=== PATIENT | female | born 1945 | race Caucasian/White ===

== ENCOUNTER 2016-07-23 13:52 | Emergency (ER) | payer OTHER ==
[2016-07-23] MEDS ORDERED: ALBUTEROL SO4 2.5/IPRATROPIUM 0.5 INH SOL 3 ML VIAL.NEB. NEB ONE ×3 (14:03→15:32)
[2016-07-23] MEDS ORDERED: methylPREDNISolone NA SUCC 125 MG/2 ML VIAL ONE (14:03)
[2016-07-23 14:04] VITALS: BMI 27.4
[2016-07-23] MEDS ORDERED: KETOROLAC TROMETHAMINE 30 MG/1 ML VIAL IVPUSH ONE (14:25)
[2016-07-23] MEDS ORDERED: KETOROLAC TROMETHAMINE 15 MG/ML VIAL ONE (14:31)
--- NOTE | 2016-07-23 14:38 | PDOC ---
History of Present Illness - General Chief Complaint: Shortness of Breath Stated Complaint: ASTHMA ATTACK Time Seen by Provider: 07/23/16 14:00 History Source: Patient Exam Limitations: No Limitations - History of Present Illness Initial Comments: 07/23/16 14:46 71y F hx of asthma , hl, presents with cough and back pain. Pt states she has been coughing for a whiel (Since last year) nonprducitve without any fever/ chills, pt states after coughing 4 days ago, she developed back pain worse when she coughs and moves (specifically with twisthing motion). pt denies any chest pain, shortness of breath, abd pain, n/v, leg swelling, hemoptysis. per ems pt had wheezing diffusely was given nebs and solumedrol. Past History - Past Medical History Allergies/Adverse Reactions: Allergies Allergy/AdvReac Type Severity Reaction Status Date / Time No Known Allergies Allergy Verified 07/23/16 14:04 Home Medications: Ambulatory Orders Ibuprofen [Motrin -] 800 mg PO TID #30 tablet 01/14/15 Rosuvastatin Calcium [Crestor] 20 mg PO HS 01/14/15 Albuterol Sulfate Inhaler - [Ventolin HFA Inhaler -] 1 - 2 inh PO Q4H #1 inhaler 07/23/16 Albuterol Sulfate Inhaler - [Ventolin Hfa Inhaler -] 2 inh PO Q6H 07/23/16 Benzonatate [Tessalon Pearls -] 100 mg PO TID 07/23/16 Guaifenesin AC [Robitussin AC] 10 ml PO Q8H PRN #150 ml MDD 30 07/23/16 Mometasone/Formoterol [Dulera 200 Mcg/5 Mcg Inhaler] 2 inh IH BID 07/23/16 Nabumetone [Relafen -] 1,000 mg PO DAILY 07/23/16 Prednisone [Deltasone -] 40 mg PO DAILY #8 tablet 07/23/16 Promethazine HCl [Phenergan Liquid -] 5 ml PO TID PRN 07/23/16 Pseudoephedrine HCl [Sudafed 12 Hour] 120 mg PO BID 07/23/16 Asthma: Yes Hypercholesterolemia: Yes - Psycho/Social/Smoking Cessation Hx Anxiety: No Suicidal Ideation: No Smoking History: Never smoked Have you smoked in the past 12 months: No Hx Alcohol Use: No Drug/Substance Use Hx: No Substance Use Type: None Review of Systems - Review of Systems Able to Perform ROS?: Yes Comments:: 07/23/16 14:49 Constitutional - no reported Fever, Chills, weakness, HEENT: no reported vision changes, sore throat Respiratory: +cough, no reported sob, hemoptysis Cardiac: no reported chest pain, palpitations, light headedness, leg swelling Abd/GI: no reported abd pain, nausea, vomiting, blood per rectum, melena, diarrhea : no reported dysuria, frequency, discharge Musculskelatal - +back pain, no reported joint swelling skin - no reported bruising, erythema, rash neurological: no reported headache, numbness, focal weakness, tingling, ataxia, weakness hematologic: no reported anemia, easy bruising, easy bleeding *Physical Exam - Vital Signs Last Vital Signs Temp Pulse Resp BP Pulse Ox 98.7 F 97 H 18 153/85 95 07/23/16 14:01 07/23/16 14:01 07/23/16 14:01 07/23/16 14:01 07/23/16 14:01 - Physical Exam Comments: 07/23/16 14:49 GENERAL: The patient is awake, alert, and fully oriented, Nontoxic - in no acute distress. HEAD: Normocephalic, atraumatic. EYES: extraocular movements intact, sclera anicteric, conjunctiva clear. ENT: Normal voice, Moist mucous membranes, +nasal congestion NECK: Normal range of motion, supple LUNGS: scattered wheezing, no respiratory distress, no rales HEART: Regular rate and rhythm, normal S1 and S2 without murmur, rub or gallop. ABDOMEN: Soft, nontender, normoactive bowel sounds. No guarding, no rebound. No CVA tenderness BACK: no focal tenderness in cervical/thoracic/lumbar midline, +tenderness of the lower back/flank also reproducible when pt is turned to left EXTREMITIES: Normal range of motion, no edema. No clubbing or cyanosis. No cords, erythema, or tenderness. NEUROLOGICAL: No facial assymetry, Normal speech, PSYCH: Normal mood, normal affect. SKIN: Warm, Dry, normal turgor, Heart Score/ECG Review - ECG Impressions Comment:: 07/23/16 16:08 Twelve-lead EKG was performed and reviewed by me. There is normal sinus rhythm with a normal rate. rate of 94 The axis is normal. The intervals are normal. There is normal R wave progression There are no ST or T wave abnormalities. Impression: Normal twelve-lead EKG ED Treatment Course - LABORATORY CBC & Chemistry Diagram: 07/23/16 14:40 07/23/16 14:40 - RADIOLOGY Radiology Studies Ordered: Category Date Time Status CHEST X-RAY PORTABLE* [RAD] Stat Radiology 07/23/16 14:25 Ordered Medical Decision Making - Medical Decision Making 07/23/16 16:56 71y F presents with worsening coughing especially in evening as well as 4 days of L sided back pain after a coughing epsidoe. pts exam noted for mild wheezing, s/p solumedrol, nebs by EMS pts labs unremarakble cxr negative suspect asthma exacerbation will give rx for steroids, nebs will hve pt fu with pmd and pulmonary I discussed the physical exam findings, ancillary test results and final diagnoses with the patient. I answered all of the patient's questions. The patient was satisfied with the care received and felt comfortable with the discharge plan and treatment plan. The patient will call their primary care physician within 24 hours to arrange follow-up and will return to the Emergency Department with any new, persistent or worsening symptoms. case was discused with the pts PMD - agree with management and will hav pt fu with him next week. *DC/Admit/Observation/Transfer Diagnosis at time of Disposition: Asthma attack, Bronchospasm - Discharge Dispostion Disposition: HOME Condition at time of disposition: Improved Admit: No - Prescriptions Prescriptions: Prednisone [Deltasone -] 40 mg PO DAILY #8 tablet Guaifenesin AC [Robitussin AC] 10 ml PO Q8H PRN #150 ml MDD 30 PRN Reason: Cough Albuterol Sulfate Inhaler - [Ventolin HFA Inhaler -] 1 - 2 inh PO Q4H #1 inhaler - Referrals Referrals: Alex Proctor [Primary Care Provider] - - Patient Instructions Printed Discharge Instructions: DI for Asthma -- Adult Additional Instructions: Return to the emergency department immediately with ANY new, persistent or worsening symptoms. You MUST call and follow up with your doctor tomorrow for further evaluation of your symptoms. Results were discussed with you. Please make sure your doctor reviews the results of your emergency evaluation. If you had any xrays during your visit, it was read preliminarily by myself, a Radiologist will review it and if there are any additional findings we will call you. Print Language: BARBADIAN
[2016-07-23 14:45] LABS: VENOUS BLOOD GAS HCO3 25.5 meq/L (19-25); VENOUS PH 7.4 (7.32-7.42)
[2016-07-23 14:47] LABS: BASOPHIL 0.5 % (0-2.0); EOSINOPHIL 10.4 % (0-4.5); MCH 27.6 pg (25.7-33.7); MCHC 33.1 g/dl (32.0-36.0); MEAN CELL VOLUME 83.3 fl (80-96); MEAN PLT VOLUME 7.2 fl (7.5-11.1); NEUTROPHILS 72.9 % (42.8-82.8); PLATELET COUNT 265 K/MM3 (134-434); RDW 14.3 % (11.6-15.6); WHITE BLOOD COUNT 8.5 K/mm3 (4.0-10.0)
[2016-07-23 15:12] LABS: ALBUMIN 3.5 g/dl (3.4-5.0); ANION GAP 13 (8-16); BILIRUBIN,TOTAL 0.6 mg/dL (0.2-1.0); CALCIUM 8.8 mg/dL (8.5-10.1); CO2 26 mmol/L (21-32); CREATININE 0.7 mg/dL (0.55-1.02); GLUCOSE,RANDOM 101 mg/dL (74-106); SGOT/AST 14 U/L (15-37); SGPT/ALT 21 U/L (12-78); TOT PROT 7.9 g/dl (6.4-8.2)
[2016-07-23 15:14] LABS: ALK PHOS 118 U/L (45-117); TROPONIN I < 0.02 ng/ml (0.00-0.05)
[2016-07-23] MEDS ORDERED: POTASSIUM CHLORIDE TABS 20 MEQ TABLET.ER (FP) PO ONE ×2 (15:44→15:56)
[2016-07-23] MEDS ORDERED: guaiFENesin/CODEINE 10 ML UNIT-DOSE CUPS PO ONE (15:57)
[2016-07-23] MEDS ORDERED: guaiFENesin/CODEINE 5 ML UNIT-DOSE CUPS PO ONE (15:58)
[2016-07-23] MEDS ORDERED: OXYCODONE/APAP 5/325MG COMBO TABLET PO ONE (16:55)
[2016-07-23] MEDS ORDERED: OXYCODONE/APAP 5/325MG COMBO TABLET ONE (17:11)
[2016-07-23 17:17] VITALS: BP 147/82; PULSE 96; TEMP 97.9
--- NOTE | 2016-07-23 18:20 | EKG ---
Test Reason : Blood Pressure : / mmHG Vent. Rate : 094 BPM Atrial Rate : 094 BPM P-R Int : 208 ms QRS Dur : 102 ms QT Int : 376 ms P-R-T Axes : 072 041 046 degrees QTc Int : 470 ms NORMAL SINUS RHYTHM POSSIBLE LEFT ATRIAL ENLARGEMENT BORDERLINE ECG WHEN COMPARED WITH ECG OF 11-MAR-2016 10:25, VENT. RATE HAS INCREASED BY 38 BPM QT HAS LENGTHENED Confirmed by DANIEL BOYCE, TONG ([id number]) on 07/23/2016 6:20:05 PM Referred By: Confirmed By:TONG SANCHEZ MD
== END 2016-07-23 17:28 | disposition home or self-care (01) ==
LOC: JER 13:52
PROC: 3E0F7GC Introduction of Other Therapeutic Substance into Respiratory Tract, Via Natural or Artificial Opening (ICD-10-PCS; principal; 2016-07-23)
PROC: 3E0333Z Introduction of Anti-inflammatory into Peripheral Vein, Percutaneous Approach (ICD-10-PCS; 2016-07-23)
DX: J45.901 Unspecified asthma with (acute) exacerbation (principal); E78.00 Pure hypercholesterolemia, unspecified
CPT/HCPCS: 36415; 71010-TC; 80053; 82550; 82803; 84484; 85025; 93005; 93010; 99283-25

== ENCOUNTER 2016-09-09 15:04 | Emergency (ER) | payer OTHER ==
[2016-09-09 15:18] VITALS: BP 149/79; TEMP 98.8; BMI 26.9
[2016-09-09] MEDS ORDERED: ALBUTEROL SO4 0.083% IH SOL 2.5 MG/3 ML VIAL.NEB. NEB ONE ×2 (16:26→16:55)
--- NOTE | 2016-09-09 16:33 | PDOC ---
History of Present Illness - General History Source: Patient Exam Limitations: No Limitations <Boston Jones - Last Filed: 09/09/16 21:29> - History of Present Illness Initial Comments: 09/09/16 18:04 Patient is a 71 year old female with significant medical hx of asthma and HTD who is presenting to the ED with productive cough for the past year. The patient endorses some associated intermittent chills, nasal congestion, and chest congestion with cough. Patient has been followed by her PMD and ENT for her symptoms, and has received multiple cultures and testing with no conclusion. The patient states that shes been on multiple abx, steroids, and other treatments that have not relieved her symptoms. She is scheduled for a CT tomorrow that was ordered by specialist. Denies any fever, chest pain, shortness of breath, sore throat, headaches, lightheadedness, weakness, or dizziness. The patient was seen in the ED on 07/23/16 for the similar complaint. PMD: Alex Proctor MD <Nicol Cisneros - Last Filed: 09/09/16 21:54> - General Chief Complaint: Respiratory Stated Complaint: SOB, BACK PAIN, COUGH Time Seen by Provider: 09/09/16 16:17 Past History - Past Medical History Asthma: Yes Hypercholesterolemia: Yes - Psycho/Social/Smoking Cessation Hx Anxiety: No Suicidal Ideation: No Smoking History: Never smoked Have you smoked in the past 12 months: No Hx Alcohol Use: No Drug/Substance Use Hx: No Substance Use Type: None <Boston Jones - Last Filed: 09/09/16 21:29> <Nicol Cisneros - Last Filed: 09/09/16 21:54> - Past Medical History Allergies/Adverse Reactions: Allergies Allergy/AdvReac Type Severity Reaction Status Date / Time prednisone AdvReac Verified 09/09/16 15:12 Home Medications: Ambulatory Orders Ibuprofen [Motrin -] 800 mg PO TID #30 tablet 01/14/15 Rosuvastatin Calcium [Crestor] 20 mg PO HS 01/14/15 Albuterol Sulfate Inhaler - [Ventolin HFA Inhaler -] 1 - 2 inh PO Q4H #1 inhaler 07/23/16 Albuterol Sulfate Inhaler - [Ventolin Hfa Inhaler -] 2 inh PO Q6H 07/23/16 Benzonatate [Tessalon Pearls -] 100 mg PO TID 07/23/16 Guaifenesin AC [Robitussin AC] 10 ml PO Q8H PRN #150 ml MDD 30 07/23/16 Mometasone/Formoterol [Dulera 200 Mcg/5 Mcg Inhaler] 2 inh IH BID 07/23/16 Nabumetone [Relafen -] 1,000 mg PO DAILY 07/23/16 Prednisone [Deltasone -] 40 mg PO DAILY #8 tablet 07/23/16 Promethazine HCl [Phenergan Liquid -] 5 ml PO TID PRN 07/23/16 Pseudoephedrine HCl [Sudafed 12 Hour] 120 mg PO BID 07/23/16 Benzonatate [Tessalon Pearls -] 100 mg PO TID PRN #21 capsule 09/09/16 Review of Systems - Review of Systems Comments:: 09/09/16 18:06 GENERAL/CONSTITUTIONAL: Chills. No fever. No weakness. HEAD, EYES, EARS, NOSE AND THROAT: Nasal congestion. No change in vision. No ear pain or discharge. No sore throat. CARDIOVASCULAR: No chest pain or shortness of breath. RESPIRATORY: Productive cough, chest congestion. No wheezing, or hemoptysis. GASTROINTESTINAL: No nausea, vomiting, diarrhea or constipation. GENITOURINARY: No dysuria, frequency, or change in urination. MUSCULOSKELETAL: No joint or muscle swelling or pain. No neck or back pain. SKIN: No rash NEUROLOGIC: No headache, vertigo, loss of consciousness, or change in strength/ sensation. <Nicol Cisneros - Last Filed: 09/09/16 21:54> *Physical Exam - Vital Signs Last Vital Signs Temp Pulse Resp BP Pulse Ox 98.8 F 87 19 149/79 95 09/09/16 15:13 09/09/16 15:13 09/09/16 15:13 09/09/16 15:13 09/09/16 15:13 <Boston Jones - Last Filed: 09/09/16 21:29> - Vital Signs Last Vital Signs Temp Pulse Resp BP Pulse Ox 98.8 F 101 H 19 149/79 95 09/09/16 15:13 09/09/16 17:25 09/09/16 15:13 09/09/16 15:13 09/09/16 17:25 - Physical Exam Comments: 09/09/16 18:07 GENERAL: Awake, alert, and fully oriented, in no acute distress HEAD: No signs of trauma EYES: PERRLA, EOMI, sclera anicteric, conjunctiva clear ENT: Auricles normal inspection, hearing grossly normal, nares patent, oropharynx clear without exudates. Moist mucosa. Nasal congestion. NECK: Normal ROM, supple, no lymphadenopathy, JVD, or masses LUNGS: Coughing frequently during exam. Intermittent rhonchorous breath sounds bilaterally. No wheezes, and no crackles HEART: Regular rate and rhythm, normal S1 and S2, no murmurs, rubs or gallops ABDOMEN: Soft, nontender, normoactive bowel sounds. No guarding, no rebound. No masses EXTREMITIES: Normal range of motion, no edema. No clubbing or cyanosis. No cords, erythema, or tenderness NEUROLOGICAL: Cranial nerves II through XII grossly intact. Normal speech, normal gait SKIN: Warm, Dry, normal turgor, no rashes or lesions noted. ENDOCRINE: No increased thirst. No abnormal weight change. HEMATOLOGIC/LYMPHATIC: No anemia, easy bleeding, or history of blood clots. ALLERGIC/IMMUNOLOGIC: No hives or skin allergy. <Nicol Cisneros - Last Filed: 09/09/16 21:54> Heart Score/ECG Review #1 ECG reviewed & interpreted by me at: 17:35 09/09/16 17:48 NSR 93, no std/jarek, TWI III, TWI V3, QTC 455 msec <Boston Jones - Last Filed: 09/09/16 21:29> ED Treatment Course - LABORATORY CBC & Chemistry Diagram: 09/09/16 17:20 09/09/16 17:20 - RADIOLOGY Radiology Studies Ordered: Category Date Time Status CHEST PA & LAT [RAD] Stat Radiology 09/09/16 16:26 Ordered <Boston Jones - Last Filed: 09/09/16 21:29> - LABORATORY CBC & Chemistry Diagram: 09/09/16 17:20 09/09/16 17:20 - ADDITIONAL ORDERS Additional order review: Laboratory Results 09/09/16 09/09/16 17:20 17:20 Sodium 140 Potassium 3.2 L Chloride 101 Carbon Dioxide 29 Anion Gap 10 BUN 5 L D Creatinine 0.6 Creat Clearance w eGFR > 60 Random Glucose 86 Lactic Acid 1.099 Calcium 9.1 Total Bilirubin 0.5 AST 13 L ALT 14 D Alkaline Phosphatase 111 Creatine Kinase 69 Troponin I < 0.02 Total Protein 8.1 Albumin 3.2 L 09/09/16 17:20 Influenza Types A,B Antigen (ARIES) - Final Nasopharyngeal Swab - Final 09/09/16 17:20 RBC 4.27 MCV 82.3 MCHC 32.9 RDW 14.3 MPV 7.9 Neutrophils % Y Lymphocytes % Y - RADIOLOGY Radiograph Interpretation: 09/09/16 18:47 Chest X-Ray Impression: Right hilum for which further evaluation with contrast -enhanced CT scan of the chest is recommended. ADDENDUM: There is an error in the impression that should be read; Prominent right hilum for which further evaluation with contrast-enhanced CT scan of the chest recommended. Reported By: Lay Heck MD 09/09/16 21:[address] Impression: Large mediastinal and bilateral hilar lymph nodes, as described. Right infrahilar 2.3 cm mass suggestive of an infrahilar lymph node versus lung mass for which further evaluation is recommended. It is causing moderate narrowing of the adjacent right middle lobe bronchus. There is adjacent subsegmental atelectasis and scarring in the dependent portion of the right middle lobe, posteriorly. Reported By: Lay Heck md - Medications Given in the ED: ED Medications Discontinued Medications Generic Name Dose Route Start Last Admin Trade Name Freq PRN Reason Stop Dose Admin Albuterol Sulfate 1 amp 09/09/16 16:26 09/09/16 17:21 Ventolin 0.083% Nebulizer Soln - NEB 09/09/16 16:27 1 amp ONCE ONE Administration <Nicol Cisneros - Last Filed: 09/09/16 21:54> Medical Decision Making - Medical Decision Making 09/09/16 16:28 A portion of this note was written by my scribe, under my supervision. Vital Signs Temp Pulse Resp BP Pulse Ox 98.8 F 87 19 149/79 95 09/09/16 15:13 09/09/16 15:13 09/09/16 15:13 09/09/16 15:13 09/09/16 15:13 71 year old female c/ pmh of asthma, HLD p/w cough x 1 year. The patient reports coughing x 1 year with nasal congestion and chest congestion. No fevers. The patient has been under significant investigation with her PMD and ENT with multiple tests including cultures, nasal scoping, but with no avail. She has been on intermittent antibiotics, steroids, treatments with no help. Pt was referred to see another specialist and has a CT scan prepared for tomorrow. Pt continues to feel unwell with intermittent chills x 1 year. Came in for an evaluation. Adult sepsis protocol initiated. Unclear what the etiology is given persistence of symptoms. Will obtain labs, chest xray, cultures and reassess. Trial nebs. This is likely a chronic condition that will require further outpatient workup given the chronicity of complaints. 09/09/16 21:20 Chest x-ray demonstrates abnormal findings requesting CT chest with IV contrast. CT chest was pursued. Demonstrates large mediastinal and bilateral hilar lymph nodes. Right infrahilar 2.3 certainly or masses suggestive of an for hilar lymph node versus lung mass. It is causing moderate narrowing of the adjacent right middle lobe bronchus. There is adjacent subsegmental atelectasis and scarring in the dependent portion of the right middle lobe, posteriorly. CBC, BMP 09/09/16 17:20 09/09/16 17:20 CMP Sodium 140 mmol/L (136-145) 09/09/16 17:20 Potassium 3.2 mmol/L (3.5-5.1) L 09/09/16 17:20 Chloride 101 mmol/L (98-107) 09/09/16 17:20 Carbon Dioxide 29 mmol/L (21-32) 09/09/16 17:20 Anion Gap 10 (8-16) 09/09/16 17:20 BUN 5 mg/dL (7-18) L D 09/09/16 17:20 Creatinine 0.6 mg/dL (0.55-1.02) 09/09/16 17:20 Creat Clearance w eGFR > 60 (>60) 09/09/16 17:20 Random Glucose 86 mg/dL (74-106) 09/09/16 17:20 Lactic Acid 1.099 mmol/L (0.4-2.0) 09/09/16 17:20 Calcium 9.1 mg/dL (8.5-10.1) 09/09/16 17:20 Total Bilirubin 0.5 mg/dL (0.2-1.0) 09/09/16 17:20 AST 13 U/L (15-37) L 09/09/16 17:20 ALT 14 U/L (12-78) D 09/09/16 17:20 Alkaline Phosphatase 111 U/L (45-117) 09/09/16 17:20 Creatine Kinase 69 IU/L (26-192) 09/09/16 17:20 Troponin I < 0.02 ng/ml (0.00-0.05) 09/09/16 17:20 Total Protein 8.1 g/dl (6.4-8.2) 09/09/16 17:20 Albumin 3.2 g/dl (3.4-5.0) L 09/09/16 17:20 I explained to the patient that she had very abnormal CAT scan demonstrated multiple lymph nodes and lung mass. These findings are concerning for lymphoma versus lung cancer. I had explained to the patient that this is malignancy until proven otherwise. He should son is at the bedside and verbalized understanding as well as the patient. Given that this is a chronic issue for the one year, and that patient has follow-up with her doctors, and the patient is on respiratory distress, we'll have her follow-up as an outpatient. Patient verbalizes and agrees with the plan. We'll give referral to router operator and oncologist. Return precautions given including difficulty breathing. I discussed the physical exam findings, ancillary test results and final diagnoses with the patient. I answered all of the patient's questions. The patient was satisfied with the care received and felt comfortable with the discharge plan and treatment plan. The patient will call their primary care physician within 24 hours to arrange follow-up and will return to the Emergency Department with any new, persistant or worsening symptoms. <Boston Jones - Last Filed: 09/09/16 21:29> *DC/Admit/Observation/Transfer - Discharge Dispostion Admit: No <Boston Jones - Last Filed: 09/09/16 21:29> - Attestations Scribe Attestion: 09/09/16 18:08 Documentation prepared by Nicol Cisneros, acting as biomedical technician for Boston Jones MD. <Nicol Cisneros - Last Filed: 09/09/16 21:54> Diagnosis at time of Disposition: Lung mass - Discharge Dispostion Disposition: HOME Condition at time of disposition: Stable - Prescriptions Prescriptions: Benzonatate [Tessalon Pearls -] 100 mg PO TID PRN #21 capsule PRN Reason: Cough - Referrals Referrals: Alex Proctor [Primary Care Provider] - Cesar Roblero MD [Staff Physician] - Luis Hinkle MD [Staff Physician] - Laura Mustafa MD [Staff Physician] - - Patient Instructions Printed Discharge Instructions: DI for Cough -- Adult Additional Instructions: You have been given a copy of your CAT scan. Your CAT scan has multiple enlarged lymph nodes and lung mass. This needs to be investigated for potential cancer. It is very important that you schedule appointment with a router operator and oncologist. Here are the numbers for them. Call tomorrow to schedule appointment.
[2016-09-09 17:29] VITALS: PULSE 101
[2016-09-09 17:33] LABS: MCH 27.1 pg (25.7-33.7); MCHC 32.9 g/dl (32.0-36.0); MEAN CELL VOLUME 82.3 fl (80-96); MEAN PLT VOLUME 7.9 fl (7.5-11.1); PLATELET COUNT 275 K/MM3 (134-434); RDW 14.3 % (11.6-15.6); WHITE BLOOD COUNT 10.1 K/mm3 (4.0-10.0)
[2016-09-09 17:46] LABS: INR 1.23 (0.82-1.09); PROTHROMBIN TIME (PATIENT) 13.6 SEC (9.98-11.88)
[2016-09-09 17:49] LABS: ACTIVATED PTT 32.3 SECONDS (26.9-34.4)
[2016-09-09 17:57] LABS: ALBUMIN 3.2 g/dl (3.4-5.0); ANION GAP 10 (8-16); BILIRUBIN,TOTAL 0.5 mg/dL (0.2-1.0); CALCIUM 9.1 mg/dL (8.5-10.1); CO2 29 mmol/L (21-32); COCKROFT - GAULT 90.5165; CREATININE 0.6 mg/dL (0.55-1.02); GLUCOSE,RANDOM 86 mg/dL (74-106); SGOT/AST 13 U/L (15-37); SGPT/ALT 14 U/L (12-78); TOT PROT 8.1 g/dl (6.4-8.2)
[2016-09-09 18:00] LABS: ALK PHOS 111 U/L (45-117); TROPONIN I < 0.02 ng/ml (0.00-0.05)
[2016-09-09] MEDS ORDERED: POTASSIUM CHLORIDE TABS 20 MEQ TABLET.ER (FP) PO ONE ×2 (21:20→21:39)
[2016-09-09 22:18] LABS: ANISOCYTOSIS 1+; PLATELET COMMENT2 NO CLOTTING DETECTED; PLATELET ESTIMATE ADEQUATE (NORMAL)
--- NOTE | 2016-09-12 12:54 | EKG ---
Test Reason : Blood Pressure : / mmHG Vent. Rate : 093 BPM Atrial Rate : 093 BPM P-R Int : 166 ms QRS Dur : 102 ms QT Int : 366 ms P-R-T Axes : 034 004 016 degrees QTc Int : 455 ms NORMAL SINUS RHYTHM NORMAL ECG WHEN COMPARED WITH ECG OF 23-JUL-2016 14:28, T WAVE VARIATION Confirmed by PREET WEST MD ([id number]) on 09/12/2016 12:53:42 PM Referred By: Confirmed By:PREET WEST MD
== END 2016-09-09 22:03 | disposition home or self-care (01) ==
LOC: JER 15:04
PROC: 3E0F7GC Introduction of Other Therapeutic Substance into Respiratory Tract, Via Natural or Artificial Opening (ICD-10-PCS; principal; 2016-09-09)
DX: R91.8 Other nonspecific abnormal finding of lung field (principal); J45.909 Unspecified asthma, uncomplicated
CPT/HCPCS: 71020-TC; 71260-TC; 80053; 82550; 83605; 84484; 85025; 85610; 85730; 86850; 86900; 86901; 87040; 87804; 93005; 93010; 99282-25

== ENCOUNTER 2016-09-22 21:27 | Inpatient (IN) | payer OTHER ==
[2016-09-22] MEDS ORDERED: MAGNESIUM SULF 50% (8.12 MEQ/2 ML-1 GM VIAL) ONE ×2 (21:39→22:07)
[2016-09-22] MEDS ORDERED: ALBUTEROL SO4 2.5/IPRATROPIUM 0.5 INH SOL 3 ML VIAL.NEB. NEB ONE ×3 (21:40→22:08)
[2016-09-22 21:41] VITALS: BMI 26.2
--- NOTE | 2016-09-22 21:45 | PDOC ---
History of Present Illness <Nicol Csineros - Last Filed: 09/22/16 22:26> - General History Source: Patient Exam Limitations: No Limitations - History of Present Illness Initial Comments: 09/23/16 01:00 Patient was seen and evaluated by me immediately upon arrival. This H&P is being recorded post admission. Patient is 71-year-old female with history of asthma, brought in by EMS for shortness of breath that started several hours prior to arrival. Patient reports worsening dyspnea with minimal exertion for the past several days culminating with difficulty breathing on the day of presentation to the emergency room. Patient reports chronic productive cough with yellow sputum that has not changed significantly. Patient denies fever but complains of intermittent chills. Patient reports that her home albuterol nebulizer therapy did not help her symptoms. Patient has recently completed a prolonged course of prednisone. Patient denies chest pain/nausea/vomiting/ diarrhea/lower extremity swelling. Patient does report a severely pruritic erythematous rash to the lower extremities bilaterally, buttocks and trunk. Patient in the past and been treated with permethrine cream. REVIEW OF SYSTEMS CONSTITUTIONAL: No fever, no chills, no fatigue EYES: No visual changes ENT: No ear pain, no sore throat CARDIOVASCULAR: No chest pain, no palpitations RESPIRATORY: + cough, + SOB GI: No abdominal pain, no nausea, no vomiting, no constipation, no diarrhea GENITOURINARY: No dysuria, no frequency, no hematuria MUSKULOSKELETAL: No backpain, no joint pain, no myalgias SKIN: + Pruritic rash NEURO: No headache EXAMINATION CONSTITUTIONAL: On initial evaluation, patient was noted to be tachypneic and dyspneic, speaking in short phrases only, with paroxysms of cough, in moderate respiratory distress. HEAD: Normocephalic; atraumatic EYES: PERRL; EOM intact ENMT: External appears normal; normal oropharynx NECK: Supple; non-tender; no JVD CARD: Tachycardic; Normal S1, S2; no murmurs, rubs, or gallops RESP: On initial evaluation, patient noted to be tachypneic; with diffuse expiratory wheezing bilaterally significantly decreased air entry; respiratory rate on initial evaluation was noted to be 22; oxygen saturation room air was noted to be 88%, improving to 95% on 2 L via nasal cannula ABD: Soft, non-distended; non-tender; no palpable organomegaly, no palpable hernias EXT: Normal ROM in all four extremities; non-tender to palpation; distal pulses intact SKIN: Warm, dry, + maculopapular rash to the lower extremities, buttocks and trunk with extensive excoriations NEURO: No focal neurological deficiencies. <Hardik Iqbal - Last Filed: 09/23/16 01:42> - General Chief Complaint: Respiratory Stated Complaint: Respiratory Time Seen by Provider: 09/22/16 21:45 Past History <Nicol Cisneros - Last Filed: 09/22/16 22:26> - Past Medical History Asthma: Yes Hypercholesterolemia: Yes - Immunization History Immunization Up to Date: No - Psycho/Social/Smoking Cessation Hx Anxiety: No Suicidal Ideation: No Smoking History: Never smoked Have you smoked in the past 12 months: No Information on smoking cessation initiated: No Hx Alcohol Use: No Drug/Substance Use Hx: No Substance Use Type: None <Hardik Iqbal - Last Filed: 09/23/16 01:42> - Past Medical History Allergies/Adverse Reactions: Allergies Allergy/AdvReac Type Severity Reaction Status Date / Time prednisone AdvReac Verified 09/22/16 21:35 Home Medications: Ambulatory Orders Ibuprofen [Motrin -] 800 mg PO TID #30 tablet 01/14/15 Rosuvastatin Calcium [Crestor] 20 mg PO HS 01/14/15 Albuterol Sulfate Inhaler - [Ventolin HFA Inhaler -] 1 - 2 inh PO Q4H #1 inhaler 07/23/16 Albuterol Sulfate Inhaler - [Ventolin Hfa Inhaler -] 2 inh PO Q6H 07/23/16 Benzonatate [Tessalon Pearls -] 100 mg PO TID 07/23/16 Guaifenesin AC [Robitussin AC] 10 ml PO Q8H PRN #150 ml MDD 30 07/23/16 Mometasone/Formoterol [Dulera 200 Mcg/5 Mcg Inhaler] 2 inh IH BID 07/23/16 Nabumetone [Relafen -] 1,000 mg PO DAILY 07/23/16 Prednisone [Deltasone -] 40 mg PO DAILY #8 tablet 07/23/16 Promethazine HCl [Phenergan Liquid -] 5 ml PO TID PRN 07/23/16 Pseudoephedrine HCl [Sudafed 12 Hour] 120 mg PO BID 07/23/16 Benzonatate [Tessalon Pearls -] 100 mg PO TID PRN #21 capsule 09/09/16 *Physical Exam - Vital Signs Last Vital Signs Temp Pulse Resp BP Pulse Ox 99.0 F 108 H 28 H 140/98 96 09/22/16 21:35 09/22/16 21:35 09/22/16 21:35 09/22/16 21:35 09/22/16 21:35 <Nicol Cisneros - Last Filed: 09/22/16 22:26> - Vital Signs Last Vital Signs Temp Pulse Resp BP Pulse Ox 108 H 28 H 140/98 96 09/22/16 21:35 09/22/16 21:35 09/22/16 21:35 09/22/16 21:35 <Hardik Iqbal - Last Filed: 09/23/16 01:42> Heart Score/ECG Review - ECG Intrepretation Comment:: 09/23/16 01:38 111, sinus tachycardia, left atrial enlargement, normal axis, inverted T waves in 3 and aVF, negative voltage criteria for LVH, abnormal EKG. <Hardik Iqbal - Last Filed: 09/23/16 01:42> ED Treatment Course - RADIOLOGY Radiograph Interpretation: 09/22/16 22:09 Sinus tachycardia at 111 bpm Possible left atrial enlargement T wave abnormality, consider inferior ischemia Abnormal ECG 09/22/16 22:26 Chest X-Ray Impression: Moderate chronic interstitial lung disease with no evidence of acute pathology. Reported By: Eliezer Casanova MD <Nicol Cisneros - Last Filed: 09/22/16 22:26> - LABORATORY CBC & Chemistry Diagram: 09/22/16 23:10 09/22/16 23:10 <Hardik Iqbal - Last Filed: 09/23/16 01:42> Medical Decision Making - Medical Decision Making 09/23/16 01:39 Patient is 71-year-old female with history of asthma presents to the ER with signs and symptoms of acute asthma exacerbation and a pruritic rash. Patient received continuous nebulizer therapy with Combivent, Solu-Medrol and magnesium sulfate with clinical improvement, decreased expiratory wheezing and increased air entry bilaterally. Patient continues to have expiratory wheezing and intermittent rhonchi diffusely in all lung serna. I saturation on 2 L via nasal cannula is noted to be 94%. This time, patient is resting comfortably. CBC reveals no evidence of leukocytosis, predominance of isn't of pills is noted. CMP reveals moderate hypokalemia of 2.9. EKG reveals no evidence of prolonged QTc. Patient received Selene Dur-40 mEq by mouth and is currently receiving KCl IV. Chest x-ray reveals increased interstitial markings likely consistent with chronic interstitial lung disease. A CT performed at the one month prior at this institution revealed enlarged bilateral mediastinal lymphadenopathy and a questionable right infrahilar mass versus lymph node. Differential diagnoses include sarcoid. Patient is scheduled follow-up with pulmonary in September. At this time, patient will require admission for continuous nebulizer therapy, supplemental O2 support and continuous potassium replenishment. Given the patient's ration previous history of being treated with permethrine, patient will be placed and contact isolation. <Hardik Iqbal - Last Filed: 09/23/16 01:42> *DC/Admit/Observation/Transfer <Nicol Cisneros - Last Filed: 09/22/16 22:26> - Discharge Dispostion Admit: Yes <Hardik Iqbal - Last Filed: 09/23/16 01:42> Diagnosis at time of Disposition: Rash Asthma with acute exacerbation Qualifiers: Asthma severity: moderate persistent Qualified Code(s): J45.41 - Moderate persistent asthma with (acute) exacerbation - Discharge Dispostion Condition at time of disposition: Fair
[2016-09-22] MEDS ORDERED: MAGNESIUM SULF 50% (8.12 MEQ/2 ML-1 GM VIAL) IVPB ONE (22:00)
[2016-09-22] MEDS ORDERED: methylPREDNISolone NA SUCC 125 MG/2 ML VIAL IVPB ONE (22:00)
[2016-09-22] MEDS ORDERED: methylPREDNISolone NA SUCC 125 MG/2 ML VIAL ONE (22:08)
[2016-09-22] MEDS ORDERED: LEVOFLOXACIN 500 MG IVPB 100 ML IVPB ONE ×2 (22:52→23:15)
[2016-09-22 23:16] LABS: MCH 27.1 pg (25.7-33.7); MCHC 33.1 g/dl (32.0-36.0); MEAN CELL VOLUME 81.9 fl (80-96); MEAN PLT VOLUME 7.6 fl (7.5-11.1); PLATELET COUNT 255 K/MM3 (134-434); RDW 14.8 % (11.6-15.6); WHITE BLOOD COUNT 11.1 K/mm3 (4.0-10.0)
[2016-09-22 23:32] LABS: INR 1.19 (0.82-1.09); PROTHROMBIN TIME (PATIENT) 13.1 SEC (9.98-11.88)
[2016-09-22 23:42] LABS: ALBUMIN 2.8 g/dl (3.4-5.0); ANION GAP 13 (8-16); BILIRUBIN,TOTAL 0.4 mg/dL (0.2-1.0); CALCIUM 8.4 mg/dL (8.5-10.1); CO2 23 mmol/L (21-32); CREATININE 0.6 mg/dL (0.55-1.02); GLUCOSE,RANDOM 152 mg/dL (74-106); SGOT/AST 11 U/L (15-37); SGPT/ALT 16 U/L (12-78); TOT PROT 7.7 g/dl (6.4-8.2)
[2016-09-22 23:44] LABS: ALK PHOS 110 U/L (45-117); TROPONIN I < 0.02 ng/ml (0.00-0.05)
[2016-09-22 23:46] LABS: PLATELET ESTIMATE ADEQUATE (NORMAL)
[2016-09-22] MEDS ORDERED: POTASSIUM CHLORIDE TABS 20 MEQ TABLET.ER (FP) PO ONE ×2 (23:46→23:53)
[2016-09-22] MEDS ORDERED: KCL 10 MEQ IVPB 100 ML IVPB ONE (23:53)
[2016-09-23] MEDS ORDERED: KCL 10 MEQ IVPB 100 ML IVPB ONE ×2 (01:26→02:54)
[2016-09-23] MEDS: KCL 10 MEQ IVPB 100 ML IVPB SCH ×3 (01:27→02:52)
--- NOTE | 2016-09-23 02:08 | HP ---
CHIEF COMPLAINT: shortness of breath PCP: Dr Espino Pulmonology: Dr So García HISTORY OF PRESENT ILLNESS: 71 abad old male with pmh asthma, HPLD presented to ED brought by ambulance with complaint of shortness of breath. Yesterday, the patient started having severe shortness of breath with wheezing and her inhaler was of no help. Pt also complained of dyspnea on exertion, orthopnea, productive cough wiht yellow sputum. No fever or chills, no n/v, no chest pain or palpitation. The patient has been having shortness of breath and cough chronically for the past year and the symptoms has been worsening with increased frequency of ED visits. The patient has just finished a long steroid taper and was supposed to see a rules examiner Dr García on Tuesday September 27, 2016. Pt also said she was supposed to have sinus surgery for chronic sinusitis and deviated septum. Pt aslo complained of poor appetite and 10 lbs weight loss in past 2 weeks. 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 Family History: brother with multiple CA, first one at 49, father with asthma and CA Allergies prednisone Adverse Reaction (Verified 09/22/16 21:35) HOME MEDICATIONS: Home Medications Medication Instructions Recorded Ibuprofen [Motrin -] 800 mg PO TID #30 tablet 01/14/15 Rosuvastatin Calcium [Crestor] 20 mg PO HS 01/14/15 Albuterol Sulfate Inhaler - 1 - 2 inh PO Q4H #1 inhaler 07/23/16 [Ventolin HFA Inhaler -] Albuterol Sulfate Inhaler - 2 inh PO Q6H 07/23/16 [Ventolin Hfa Inhaler -] Benzonatate [Tessalon Pearls -] 100 mg PO TID 07/23/16 Guaifenesin AC [Robitussin AC] 10 ml PO Q8H PRN #150 ml MDD 30 07/23/16 Mometasone/Formoterol [Dulera 200 2 inh IH BID 07/23/16 Mcg/5 Mcg Inhaler] Nabumetone [Relafen -] 1,000 mg PO DAILY 07/23/16 Prednisone [Deltasone -] 40 mg PO DAILY #8 tablet 07/23/16 Promethazine HCl [Phenergan Liquid 5 ml PO TID PRN 07/23/16 -] Pseudoephedrine HCl [Sudafed 12 120 mg PO BID 07/23/16 Hour] Benzonatate [Tessalon Pearls -] 100 mg PO TID PRN #21 capsule 09/09/16 REVIEW OF SYSTEMS CONSTITUTIONAL: generalized weakness,loss of appetite, weight change Absent: fever, chills, diaphoresis, malaise, HEENT: rhinorrhea, nasal congestion Absent: throat pain, throat swelling, difficulty swallowing, mouth swelling, ear pain, eye pain, visual changes CARDIOVASCULAR: lightheadedness, Absent: chest pain, syncope, palpitations, irregular heart rate, peripheral edema RESPIRATORY: cough, shortness of breath, dyspnea with exertion, orthopnea, wheezing Absent: , stridor, hemoptysis GASTROINTESTINAL: Absent: abdominal pain, abdominal distension, nausea, vomiting, diarrhea, constipation, melena, hematochezia GENITOURINARY: Absent: dysuria, frequency, urgency, hesitancy, hematuria, flank pain, genital pain MUSCULOSKELETAL: Absent: myalgia, arthralgia, joint swelling, back pain, neck pain SKIN: itching, rash Absent: pallor HEMATOLOGIC/IMMUNOLOGIC: Absent: easy bleeding, easy bruising, lymphadenopathy, frequent infections ENDOCRINE: Absent: unexplained weight gain, unexplained weight loss, heat intolerance, cold intolerance NEUROLOGIC: Absent: headache, focal weakness or paresthesias, dizziness, unsteady gait, seizure, mental status changes, bladder or bowel incontinence PSYCHIATRIC: Absent: anxiety, depression, suicidal or homicidal ideation, hallucinations. PHYSICAL EXAMINATION Vital Signs - 24 hr 09/22/16 09/22/16 21:35 23:10 Temperature 99.0 F Pulse Rate 108 H Respiratory 28 H Rate Blood Pressure 140/98 O2 Sat by Pulse 96 93 L Oximetry (%) GENERAL: Awake, alert, and fully oriented, in no acute distress. HEAD: Normal with no signs of trauma. EYES: Pupils equal, round and reactive to light, extraocular movements intact, sclera anicteric, conjunctiva clear. No lid lag. EARS, NOSE, THROAT: Ears normal, nares patent, oropharynx clear without exudates. Moist mucous membranes. NECK: Normal range of motion, supple without lymphadenopathy, JVD, or masses. LUNGS: Breath sounds equal, clear to auscultation bilaterally. No wheezes, and no crackles. No accessory muscle use. HEART: Regular rate and rhythm, normal S1 and S2 without murmur, rub or gallop. ABDOMEN: Soft, nontender, not distended, normoactive bowel sounds, no guarding, no rebound, no masses. No hepatomegaly or splenomegaly. MUSCULOSKELETAL: Normal range of motion at all joints. No bony deformities or tenderness. No CVA tenderness. UPPER EXTREMITIES: 2+ pulses, warm, well-perfused. No cyanosis. No clubbing. No peripheral edema. LOWER EXTREMITIES: 2+ pulses, warm, well-perfused. No calf tenderness. No peripheral edema. NEUROLOGICAL: Cranial nerves II-XII intact. Normal speech. Normal gait. PSYCHIATRIC: Cooperative. Good eye contact. Appropriate mood and affect. SKIN: Warm, dry, normal turgor, no rashes or lesions noted, normal capillary refill. pruritic papular rash in back, b/l lower extremities and b/l arms with area of excoriation and abrasion from scratching Laboratory Results - last 24 hr 09/22/16 09/22/16 09/22/16 23:10 23:10 23:10 WBC 11.1 H RBC 4.21 Hgb 11.4 Hct 34.5 MCV 81.9 MCHC 33.1 RDW 14.8 Plt Count 255 MPV 7.6 Neutrophils % 55.0 Lymphocytes % 6.0 L D Monocytes % 9.0 Eosinophils % 27.0 H* Band Neutrophils 2.0 D Platelet Estimate Adequate Platelet Comment No clumping noted INR 1.19 H Sodium 138 Potassium 2.9 L* Chloride 102 Carbon Dioxide 23 D Anion Gap 13 BUN 8 D Creatinine 0.6 Creat Clearance w eGFR > 60 Random Glucose 152 H D Calcium 8.4 L Total Bilirubin 0.4 AST 11 L ALT 16 Alkaline Phosphatase 110 Creatine Kinase 38 Troponin I < 0.02 Total Protein 7.7 Albumin 2.8 L CBC, [facility] 09/22/16 23:10 09/22/16 23:10 CT chest with IV contrast : 09/09/2016: Large mediastinal and bilateral hilar lymph nodes, as described above. Right infrahilar 2.3 cm mass suggestive of an infrahilar lymph node versus lung mass for which further evaluation is recommended. It is causing moderate narrowing of the adjacent right middle lobe bronchus. There is adjacent subsegmental atelectasis and scarring in the dependent portion of the right middle lobe, posteriorly. ASSESSMENT/PLAN: Asthma exacerbation r/o Interstitial Lung disease (sarcoid), Lung Malignancy, Consider [place] Less likely interstitial pneumonia or COPD exacerbation Eosinophils 28% Pt has asthma per history consider differential for eosinophils such as neoplasm, asthma, aspergellosis, parasite infections, [place] Pt has asthma per history Due to the chronicity of symptoms and the finding of CXR and CT chest, have to consider Sarcoidosis with b/l hilar lymphadenopathy with interstitial lung finding Consider ROBLES level CBC with diff in am Duoneb Solumedrol IV q8h Levaquin 750mg IV daily PRN O2 nasal cannula Peak Flow Pulmonary consult Pt may need lymph nodes biopsy and PFTs more likely as outpatient Pruritic papular rash with excoriation and abrasion Pt was previously treated for scabies Distribution of the rash is not typical for scabies Calamine topical prn consider Permethrin topical with Ivermectin PO Consider Benadryl prn for pruritus Hypokalemia Received 60meq KCl in ED Repeat in am Hyperlipidemia Resume Rosuvastatin Calcium 20 mg PO HS FEN Fluid: none Electrolytes: chemistry in am Nutrition: cardiac diet DVT prophylaxis: Heparin SQ [facility] - Emergency Visit Emergency Visit: Yes ED Registration Date: 09/23/16 Care time: The patient presented to the Emergency Department on the above date and was hospitalized for further evaluation of their emergent condition. - New Patient This patient is new to me today: Yes Date on this admission: 09/23/16 - Critical Care Critical Care patient: No
--- NOTE | 2016-09-23 03:20 | PN ---
<Kita Gill - Last Filed: 09/23/16 03:20> Teaching Attending Note Name of Resident: Erasmo Martins ATTENDING PHYSICIAN STATEMENT I saw and evaluated the patient. I reviewed the resident's note and discussed the case with the resident. I agree with the resident's findings and plan as documented. SUBJECTIVE: OBJECTIVE: ASSESSMENT AND PLAN: <Stacey Franco - Last Filed: 09/23/16 04:59> Teaching Attending Note ATTENDING PHYSICIAN STATEMENT I saw and evaluated the patient. I reviewed the resident's note and discussed the case with the resident. I agree with the resident's findings and plan as documented. SUBJECTIVE: 71 yo F with PMhx of Asthma who presents with SOB and chills. The patient reports taking albuterol treatments at home with no relief. She states she recently completed a course of Prednisone however has been noticing worsening dyspnea on exertion over the past few days. The patient also notes a chronic productive cough (yellow sputum) however denies any chest pain, headache or dizziness. Patient also notes a erythematous rash to the lower extremities, buttocks, trunk and reports she has been taking permethrin cream. The patient denies any fevers, nausea, vomit, diarrhea or constipation. PMHx: HTN PSHx: None Social hx: None Allergies: Prednisone OBJECTIVE: Last Vital Signs Temp Pulse Resp BP Pulse Ox 99.0 F 108 H 28 H 140/98 93 L 09/22/16 21:35 09/22/16 21:35 09/22/16 21:35 09/22/16 21:35 09/22/16 23:10 GENERAL: Awake, alert, and fully oriented, in no acute distress. +priutric. + cooperative. HEENT: Atraumatic. PERRLA, EOMI. Moist mucosa. No JVD LUNGS: +Diminished breath sounds in perihilar area. No distress, speaks full sentences. HEART: Regular rate and rhythm, normal S1 and S2, no murmurs, rubs or gallops, peripheral pulses normal and equal bilaterally. ABDOMEN: Soft, nontender, normoactive bowel sounds. No guarding, no rebound. No masses EXTREMITIES: Normal inspection, Normal range of motion, no edema. No clubbing or cyanosis. NEUROLOGICAL: Cranial nerves II through XII grossly intact. Normal speech, normal gait, no focal sensorimotor deficits SKIN: + Erythematous, papular lesions with excoriations on extremities, back and abdomen. +Sparing palms and soles. Warm, Dry, normal turgor. CBCD WBC 11.1 K/mm3 (4.0-10.0) H 09/22/16 23:10 RBC 4.21 M/mm3 (3.60-5.2) 09/22/16 23:10 Hgb 11.4 GM/dL (10.7-15.3) 09/22/16 23:10 Hct 34.5 % (32.4-45.2) 09/22/16 23:10 MCV 81.9 fl (80-96) 09/22/16 23:10 MCHC 33.1 g/dl (32.0-36.0) 09/22/16 23:10 RDW 14.8 % (11.6-15.6) 09/22/16 23:10 Plt Count 255 K/MM3 (134-434) 09/22/16 23:10 MPV 7.6 fl (7.5-11.1) 09/22/16 23:10 CMP Sodium 138 mmol/L (136-145) 09/22/16 23:10 Potassium 2.9 mmol/L (3.5-5.1) L* 09/22/16 23:10 Chloride 102 mmol/L (98-107) 09/22/16 23:10 Carbon Dioxide 23 mmol/L (21-32) D 09/22/16 23:10 Anion Gap 13 (8-16) 09/22/16 23:10 BUN 8 mg/dL (7-18) D 09/22/16 23:10 Creatinine 0.6 mg/dL (0.55-1.02) 09/22/16 23:10 Creat Clearance w eGFR > 60 (>60) 09/22/16 23:10 Calcium 8.4 mg/dL (8.5-10.1) L 09/22/16 23:10 Total Bilirubin 0.4 mg/dL (0.2-1.0) 09/22/16 23:10 AST 11 U/L (15-37) L 09/22/16 23:10 ALT 16 U/L (12-78) 09/22/16 23:10 Alkaline Phosphatase 110 U/L (45-117) 09/22/16 23:10 Total Protein 7.7 g/dl (6.4-8.2) 09/22/16 23:10 Albumin 2.8 g/dl (3.4-5.0) L 09/22/16 23:10 Imaging: Chest X-Ray Impression: Moderate chronic interstitial lung disease with no evidence of acute pathology. Reported By: Eliezer Casanova MD Previous Chest CT on 09/09/2016 Impression: Large mediastinal and bilateral hilar lymph nodes, as described above. Right infrahilar 2.3 cm mass suggestive of an infrahilar lymph node versus lung mass for which further evaluation is recommended. It is causing moderate narrowing of the adjacent right middle lobe bronchus. There is adjacent subsegmental atelectasis and scarring in the dependent portion of the right middle lobe, posteriorly. Reported By: Lay Heck MD 09/09/16 4039 ASSESSMENT AND PLAN: 1. Differential diagnosis: acute respiratory distress secondary to asthma exacerbation vs interstitial lung disease vs sarcoidosis -Pulmonary consult -Refer for PFTs -Peak Flow 2. Rash -Calamine lotion -Dermatology consult Documentation prepared by Stacey Franco, acting as medical office clerk for Kita Gill MD.
[2016-09-23] MEDS ORDERED: IBUPROFEN 600 MG TABLET (FP) PO ONE ×2 (03:30→03:38)
[2016-09-23] MEDS ORDERED: ALBUTEROL SO4 0.083% IH SOL 2.5 MG/3 ML VIAL.NEB. NEB PRN (03:30)
[2016-09-23] MEDS ORDERED: methylPREDNISolone NA SUCC 40 MG/1 ML VIAL ONE (03:39)
[2016-09-23] MEDS: methylPREDNISolone NA SUCC 40 MG/1 ML VIAL IVPB SCH ×4 (03:43→20:49)
[2016-09-23] MEDS ORDERED: CALAMINE 8% TOPICAL LOTION 177 ML BOTTLE TP PRN (04:24)
[2016-09-23] MEDS ORDERED: diphenhydrAMINE HCL 25 MG CAPSULE (FP) PO PRN (07:31)
[2016-09-23 08:23] LABS: MCH 27.7 pg (25.7-33.7); MCHC 33.6 g/dl (32.0-36.0); MEAN CELL VOLUME 82.5 fl (80-96); MEAN PLT VOLUME 7.8 fl (7.5-11.1); PLATELET COUNT 243 K/MM3 (134-434); RDW 14.4 % (11.6-15.6); WHITE BLOOD COUNT 6.3 K/mm3 (4.0-10.0)
[2016-09-23 09:26] LABS: CALCIUM 8.7 mg/dL (8.5-10.1); COCKROFT - GAULT 88.4255; CREATININE 0.6 mg/dL (0.55-1.02); MAGNESIUM 2.4 mg/dL (1.8-2.4)
[2016-09-23] MEDS: HEPARIN NA (PORCINE) 5,000 UNITS/ML 1ML VIAL SQ SCH ×2 (09:32→21:05)
[2016-09-23] MEDS: RANITIDINE HCL 150 MG TABLET (FP) PO SCH (09:33)
[2016-09-23] MEDS: ALBUTEROL SO4 2.5/IPRATROPIUM 0.5 INH SOL 3 ML VIAL.NEB. NEB SCH ×3 (11:35→23:23)
[2016-09-23 11:48] LABS: BASOPHIL 0.7 % (0-2.0); EOSINOPHIL 1.5 % (0-4.5); MCH 27.8 pg (25.7-33.7); MCHC 33.3 g/dl (32.0-36.0); MEAN CELL VOLUME 83.4 fl (80-96); MEAN PLT VOLUME 8.1 fl (7.5-11.1); NEUTROPHILS 82.6 % (42.8-82.8); PLATELET COUNT 245 K/MM3 (134-434); RDW 14.8 % (11.6-15.6); WHITE BLOOD COUNT 6.4 K/mm3 (4.0-10.0)
[2016-09-23] MEDS: ALBUTEROL SO4 6.7 GM HFA INHALER IH PRN (12:33)
[2016-09-23] MEDS: IBUPROFEN 200 MG TABLET PO PRN ×2 (12:36→23:11)
--- NOTE | 2016-09-23 13:44 | CON.PULM ---
Consult Consult Specialty:: PULMONARY Referred by:: PMD - History of Present Illness Chief Complaint: SOB/COUGH/WHEEZE History of Present Illness: Patient is 71-year-old female with history of asthma, brought in by EMS for shortness of breath that started several hours prior to arrival. Patient has had 3=4 ER visits with same complaints in last 5 months. Patient reports worsening dyspnea with minimal exertion for the past several days culminating with difficulty breathing on the day of presentation to the emergency room. Patient reports chronic productive cough with yellow sputum that has not changed significantly. Patient denies fever but complains of intermittent chills. Patient reports that her home albuterol nebulizer therapy did not help her symptoms. Patient has recently completed a prolonged course of prednisone. Patient denies chest pain/nausea/vomiting/diarrhea/lower extremity swelling. Patient does report a severely pruritic erythematous rash to the lower extremities and upper extremities. Patient in the past and been treated with permethrine cream. 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 No: Cancer, O2 Dependent Gastrointestinal: No: Ascites Hepatobiliary: No: Cirrhosis Renal/: No: Renal Failure Reproductive: Yes: Postmenopausal ...: No Heme/Onc: Yes: Anemia Infectious Disease: No: AIDS Psych: No: Addictions Musculoskeletal: No: Bursitis ENT: Yes: Sinusitis Endocrine: No: [place]'s Disease, Diabetes Mellitus Dermatology: Yes: Other (RECENT ? SCABIES) - Alcohol/Substance Use Hx Alcohol Use: No - Smoking History Smoking history: Never smoked Have you smoked in the past 12 months: No - Social History ADL: Independent Home Medications - Allergies Allergies/Adverse Reactions: Allergies Allergy/AdvReac Type Severity Reaction Status Date / Time prednisone AdvReac Verified 09/22/16 21:35 - Home Medications Home Medications: Ambulatory Orders Albuterol Sulfate Inhaler - [Ventolin HFA Inhaler -] 1 puff IN Q6H PRN 09/23/16 Ibuprofen [Advil -] 200 mg PO TID PRN 09/23/16 Mometasone/Formoterol [Dulera 200 Mcg/5 Mcg Inhaler] 2 inh IH BID 09/23/16 Ranitidine [Zantac -] 150 mg PO DAILY 09/23/16 Family Disease History - Family Disease History Family History: Unremarkable Review of Systems Unable to obtain ROS, reason: POOR HISTORIAN - Review of Systems Cardiovascular: reports: Shortness of Breath Respiratory: reports: Cough, SOB on Exertion, Wheezing. denies: Hemoptysis Physical Exam Vital Sings: Vital Signs Temperature 98.1 F 09/23/16 08:52 Pulse Rate 86 09/23/16 08:52 Respiratory Rate 18 09/23/16 08:52 Blood Pressure 130/71 09/23/16 08:52 O2 Sat by Pulse Oximetry (%) 95 09/23/16 09:00 Constitutional: Yes: Anxious Eyes: Yes: EOM Intact HENT: Yes: Normocephalic Neck: Yes: Trachea Midline Cardiovascular: Yes: Regular Rate and Rhythm, S1, S2 Respiratory: Yes: Rales, Rhonchi Gastrointestinal: Yes: Soft Extremities: Yes: WNL Integumentary: Yes: Erythema, Rash Neurological: Yes: Alert Psychiatric: Yes: Alert Labs: CBC, BMP 09/23/16 08:00 09/23/16 07:35 ALL REVIEWED Imaging - Results Chest X-ray: Image Reviewed Cat Scan: Image Reviewed EKG: Report Reviewed Problem List - Problems (1) Acute asthma exacerbation Code(s): J45.901 - UNSPECIFIED ASTHMA WITH (ACUTE) EXACERBATION Qualifiers: Asthma severity: moderate persistent Qualified Code(s): J45.41 - Moderate persistent asthma with (acute) exacerbation (2) Rash Code(s): R21 - RASH AND OTHER NONSPECIFIC SKIN ERUPTION (3) Bronchospasm Code(s): J98.01 - ACUTE BRONCHOSPASM (4) Cough Code(s): R05 - COUGH (5) Lung mass Code(s): R91.8 - OTHER NONSPECIFIC ABNORMAL FINDING OF LUNG FIELD Assessment/Plan ACUTE A/E BRONCHOSPASTIC PROCESS((NEVER DXED WITH B.ASTHMA PER PATIENT) OF CONCERN ARE THE CT FINDINGS OF B/L CHRONIC APPEARING INTERSTITIAL CHANGES AND BILATERAL HILAR/MEDISTINAL ADENOPATHY WITH RIGHT HILAR ?MASS NO FORMAL DIAGNOSTIC PROCEDURE DONE THUS FAR TO DETERMINE ETIOLOGY DIFFERENTIAL DIAGNOSIS INCLUDES SARCOIDOSIS/NEOPLASM/LESS LIKELY LYMPHOMA WOULD TREAT WITH BRONCHODILATORS/STEROIDS/ANTIBIOTICS/O2 SUPPLEMENTATION UNTIL CLINICALLY STABLE BRONCHOSCOPY TO BE CONSIDERED ONCE STABLE WILL ASK T-SURG FOR AN OPINION Suki WICK MD
[2016-09-23] MEDS: CEFTRIAXONE 50 ML IVPB SCH (14:13)
--- NOTE | 2016-09-23 18:55 | PN ---
Teaching Attending Note Name of Resident: Martinez Hair ATTENDING PHYSICIAN STATEMENT I saw and evaluated the patient. I reviewed the resident's note and discussed the case with the resident. I agree with the resident's findings and plan as documented. SUBJECTIVE: Patient complains of cough. OBJECTIVE: Vital Signs Period Temp Pulse Resp BP Sys/Cedillo Pulse Ox Last 24 Hr 97.5 F-99.0 F 83-108 16-28 130-149/63-98 93-96 HEART: S1 S2, tachycardic LUNGS: Bilateral rhonchi ABDOMEN: Soft, non-tender, non-distended, normal BS EXTREMITIES: No edema ASSESSMENT AND PLAN: This is a 71-year-old woman with a history of hyperlipidemia, chronic sinusitis and possible asthma who presented to the ER with cough and shortness of breath. 1. Asthma exacerbation with rash, eosinophilia, mediastinal and bilateral hilar lymphadenopathy, possible right infrahilar mass - Pulmonary consult appreciated - SoluMedrol, Rocephin started - Continue Symbicort, DuoNeb, Albuterol as needed - CT surgery consult - ANCA, ESR, CRP, STEVIE, RF, hepatitis panel ordered 2. Hypokalemia - Improved 3. Hyperlipidemia
--- NOTE | 2016-09-23 19:34 | PN ---
Physical Exam: SUBJECTIVE: Patient stated she's still short of breath and coughing non-stop even thought she got breathing treatment 3 hours ago. Denies chest pain, fever, chills, urinary or bowel symptoms. OBJECTIVE: Vital Signs Period Temp Pulse Resp BP Sys/Cedillo Pulse Ox Last 24 Hr 97.5 F-98.6 F 83-99 16-18 130-149/63-84 94-95 GENERAL: AAO x3, in mild respiratory distress, able to speak in full sentences HEAD: Normal with no signs of trauma. EYES: PERRL, extraocular movements intact, sclera anicteric, conjunctiva clear is. ENT: nares slight swollen, oropharynx clear without exudates, moist mucous membranes. NECK: Trachea midline, full range of motion, supple, no lymphadenopathy LUNGS: CTAB HEART: RRR, S1, S2 without murmur, rub or gallop. ABDOMEN: Soft, nontender, nondistended, normoactive bowel sounds, no guarding, no rebound EXTREMITIES: no edema. SKIN: diffuse rash with healed scars, sparing face, anterior chest and abd, b/l bottom of feet and palms CBCD WBC 6.4 K/mm3 (4.0-10.0) 09/23/16 08:00 RBC 4.07 M/mm3 (3.60-5.2) 09/23/16 08:00 Hgb 11.3 GM/dL (10.7-15.3) 09/23/16 08:00 Hct 34.0 % (32.4-45.2) 09/23/16 08:00 MCV 83.4 fl (80-96) 09/23/16 08:00 MCHC 33.3 g/dl (32.0-36.0) 09/23/16 08:00 RDW 14.8 % (11.6-15.6) 09/23/16 08:00 Plt Count 245 K/MM3 (134-434) 09/23/16 08:00 MPV 8.1 fl (7.5-11.1) 09/23/16 08:00 CMP Sodium 138 mmol/L (136-145) 09/23/16 07:35 Potassium 4.1 mmol/L (3.5-5.1) D 09/23/16 07:35 Chloride 104 mmol/L (98-107) 09/23/16 07:35 Carbon Dioxide 23 mmol/L (21-32) 09/23/16 07:35 Anion Gap 11 (8-16) 09/23/16 07:35 BUN 9 mg/dL (7-18) 09/23/16 07:35 Creatinine 0.6 mg/dL (0.55-1.02) 09/23/16 07:35 Creat Clearance w eGFR > 60 (>60) 09/22/16 23:10 Calcium 8.7 mg/dL (8.5-10.1) 09/23/16 07:35 Total Bilirubin 0.4 mg/dL (0.2-1.0) 09/22/16 23:10 AST 11 U/L (15-37) L 09/22/16 23:10 ALT 16 U/L (12-78) 09/22/16 23:10 Alkaline Phosphatase 110 U/L (45-117) 09/22/16 23:10 Total Protein 7.7 g/dl (6.4-8.2) 09/22/16 23:10 Albumin 2.8 g/dl (3.4-5.0) L 09/22/16 23:10 Active Medications Generic Name Dose Route Start Last Admin Trade Name Freq PRN Reason Stop Dose Admin Albuterol Sulfate 1 amp 09/23/16 03:30 Ventolin 0.083% Nebulizer Soln - NEB Q4H PRN SHORT OF BREATH/WHEEZING Albuterol Sulfate 1 puff 09/23/16 11:25 09/23/16 12:33 Ventolin Hfa Inhaler - IH 1 puff Q6H PRN Administration SHORT OF BREATH/WHEEZING Albuterol/Ipratropium 1 amp 09/23/16 06:00 09/23/16 17:49 Duoneb - NEB 1 amp QIDR JESSICA Administration Budesonide/Formoterol Fumarate 1 puff 09/23/16 10:00 Symbicort 160/4.5mcg - IH BID JESSICA Calamine 1 applic 09/23/16 04:24 09/23/16 14:20 Calamine 8% Topical Lotion - TP 1 applic QID PRN Administration FOR ITCHING Diphenhydramine HCl 25 mg 09/23/16 07:31 Benadryl - PO Q6H PRN FOR ITCHING Heparin Sodium (Porcine) 5,000 unit 09/23/16 10:00 09/23/16 09:32 Heparin - SQ 5,000 unit BID JESSICA Administration Ceftriaxone Sodium 50 mls @ 100 mls/hr 09/23/16 14:30 09/23/16 14:13 Rocephin 1gm Ivpb (Pre-Docked) IVPB 100 mls/hr DAILY JESSICA Administration Ibuprofen 200 mg 09/23/16 11:25 09/23/16 12:36 Advil - PO 200 mg TID PRN Administration PAIN Methylprednisolone Sodium Succinate 40 mg 09/23/16 03:45 09/23/16 14:13 Solu-Medrol - IVPB 40 mg Q6H-IV JESSICA Administration Non-Formulary Medication 2 inh 09/23/16 22:00 Mometasone/Formoterol [Dulera 200 Mcg/5 Mcg Inhaler] IH BID JESSICA Ranitidine HCl 150 mg 09/23/16 10:00 09/23/16 09:33 Zantac - PO 150 mg DAILY JESSICA Administration IMAGING CXR on 09/23: Chronic interstitial lung disease without acute pathology CT chest with IV contrast on 09/09/2016: Large mediastinal and bilateral hilar lymph nodes, as described above. Right infrahilar 2.3 cm mass suggestive of an infrahilar lymph node versus lung mass for which further evaluation is recommended. It is causing moderate narrowing of the adjacent right middle lobe bronchus. There is adjacent subsegmental atelectasis and scarring in the dependent portion of the right middle lobe, posteriorly. ASSESSMENT/PLAN: 71 yo F with h/o upper extremity neuropathy, rheumatoid arthritis, chronic sinusitis, chronic bronchitis, deviated nasal septum, and unconfirmed diagnosis of asthma admitted to med-surg for acute on chronic dyspnea. Most likely 2/2 a combination of above stated chronic upper respiratory condition, but cannot r/o sarcoidosis because of CT finding of bilateral hilar lymph nodes; cannot r/o churg michoacano because of lab finding of eosinophila and diffuse rashes. Dyspnea, exertion and non-exertion - Likely 2/2 Interstitial lung disease + deviated septum + chronic sinusitis * consistent with finding on CXR and history+physical * cont. solu-medrol 40mg IVPB Q6H - Less likely 2/2 asthma exacerbation * no official dx in the past * somewhat refractory to duoneb * cont. cont. solu-medrol * supplemental O2 * cont. symbicort and ventolin * duoneb PRN * start rocephin 1g IVPB daily (day 1) * PFT as outpatient - Cannot r/o pulmonary sarcoidosis * consistent with finding of b/l hilar lymph nodes and diffuse rash * ROBLES level as outpatient * bronchoscopy once stable - Cannot r/o Eosinophilic granulomatosis with polyangiitis aka Churg [place] * consistent with finding of weight loss, neuropathy, chronic sinusitis, esosinophilia and diffuse rash * f/u P-ANCA, CRP, ESR, CBC, rheumatoid factor, STEVIE, hepatitis panel * rheumatology consult FEN - IVF not indicated - Hypokalemia resolved, Cont. to monitor - Regular diet Prophylaxis - DVT: Heparin SQ - GI: on zantac Disposition - Cont. to monitor on med-surg Code status - Full code Visit type - Emergency Visit Emergency Visit: Yes ED Registration Date: 09/23/16 Care time: The patient presented to the Emergency Department on the above date and was hospitalized for further evaluation of their emergent condition. - New Patient This patient is new to me today: Yes Date on this admission: 09/23/16 - Critical Care Critical Care patient: No
[2016-09-23] MEDS ORDERED: PT OWN MED DRAWER 7, Y5N ONE (20:50)
[2016-09-23] MEDS: PATIENT'S OWN MEDICATION (NON-FORMULARY) (Mometasone/Formoterol [Dulera 200 Mcg/5 Mcg Inha IH SCH (21:02)
[2016-09-23] MEDS: guaiFENesin 200 MG/10 ML 10 ML UNIT-DOSE CUPS PO PRN (21:05)
[2016-09-24] MEDS: guaiFENesin 200 MG/10 ML 10 ML UNIT-DOSE CUPS PO PRN ×4 (02:03→21:50)
[2016-09-24] MEDS: methylPREDNISolone NA SUCC 40 MG/1 ML VIAL IVPB SCH ×4 (02:03→21:51)
[2016-09-24] MEDS ORDERED: PT OWN MED DRAWER 7, Y5N ONE ×2 (02:58→14:51)
[2016-09-24] MEDS: ALBUTEROL SO4 2.5/IPRATROPIUM 0.5 INH SOL 3 ML VIAL.NEB. NEB SCH ×3 (06:11→18:06)
--- NOTE | 2016-09-24 06:38 | CONSULT ---
Consult - text type - Consultation Consultation Note: Thoracic Surgery Consulation: Consulted by Dr. Florence re: hilar adenopathy/ILD for possible biopsy. Pt seen/examined. Briefly 71F with cough and 10lb weight loss over 2 weeks. Imaging shows bilateral hilar adenopathy and mediastinal thicking. Diff dx includes malignancy, infectious, and inflammatory including fibrosing mediastinitis. She has an appt with a corporate ethics officer on Monday. She would benefit from a PET scan to target areas for biopsy. Likely would make diagnosis with EBUS. Would like to follow as outpatient and organize this. I have given her my office information with phone number [phone]. I have spent 40 minutes with greater than 50% involved in counseling of the patient and coordination of care with Dr. Roblero, including obtaining a history, physical, and reviewing images.
[2016-09-24 07:58] LABS: BASOPHIL 0.5 % (0-2.0); EOSINOPHIL 0.2 % (0-4.5); MCH 27.5 pg (25.7-33.7); MCHC 32.9 g/dl (32.0-36.0); MEAN CELL VOLUME 83.5 fl (80-96); MEAN PLT VOLUME 7.8 fl (7.5-11.1); PLATELET COUNT 282 K/MM3 (134-434); RDW 14.8 % (11.6-15.6); WHITE BLOOD COUNT 11.4 K/mm3 (4.0-10.0)
[2016-09-24 08:18] LABS: ANION GAP 13 (8-16); CALCIUM 9.1 mg/dL (8.5-10.1); CO2 25 mmol/L (21-32); GLUCOSE,RANDOM 160 mg/dL (74-106)
[2016-09-24 08:23] LABS: C-REACTIVE PROTEIN 1.9 MG/DL (0.00-0.3); CREATININE 0.8 mg/dL (0.55-1.02)
[2016-09-24] MEDS: RANITIDINE HCL 150 MG TABLET (FP) PO SCH (10:07)
[2016-09-24] MEDS: CEFTRIAXONE 50 ML IVPB SCH (10:08)
[2016-09-24] MEDS: HEPARIN NA (PORCINE) 5,000 UNITS/ML 1ML VIAL SQ SCH ×2 (10:08→21:50)
--- NOTE | 2016-09-24 11:51 | PN ---
Physical Exam: SUBJECTIVE: Patient seen and examined. She complains of persistent cough. She also reports having diarrhea. OBJECTIVE: Vital Signs Period Temp Pulse Resp BP Sys/Cedillo Pulse Ox Last 24 Hr 97.6 F-98.3 F 74-99 18-18 128-149/8-83 95 GENERAL: The patient is awake, alert, and fully oriented, in no acute distress. LUNGS: Few rhonchi. HEART: Regular rate and rhythm, S1, S2 without murmur, rub or gallop. ABDOMEN: Soft, nontender, nondistended, normoactive bowel sounds, no guarding, no rebound, no hepatosplenomegaly, no masses. EXTREMITIES: 2+ pulses, warm, well-perfused, no edema. Laboratory Results - last 24 hr 09/23/16 09/24/16 09/24/16 08:00 06:30 06:30 WBC 6.4 RBC 4.07 Hgb 11.3 Hct 34.0 MCV 83.4 MCHC 33.3 RDW 14.8 Plt Count 245 MPV 8.1 Neutrophils % 82.6 D Lymphocytes % 12.5 D Monocytes % 2.7 L Eosinophils % 1.5 D Basophils % 0.7 ESR 120 H Sodium 144 Potassium 4.4 Chloride 106 Carbon Dioxide 25 Anion Gap 13 BUN 21 H D Creatinine 0.8 D Random Glucose 160 H Calcium 9.1 C-Reactive Protein 1.9 H Rheumatoid Factor < 10.0 09/24/16 06:30 WBC 11.4 H D RBC 4.01 Hgb 11.0 Hct 33.5 MCV 83.5 MCHC 32.9 RDW 14.8 Plt Count 282 MPV 7.8 Neutrophils % 75.0 Lymphocytes % 17.2 D Monocytes % 7.1 D Eosinophils % 0.2 D Basophils % 0.5 ESR Sodium Potassium Chloride Carbon Dioxide Anion Gap BUN Creatinine Random Glucose Calcium C-Reactive Protein Rheumatoid Factor Active Medications Generic Name Dose Route Start Last Admin Trade Name Freq PRN Reason Stop Dose Admin Albuterol Sulfate 1 amp 09/23/16 03:30 Ventolin 0.083% Nebulizer Soln - NEB Q4H PRN SHORT OF BREATH/WHEEZING Albuterol Sulfate 1 puff 09/23/16 11:25 09/23/16 12:33 Ventolin Hfa Inhaler - IH 1 puff Q6H PRN Administration SHORT OF BREATH/WHEEZING Albuterol/Ipratropium 1 amp 09/23/16 06:00 09/24/16 06:11 Duoneb - NEB 1 amp QIDR JESSICA Administration Budesonide/Formoterol Fumarate 1 puff 09/23/16 10:00 Symbicort 160/4.5mcg - IH BID JESSICA Calamine 1 applic 09/23/16 04:24 09/23/16 14:20 Calamine 8% Topical Lotion - TP 1 applic QID PRN Administration FOR ITCHING Diphenhydramine HCl 25 mg 09/23/16 07:31 Benadryl - PO Q6H PRN FOR ITCHING Guaifenesin 10 ml 09/23/16 20:48 09/24/16 06:55 Robitussin - PO 10 ml Q4H PRN Administration COUGH Heparin Sodium (Porcine) 5,000 unit 09/23/16 10:00 09/24/16 10:08 Heparin - SQ 5,000 unit BID JESSICA Administration Ceftriaxone Sodium 50 mls @ 100 mls/hr 09/23/16 14:30 09/24/16 10:08 Rocephin 1gm Ivpb (Pre-Docked) IVPB 100 mls/hr DAILY JESSICA Administration Ibuprofen 200 mg 09/23/16 11:25 09/23/16 23:11 Advil - PO 200 mg TID PRN Administration PAIN Methylprednisolone Sodium Succinate 40 mg 09/23/16 03:45 09/24/16 09:49 Solu-Medrol - IVPB 40 mg Q6H-IV JESSICA Administration Non-Formulary Medication 2 inh 09/23/16 22:00 09/23/16 21:02 Mometasone/Formoterol [Dulera 200 Mcg/5 Mcg Inhaler] IH Not Given BID JESSICA Ranitidine HCl 150 mg 09/23/16 10:00 09/24/16 10:07 Zantac - PO 150 mg DAILY JESSICA Administration ASSESSMENT/PLAN: This is a 71-year-old woman with a history of hyperlipidemia, chronic sinusitis and possible asthma who presented to the ER with cough and shortness of breath. 1. Asthma exacerbation with rash, eosinophilia, mediastinal and bilateral hilar lymphadenopathy, possible right infrahilar mass - Continue SoluMedrol, Rocephin, Symbicort, DuoNeb, Albuterol as needed - CT surgery consult appreciated - plan for outpatient PET and EBUS - RF negative - ANCA, STEVIE pending - ESR 120, CRP 1.9 2. Leukocytosis - Steroid-induced 3. Hypokalemia - Improved 4. Hyperlipidemia Visit type - Emergency Visit Emergency Visit: Yes ED Registration Date: 09/23/16 Care time: The patient presented to the Emergency Department on the above date and was hospitalized for further evaluation of their emergent condition. - New Patient This patient is new to me today: No - Critical Care Critical Care patient: No - Discharge Referral Referred to [facility] No
--- NOTE | 2016-09-24 13:31 | PN ---
Progress Note (short form) - Note Progress Note: Feels a little better than yesterday. Films reviewed with CTS yesterday : most appropriate procedure -> EBUS. Intake & Output 09/21/16 09/22/16 09/23/16 09/24/16 23:59 23:59 23:59 23:59 Intake Total 490 550 Balance 490 550 Weight 143 lb 143 lb 9.6 oz Last Vital Signs Temp Pulse Resp BP Pulse Ox 98.1 F 78 20 132/69 95 09/24/16 10:00 09/24/16 10:00 09/24/16 10:00 09/24/16 10:00 09/23/16 21:00 Active Medications Albuterol Sulfate (Ventolin 0.083% Nebulizer Soln -) 1 amp NEB Q4H PRN PRN Reason: SHORT OF BREATH/WHEEZING Albuterol Sulfate (Ventolin Hfa Inhaler -) 1 puff IH Q6H PRN PRN Reason: SHORT OF BREATH/WHEEZING Last Admin: 09/23/16 12:33 Dose: 1 puff Albuterol/Ipratropium (Duoneb -) 1 amp NEB QIDR JESSICA Last Admin: 09/24/16 12:45 Dose: 1 amp Budesonide/Formoterol Fumarate (Symbicort 160/4.5mcg -) 1 puff IH BID JESSICA Calamine (Calamine 8% Topical Lotion -) 1 applic TP QID PRN PRN Reason: FOR ITCHING Last Admin: 09/23/16 14:20 Dose: 1 applic Diphenhydramine HCl (Benadryl -) 25 mg PO Q6H PRN PRN Reason: FOR ITCHING Guaifenesin (Robitussin -) 10 ml PO Q4H PRN PRN Reason: COUGH Last Admin: 09/24/16 06:55 Dose: 10 ml Heparin Sodium (Porcine) (Heparin -) 5,000 unit SQ BID JESSICA Last Admin: 09/24/16 10:08 Dose: 5,000 unit Ceftriaxone Sodium (Rocephin 1gm Ivpb (Pre-Docked)) 50 mls @ 100 mls/hr IVPB DAILY [facility] Last Admin: 09/24/16 10:08 Dose: 100 mls/hr Ibuprofen (Advil -) 200 mg PO TID PRN PRN Reason: PAIN Last Admin: 09/23/16 23:11 Dose: 200 mg Methylprednisolone Sodium Succinate (Solu-Medrol -) 40 mg IVPB Q6H-IV [facility] Last Admin: 09/24/16 09:49 Dose: 40 mg Non-Formulary Medication (Mometasone/Formoterol [Dulera 200 Mcg/5 Mcg Inhaler]) 2 inh IH BID [facility] Last Admin: 09/23/16 21:02 Dose: Not Given Ranitidine HCl (Zantac -) 150 mg PO DAILY [facility] Last Admin: 09/24/16 10:07 Dose: 150 mg Constitutional: Yes: NAD Eyes: Yes: EOM Intact HENT: Yes: Normocephalic Neck: Yes: Trachea Midline Cardiovascular: Yes: Regular Rate and Rhythm, S1, S2 Respiratory: Yes: Scattered Rhonchi Gastrointestinal: Yes: Soft Extremities: Yes: WNL Integumentary: Yes: Erythema, Rash Neurological: Yes: Alert Psychiatric: Yes: Alert Labs: Laboratory Results - last 24 hr 09/24/16 09/24/16 09/24/16 06:30 06:30 06:30 WBC 11.4 H D RBC 4.01 Hgb 11.0 Hct 33.5 MCV 83.5 MCHC 32.9 RDW 14.8 Plt Count 282 MPV 7.8 Neutrophils % 75.0 Lymphocytes % 17.2 D Monocytes % 7.1 D Eosinophils % 0.2 D Basophils % 0.5 ESR 120 H Sodium 144 Potassium 4.4 Chloride 106 Carbon Dioxide 25 Anion Gap 13 BUN 21 H D Creatinine 0.8 D Random Glucose 160 H Calcium 9.1 C-Reactive Protein 1.9 H Rheumatoid Factor < 10.0 Problem List - Problems (1) Acute asthma exacerbation Code(s): J45.901 - UNSPECIFIED ASTHMA WITH (ACUTE) EXACERBATION Qualifiers: Asthma severity: moderate persistent Qualified Code(s): J45.41 - Moderate persistent asthma with (acute) exacerbation (2) Rash Code(s): R21 - RASH AND OTHER NONSPECIFIC SKIN ERUPTION (3) Bronchospasm Code(s): J98.01 - ACUTE BRONCHOSPASM (4) Cough Code(s): R05 - COUGH (5) Lung mass Code(s): R91.8 - OTHER NONSPECIFIC ABNORMAL FINDING OF LUNG FIELD Assessment/Plan Steroids BD TX Patient should use either Dulera or Symbicort not both O2 as needed Reviewed images with CTS -> Feel that EBUS most appropriate to establish a tissue diagnosis. Dr Roblero
[2016-09-24] MEDS: IBUPROFEN 200 MG TABLET PO PRN ×2 (14:52→22:02)
--- NOTE | 2016-09-24 22:57 | CONSULT ---
Consult Consult Specialty:: Rheumatology - History of Present Illness History of Present Illness: 71-year-old female admitted with shortness of breath and cough. HPI. Until one year ago the patient was asymptomatic On July 2015 she developed cough, chest tightness and mild wheezing. The symptoms improved only partially with medications and sine May of this year she has had multiple flare-ups of shortness of breath and cough resulting in frequent visits to the ER. She also developed nasal congestion and pressure in face and 3 days befor admission she developed pruritic skin rash characterized by papules mainly in extremities. The patient has multiple courses of antibiotics and Prednisone resulting in transient improvement. The patient denies joint pain, abdominal pain or fever. On admission she was found to have eosinophilia (CBC: WBC 11.1, Hgb 11.4, HCT 34.5 and platelets 255. Eosinophils 27%), ESR 120. Creatinine was 0.6 and liver function tests were normal. (On previous CBC on 09/09/16 and 07/23/16 she also had eosinophilia). A CT of the chest (09/09/16) was reported with large mediastinal mass and bilateral hilar lymph nodes,. Right intrahilar 2.3 cm mass suggestive of lymphadenopathy vs. lung mass, causin moderate narrowing of adjacent right middle lobe bronchus. - History Source History Provided By: Patient, Medical Record Limitations to Obtaining History: No Limitations - Past Medical History [employer]: No: Alzheimer's Cardio/Vascular: Yes: Hyperlipdemia. No: AFIB Pulmonary: Yes: Asthma, Pneumonia. No: Cancer, O2 Dependent Gastrointestinal: No: Ascites Hepatobiliary: No: Cirrhosis Renal/: No: Renal Failure ...: No Infectious Disease: No: AIDS Psych: No: Addictions Musculoskeletal: No: Bursitis ENT: Yes: Sinusitis Endocrine: No: Bossier's Disease, Diabetes Mellitus Dermatology: Yes: Other (RECENT ? SCABIES) - Alcohol/Substance Use Hx Alcohol Use: No - Smoking History Smoking history: Never smoked Have you smoked in the past 12 months: No - Social History ADL: Independent Home Medications - Allergies Allergies/Adverse Reactions: Allergies Allergy/AdvReac Type Severity Reaction Status Date / Time prednisone AdvReac Verified 09/22/16 21:35 - Home Medications Home Medications: Ambulatory Orders Albuterol Sulfate Inhaler - [Ventolin HFA Inhaler -] 1 puff IN Q6H PRN 09/23/16 Ibuprofen [Advil -] 200 mg PO TID PRN 09/23/16 Mometasone/Formoterol [Dulera 200 Mcg/5 Mcg Inhaler] 2 inh IH BID 09/23/16 Ranitidine [Zantac -] 150 mg PO DAILY 09/23/16 Review of Systems - Review of Systems Constitutional: reports: Malaise Eyes: reports: No Symptoms HENT: reports: Nasal Congestion Neck: reports: No Symptoms Cardiovascular: reports: No Symptoms Respiratory: reports: SOB Gastrointestinal: reports: No Symptoms Integumentary: reports: Rash Physical Exam Vital Signs: Vital Signs Temperature 98.8 F 09/24/16 14:07 Pulse Rate 87 09/24/16 14:07 Respiratory Rate 20 09/24/16 10:00 Blood Pressure 147/69 09/24/16 14:07 O2 Sat by Pulse Oximetry (%) 96 09/24/16 09:00 Constitutional: Yes: Moderate Distress Eyes: Yes: WNL HENT: Yes: WNL Neck: Yes: WNL Cardiovascular: Yes: WNL Respiratory: Yes: WNL Gastrointestinal: Yes: WNL Musculoskeletal: Yes: Other (No active joints) Integumentary: Yes: Other (papules in extremities.) Labs: CBC, BMP 09/24/16 06:30 09/24/16 06:30 Laboratory Tests 09/22/16 09/22/16 09/23/16 23:10 23:10 08:00 Eosinophils % 27.0 H* 1.5 D ESR Total Bilirubin 0.4 AST 11 L ALT 16 Alkaline Phosphatase 110 Creatine Kinase 38 Troponin I < 0.02 Total Protein 7.7 Albumin 2.8 L 09/24/16 09/24/16 06:30 06:30 Eosinophils % 0.2 D ESR 120 H Total Bilirubin AST ALT Alkaline Phosphatase Creatine Kinase Troponin I Total Protein Albumin Problem List - Problems (1) Churg-Michoacano syndrome Assessment/Plan: Rule out eosinophilic granulomatosis and angiitis (Chruig Michoacano). The patient has a 1 year history of progressive chronic cough, shortness of breath, nasal congestion and recently skin rash associated with eosinophilia and lung nodule vs mass. Rule out sarcoidosis, lymphoma or other vasculitis. The patient is scheduled for transbronchial biopsy and ANCA with myeloperoxidase and proteinase -3 pending. Plan: I requested urinalysis, complement. I suggest: Dermatology consult- to consider biopsy. The patient is reluctant to take Prednisone as she had recurrence of the disease when it was discontinued in the past, apparently she did not have other adverse reaction and she agrees to take the medication if necessary. Consider starting Prednisone 60 mg /d.
[2016-09-25 02:08] LABS: URINE APPEARANCE CLEAR; URINE BILIRUBIN NEGATIVE (NEGATIVE); URINE COLOR LTYELLOW; URINE GLUCOSE (UA) NEGATIVE (NEGATIVE); URINE KETONE NEGATIVE (NEGATIVE); URINE NITRITE NEGATIVE (NEGATIVE); URINE PROTEIN NEGATIVE (NEGATIVE); URINE UROBILINOGEN NEGATIVE E.U./dl (0.2-1.0)
[2016-09-25 02:13] LABS: URINE BLOOD 2+ (NEGATIVE); URINE LEUK ESTERASE 2+ (NEGATIVE)
[2016-09-25] MEDS: methylPREDNISolone NA SUCC 40 MG/1 ML VIAL IVPB SCH ×3 (02:13→21:49)
[2016-09-25 02:16] LABS: URINE BACTERIA RARE /hpf (NONE SEEN); URINE MUCUS RARE; URINE RBC 22 /hpf (0-3); URINE WBC 7 /hpf (3-5)
[2016-09-25] MEDS: guaiFENesin 200 MG/10 ML 10 ML UNIT-DOSE CUPS PO PRN ×3 (04:51→21:49)
[2016-09-25] MEDS: ALBUTEROL SO4 2.5/IPRATROPIUM 0.5 INH SOL 3 ML VIAL.NEB. NEB SCH ×5 (06:45→23:39)
[2016-09-25 07:17] LABS: BASOPHIL 0.4 % (0-2.0); MCH 27.4 pg (25.7-33.7); MCHC 33.3 g/dl (32.0-36.0); MEAN CELL VOLUME 82.4 fl (80-96); MEAN PLT VOLUME 7.8 fl (7.5-11.1); NEUTROPHILS 79.3 % (42.8-82.8); PLATELET COUNT 289 K/MM3 (134-434); RDW 15.1 % (11.6-15.6); WHITE BLOOD COUNT 14.8 K/mm3 (4.0-10.0)
[2016-09-25 07:46] LABS: CALCIUM 8.6 mg/dL (8.5-10.1); COCKROFT - GAULT 75.7945; CREATININE 0.7 mg/dL (0.55-1.02)
[2016-09-25] MEDS: HEPARIN NA (PORCINE) 5,000 UNITS/ML 1ML VIAL SQ SCH ×2 (09:07→21:50)
[2016-09-25] MEDS: CEFTRIAXONE 50 ML IVPB SCH (09:07)
[2016-09-25] MEDS: RANITIDINE HCL 150 MG TABLET (FP) PO SCH (09:07)
[2016-09-25] MEDS ORDERED: PT OWN MED DRAWER 7, Y5N ONE ×2 (09:15→17:27)
[2016-09-25] MEDS: IBUPROFEN 200 MG TABLET PO PRN ×2 (09:16→17:28)
[2016-09-25] MEDS ORDERED: LOPERAMIDE HCL 2 MG CAPSULE PO PRN (10:36)
[2016-09-25] MEDS ORDERED: PHENYLEPHRINE 0.25%/STARCH 1 EACH SUPP.RECT RC ONE (11:45)
--- NOTE | 2016-09-25 13:25 | PN ---
Progress Note (short form) - Note Progress Note: Feels a little better than yesterday except for 10 episodes of soft/loose stools. Still with intermittent "coughing fits" Intake & Output 09/22/16 09/23/16 09/24/16 09/25/16 23:59 23:59 23:59 23:59 Intake Total 490 1600 600 Output Total 400 Balance 490 1600 200 Weight 143 lb 143 lb 9.6 oz Last Vital Signs Temp Pulse Resp BP Pulse Ox 98.7 F 86 20 148/66 97 09/25/16 10:00 09/25/16 10:00 09/25/16 10:00 09/25/16 10:00 09/24/16 21:00 Active Medications Albuterol Sulfate (Ventolin 0.083% Nebulizer Soln -) 1 amp NEB Q4H PRN PRN Reason: SHORT OF BREATH/WHEEZING Albuterol Sulfate (Ventolin Hfa Inhaler -) 1 puff IH Q6H PRN PRN Reason: SHORT OF BREATH/WHEEZING Last Admin: 09/23/16 12:33 Dose: 1 puff Albuterol/Ipratropium (Duoneb -) 1 amp NEB QIDR JESSICA Last Admin: 09/25/16 06:45 Dose: 1 amp Budesonide/Formoterol Fumarate (Symbicort 160/4.5mcg -) 1 puff IH BID JESSICA Calamine (Calamine 8% Topical Lotion -) 1 applic TP QID PRN PRN Reason: FOR ITCHING Last Admin: 09/23/16 14:20 Dose: 1 applic Diphenhydramine HCl (Benadryl -) 25 mg PO Q6H PRN PRN Reason: FOR ITCHING Last Admin: 09/24/16 21:50 Dose: 25 mg Guaifenesin (Robitussin -) 10 ml PO Q4H PRN PRN Reason: COUGH Last Admin: 09/25/16 09:07 Dose: 10 ml Heparin Sodium (Porcine) (Heparin -) 5,000 unit SQ BID [facility] Last Admin: 09/25/16 09:07 Dose: Not Given Ceftriaxone Sodium (Rocephin 1gm Ivpb (Pre-Docked)) 50 mls @ 100 mls/hr IVPB DAILY [facility] Last Admin: 09/25/16 09:07 Dose: 100 mls/hr Ibuprofen (Advil -) 200 mg PO TID PRN PRN Reason: PAIN Last Admin: 09/25/16 09:16 Dose: 200 mg Loperamide HCl (Imodium -) 2 mg PO Q8H PRN PRN Reason: DIARRHEA Last Admin: 09/25/16 11:41 Dose: 2 mg Methylprednisolone Sodium Succinate (Solu-Medrol -) 40 mg IVPB Q6H-IV JESSICA Last Admin: 09/25/16 09:07 Dose: 40 mg Non-Formulary Medication (Mometasone/Formoterol [Dulera 200 Mcg/5 Mcg Inhaler]) 2 inh IH BID [facility] Last Admin: 09/23/16 21:02 Dose: Not Given Ranitidine HCl (Zantac -) 150 mg PO DAILY [facility] Last Admin: 09/25/16 09:07 Dose: 150 mg Constitutional: Yes: NAD Eyes: Yes: EOM Intact HENT: Yes: Normocephalic Neck: Yes: Trachea Midline Cardiovascular: Yes: Regular Rate and Rhythm, S1, S2 Respiratory: Yes: Scattered Rhonchi Gastrointestinal: Yes: Soft Extremities: Yes: WNL Integumentary: Yes: Erythema, Rash Neurological: Yes: Alert Psychiatric: Yes: Alert Labs: Laboratory Results - last 24 hr 09/25/16 09/25/16 09/25/16 01:00 06:15 06:15 WBC 14.8 H RBC 3.80 Hgb 10.4 L Hct 31.3 L MCV 82.4 MCHC 33.3 RDW 15.1 Plt Count 289 MPV 7.8 Neutrophils % 79.3 Lymphocytes % 14.6 Monocytes % 5.7 Eosinophils % 0.0 D Basophils % 0.4 Sodium 142 Potassium 4.0 Chloride 106 Carbon Dioxide 24 Anion Gap 12 BUN 25 H Creatinine 0.7 Random Glucose 133 H Calcium 8.6 Urine Color Ltyellow Urine Appearance Clear Urine pH 5.0 Urine Protein Negative Urine Glucose (UA) Negative Urine Ketones Negative Urine Blood 2+ H Urine Nitrite Negative Urine Bilirubin Negative Urine Urobilinogen Negative Ur Leukocyte Esterase 2+ H Urine RBC 22 Urine WBC 7 Ur Epithelial Cells Rare Urine Bacteria Rare Urine Mucus Rare Problem List - Problems (1) Acute asthma exacerbation Code(s): J45.901 - UNSPECIFIED ASTHMA WITH (ACUTE) EXACERBATION Qualifiers: Asthma severity: moderate persistent Qualified Code(s): J45.41 - Moderate persistent asthma with (acute) exacerbation (2) Rash Code(s): R21 - RASH AND OTHER NONSPECIFIC SKIN ERUPTION (3) Bronchospasm Code(s): J98.01 - ACUTE BRONCHOSPASM (4) Cough Code(s): R05 - COUGH (5) Lung mass Code(s): R91.8 - OTHER NONSPECIFIC ABNORMAL FINDING OF LUNG FIELD Assessment/Plan Agree with Prednisone 60 OD, but now that she has GI symptoms will adjust to IV Medrol BD TX Dulera or Symbicort not both O2 as needed Reviewed images with CTS -> Feel that EBUS most appropriate to establish a tissue diagnosis. Dr Roblero
--- NOTE | 2016-09-25 15:31 | PN ---
Physical Exam: SUBJECTIVE: Patient seen and examined. She complains of persistent cough, diarrhea and hemorrhoidal pain. OBJECTIVE: Vital Signs Period Temp Pulse Resp BP Sys/Cedillo Pulse Ox Last 24 Hr 97.5 F-98.7 F 76-88 20-20 140-149/66-95 96-97 GENERAL: The patient is awake, alert, and fully oriented, in no acute distress. LUNGS: Few rhonchi. HEART: Regular rate and rhythm, S1, S2 without murmur, rub or gallop. ABDOMEN: Soft, nontender, nondistended, normoactive bowel sounds, no guarding, no rebound, no hepatosplenomegaly, no masses. EXTREMITIES: 2+ pulses, warm, well-perfused, no edema. Laboratory Results - last 24 hr 09/25/16 09/25/16 09/25/16 01:00 06:15 06:15 WBC 14.8 H RBC 3.80 Hgb 10.4 L Hct 31.3 L MCV 82.4 MCHC 33.3 RDW 15.1 Plt Count 289 MPV 7.8 Neutrophils % 79.3 Lymphocytes % 14.6 Monocytes % 5.7 Eosinophils % 0.0 D Basophils % 0.4 Sodium 142 Potassium 4.0 Chloride 106 Carbon Dioxide 24 Anion Gap 12 BUN 25 H Creatinine 0.7 Random Glucose 133 H Calcium 8.6 Urine Color Ltyellow Urine Appearance Clear Urine pH 5.0 Ur Specific [place] 1.020 Urine Protein Negative Urine Glucose (UA) Negative Urine Ketones Negative Urine Blood 2+ H Urine Nitrite Negative Urine Bilirubin Negative Urine Urobilinogen Negative Ur Leukocyte Esterase 2+ H Urine RBC 22 Urine WBC 7 Ur Epithelial Cells Rare Urine Bacteria Rare Urine Mucus Rare Active Medications Generic Name Dose Route Start Last Admin Trade Name Freq PRN Reason Stop Dose Admin Albuterol Sulfate 1 amp 09/23/16 03:30 Ventolin 0.083% Nebulizer Soln - NEB Q4H PRN SHORT OF BREATH/WHEEZING Albuterol Sulfate 1 puff 09/23/16 11:25 09/23/16 12:33 Ventolin Hfa Inhaler - IH 1 puff Q6H PRN Administration SHORT OF BREATH/WHEEZING Albuterol/Ipratropium 1 amp 09/23/16 06:00 09/25/16 06:45 Duoneb - NEB 1 amp QIDR JESSICA Administration Budesonide/Formoterol Fumarate 1 puff 09/23/16 10:00 Symbicort 160/4.5mcg - IH BID JESSICA Calamine 1 applic 09/23/16 04:24 09/23/16 14:20 Calamine 8% Topical Lotion - TP 1 applic QID PRN Administration FOR ITCHING Diphenhydramine HCl 25 mg 09/23/16 07:31 09/24/16 21:50 Benadryl - PO 25 mg Q6H PRN Administration FOR ITCHING Guaifenesin 10 ml 09/23/16 20:48 09/25/16 09:07 Robitussin - PO 10 ml Q4H PRN Administration COUGH Heparin Sodium (Porcine) 5,000 unit 09/23/16 10:00 09/25/16 09:07 Heparin - SQ Not Given BID JESSICA Ceftriaxone Sodium 50 mls @ 100 mls/hr 09/23/16 14:30 09/25/16 09:07 Rocephin 1gm Ivpb (Pre-Docked) IVPB 100 mls/hr DAILY JESSICA Administration Ibuprofen 200 mg 09/23/16 11:25 09/25/16 09:16 Advil - PO 200 mg TID PRN Administration PAIN Loperamide HCl 2 mg 09/25/16 10:36 09/25/16 11:41 Imodium - PO 2 mg Q8H PRN Administration DIARRHEA Methylprednisolone Sodium Succinate 30 mg 09/25/16 22:00 Solu-Medrol - IVPB BID JESSICA Ranitidine HCl 150 mg 09/23/16 10:00 09/25/16 09:07 Zantac - PO 150 mg DAILY JESSICA Administration Starch 1 each 09/25/16 22:00 Anusol Suppository - MT BID [facility] ASSESSMENT/PLAN: This is a 71-year-old woman with a history of hyperlipidemia, chronic sinusitis and possible asthma who presented to the ER with cough and shortness of breath. 1. 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 Leukocytosis - Steroid-induced 3. Hypokalemia - Improved 4. Hyperlipidemia Visit type - Emergency Visit Emergency Visit: Yes ED Registration Date: 09/23/16 Care time: The patient presented to the Emergency Department on the above date and was hospitalized for further evaluation of their emergent condition. - New Patient This patient is new to me today: No - Critical Care Critical Care patient: No - Discharge Referral Referred to [facility] Med P.C.: No
[2016-09-25] MEDS: PATIENT'S OWN MEDICATION (NON-FORMULARY) (Mometasone/Formoterol [Dulera 200 Mcg/5 Mcg Inha IH SCH (16:26)
[2016-09-25] MEDS: PHENYLEPHRINE 0.25%/STARCH 1 EACH SUPP.RECT PR SCH (21:50)
[2016-09-26] MEDS: guaiFENesin 200 MG/10 ML 10 ML UNIT-DOSE CUPS PO PRN ×2 (04:56→23:32)
[2016-09-26] MEDS: IBUPROFEN 200 MG TABLET PO PRN ×3 (04:56→21:44)
[2016-09-26] MEDS: ALBUTEROL SO4 2.5/IPRATROPIUM 0.5 INH SOL 3 ML VIAL.NEB. NEB SCH ×3 (06:32→18:10)
[2016-09-26 08:26] LABS: MCH 27.7 pg (25.7-33.7); MCHC 33.4 g/dl (32.0-36.0); MEAN CELL VOLUME 82.8 fl (80-96); MEAN PLT VOLUME 7.8 fl (7.5-11.1); PLATELET COUNT 315 K/MM3 (134-434); WHITE BLOOD COUNT 11.2 K/mm3 (4.0-10.0)
[2016-09-26 08:38] LABS: CALCIUM 9.2 mg/dL (8.5-10.1)
[2016-09-26 08:42] LABS: COCKROFT - GAULT 88.4255; CREATININE 0.6 mg/dL (0.55-1.02)
[2016-09-26] MEDS ORDERED: LOPERAMIDE HCL 2 MG CAPSULE PO ONE (09:41)
[2016-09-26] MEDS ORDERED: PT OWN MED DRAWER 7, Y5N ONE ×3 (09:42→21:44)
--- NOTE | 2016-09-26 09:47 | PN ---
Physical Exam: SUBJECTIVE: Patient seen and examined. She continues to have diarrhea. Cough is improving. OBJECTIVE: Vital Signs Period Temp Pulse Resp BP Sys/Cedillo Pulse Ox Last 24 Hr 98.0 F-98.7 F 74-86 20-20 130-148/66-86 98 GENERAL: The patient is awake, alert, and fully oriented, in no acute distress. LUNGS: Few rhonchi. HEART: Regular rate and rhythm, S1, S2 without murmur, rub or gallop. ABDOMEN: Soft, nontender, nondistended, normoactive bowel sounds, no guarding, no rebound, no hepatosplenomegaly, no masses. EXTREMITIES: 2+ pulses, warm, well-perfused, no edema. Laboratory Results - last 24 hr 09/25/16 09/26/16 09/26/16 01:00 06:30 06:30 WBC 11.2 H RBC 3.91 Hgb 10.8 Hct 32.4 MCV 82.8 MCHC 33.4 RDW 15.0 Plt Count 315 MPV 7.8 Neutrophils % Y Lymphocytes % Y Sodium 141 Potassium 4.1 Chloride 107 Carbon Dioxide 25 Anion Gap 9 BUN 28 H Creatinine 0.6 Random Glucose 108 H Calcium 9.2 Ur Specific [place] 1.020 Active Medications Generic Name Dose Route Start Last Admin Trade Name Freq PRN Reason Stop Dose Admin Albuterol Sulfate 1 amp 09/23/16 03:30 Ventolin 0.083% Nebulizer Soln - NEB Q4H PRN SHORT OF BREATH/WHEEZING Albuterol Sulfate 1 puff 09/23/16 11:25 09/23/16 12:33 Ventolin Hfa Inhaler - IH 1 puff Q6H PRN Administration SHORT OF BREATH/WHEEZING Albuterol/Ipratropium 1 amp 09/23/16 06:00 09/26/16 06:32 Duoneb - NEB 1 amp QIDR JESSICA Administration Budesonide/Formoterol Fumarate 1 puff 09/23/16 10:00 Symbicort 160/4.5mcg - IH BID JESSICA Calamine 1 applic 09/23/16 04:24 09/23/16 14:20 Calamine 8% Topical Lotion - TP 1 applic QID PRN Administration FOR ITCHING Diphenhydramine HCl 25 mg 09/23/16 07:31 09/24/16 21:50 Benadryl - PO 25 mg Q6H PRN Administration FOR ITCHING Guaifenesin 10 ml 09/23/16 20:48 09/26/16 04:56 Robitussin - PO 10 ml Q4H PRN Administration COUGH Heparin Sodium (Porcine) 5,000 unit 09/23/16 10:00 09/25/16 21:50 Heparin - SQ Not Given BID JESSICA Ceftriaxone Sodium 50 mls @ 100 mls/hr 09/23/16 14:30 09/25/16 09:07 Rocephin 1gm Ivpb (Pre-Docked) IVPB 100 mls/hr DAILY JESSICA Administration Ibuprofen 200 mg 09/23/16 11:25 09/26/16 04:56 Advil - PO 200 mg TID PRN Administration PAIN Loperamide HCl 2 mg 09/25/16 10:36 09/25/16 11:41 Imodium - PO 2 mg Q8H PRN Administration DIARRHEA Loperamide HCl 4 mg 09/26/16 09:41 Imodium - PO 09/26/16 09:42 ONCE ONE Methylprednisolone Sodium Succinate 30 mg 09/25/16 22:00 09/25/16 21:49 Solu-Medrol - IVPB 30 mg BID JESSICA Administration Ranitidine HCl 150 mg 09/23/16 10:00 09/25/16 09:07 Zantac - PO 150 mg DAILY JESSICA Administration Starch 1 each 09/25/16 22:00 09/25/16 21:50 Anusol Suppository - IA 1 each BID JESSICA Administration Zinc Oxide/Panthenol/Vitamin E 1 applic 09/26/16 14:00 Balmex Cream - TP TID [facility] ASSESSMENT/PLAN: This is a 71-year-old woman with a history of hyperlipidemia, chronic sinusitis and possible asthma who presented to the ER with cough and shortness of breath. 1. 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 Leukocytosis, steroid-induced - Improving 3. Hypokalemia - Improved 4. Hyperlipidemia 5. Diarrhea - Continue Imodium 6. Hemorrhoids - Anusol suppositories Visit type - Emergency Visit Emergency Visit: Yes ED Registration Date: 09/23/16 Care time: The patient presented to the Emergency Department on the above date and was hospitalized for further evaluation of their emergent condition. - New Patient This patient is new to me today: No - Critical Care Critical Care patient: No - Discharge Referral Referred to [facility] Med P.C.: No
[2016-09-26] MEDS: methylPREDNISolone NA SUCC 40 MG/1 ML VIAL IVPB SCH ×2 (09:48→21:36)
[2016-09-26] MEDS: RANITIDINE HCL 150 MG TABLET (FP) PO SCH (09:48)
[2016-09-26] MEDS: CEFTRIAXONE 50 ML IVPB SCH (09:48)
[2016-09-26] MEDS: HEPARIN NA (PORCINE) 5,000 UNITS/ML 1ML VIAL SQ SCH ×2 (09:48→21:39)
--- NOTE | 2016-09-26 10:54 | PN ---
Progress Note (short form) - Note Progress Note: PULMONARY VSS/AFEBRILE MILD SUBJECTIVE IMPROVEMENT ANICTERIC B/L RHONCHI S1S2 BS+ NO EDEMA/PAPULES LOWER/UPPER EXT LABS/MEDS/CONSULTS/NOTES/IMAGING/MICRO REVIEWED (1) Acute asthma exacerbation Code(s): J45.901 - UNSPECIFIED ASTHMA WITH (ACUTE) EXACERBATION Qualifiers: Asthma severity: moderate persistent Qualified Code(s): J45.41 - Moderate persistent asthma with (acute) exacerbation (2) Rash Code(s): R21 - RASH AND OTHER NONSPECIFIC SKIN ERUPTION (3) Bronchospasm Code(s): J98.01 - ACUTE BRONCHOSPASM (4) Cough Code(s): R05 - COUGH (5) Lung mass Code(s): R91.8 - OTHER NONSPECIFIC ABNORMAL FINDING OF LUNG FIELD IV Medrol BD TX Symbicort O2 as needed Reviewed images with CTS -> Feel that EBUS most appropriate to establish a tissue diagnosis. Agree with skin bx of lesions/granulomas would be c/w luisito WICK MD Problem List - Problems (1) Acute asthma exacerbation Code(s): J45.901 - UNSPECIFIED ASTHMA WITH (ACUTE) EXACERBATION Qualifiers: Asthma severity: moderate persistent Qualified Code(s): J45.41 - Moderate persistent asthma with (acute) exacerbation (2) Rash Code(s): R21 - RASH AND OTHER NONSPECIFIC SKIN ERUPTION (3) Bronchospasm Code(s): J98.01 - ACUTE BRONCHOSPASM (4) Cough Code(s): R05 - COUGH (5) Lung mass Code(s): R91.8 - OTHER NONSPECIFIC ABNORMAL FINDING OF LUNG FIELD
[2016-09-26 12:27] LABS: PLATELET ESTIMATE ADEQUATE (NORMAL)
[2016-09-26] MEDS: PHENYLEPHRINE 0.25%/STARCH 1 EACH SUPP.RECT PR SCH ×2 (12:31→21:36)
[2016-09-26] MEDS: ZINC OXIDE/PANTHENOL/VITAMIN E 56 GM TUBE TP SCH ×3 (12:32→21:37)
[2016-09-27] MEDS: ZINC OXIDE/PANTHENOL/VITAMIN E 56 GM TUBE TP SCH ×3 (06:04→22:57)
[2016-09-27] MEDS: ALBUTEROL SO4 2.5/IPRATROPIUM 0.5 INH SOL 3 ML VIAL.NEB. NEB SCH ×3 (06:43→11:09)
[2016-09-27 07:32] LABS: MCH 27.9 pg (25.7-33.7); MCHC 33.7 g/dl (32.0-36.0); MEAN CELL VOLUME 82.6 fl (80-96); MEAN PLT VOLUME 7.5 fl (7.5-11.1); PLATELET COUNT 305 K/MM3 (134-434); WHITE BLOOD COUNT 10.1 K/mm3 (4.0-10.0)
[2016-09-27 08:00] LABS: CALCIUM 8.6 mg/dL (8.5-10.1)
[2016-09-27 08:01] LABS: COCKROFT - GAULT 88.4255; CREATININE 0.6 mg/dL (0.55-1.02)
[2016-09-27] MEDS: PATIENT'S OWN MEDICATION (NON-FORMULARY) (Mometasone/Formoterol [Dulera 200 Mcg/5 Mcg Inha IH SCH (08:07)
[2016-09-27] MEDS ORDERED: PT OWN MED DRAWER 7, Y5N ONE ×2 (09:54→22:49)
[2016-09-27] MEDS: methylPREDNISolone NA SUCC 40 MG/1 ML VIAL IVPB SCH ×2 (10:05→22:52)
[2016-09-27] MEDS: HEPARIN NA (PORCINE) 5,000 UNITS/ML 1ML VIAL SQ SCH ×3 (10:07→22:51)
[2016-09-27] MEDS: CEFTRIAXONE 50 ML IVPB SCH (10:08)
[2016-09-27 10:50] LABS: METAMYELOCYTE 1 % (0-2); PLATELET ESTIMATE ADEQUATE (NORMAL)
[2016-09-27] MEDS: guaiFENesin 200 MG/10 ML 10 ML UNIT-DOSE CUPS PO PRN ×2 (11:44→20:04)
[2016-09-27] MEDS: RANITIDINE HCL 150 MG TABLET (FP) PO SCH (11:44)
[2016-09-27] MEDS: BUDESONIDE/FORMETEROL FUMARATE 160/4.5 mcg INHALER IH SCH ×2 (11:45→22:57)
--- NOTE | 2016-09-27 13:09 | PN ---
Physical Exam: SUBJECTIVE: Patient stated she's feeling better with duoneb treatment but still having productive cough with green sputum. Denies chest pain, fever, chills, urinary or bowel symptoms. OBJECTIVE: Vital Signs Period Temp Pulse Resp BP Sys/Cedillo Pulse Ox Last 24 Hr 97.9 F-98.3 F 68-83 18-20 140-151/66-72 98-98 GENERAL: AAO x3, in mild respiratory distress, able to speak in full sentences HEAD: Normal with no signs of trauma. EYES: PERRL, extraocular movements intact, sclera anicteric, conjunctiva clear is. ENT: oropharynx clear without exudates, moist mucous membranes. NECK: Trachea midline, full range of motion, supple, no lymphadenopathy LUNGS: CTAB (after duoneb) HEART: RRR, S1, S2 without murmur, rub or gallop. ABDOMEN: Soft, nontender, nondistended, normoactive bowel sounds, no guarding, no rebound EXTREMITIES: no edema. SKIN: resolved rash with healed scars, sparing face, anterior chest and abd, b/ l bottom of feet and palms CBCD WBC 10.1 K/mm3 (4.0-10.0) H 09/27/16 05:35 RBC 3.90 M/mm3 (3.60-5.2) 09/27/16 05:35 Hgb 10.9 GM/dL (10.7-15.3) 09/27/16 05:35 Hct 32.2 % (32.4-45.2) L 09/27/16 05:35 MCV 82.6 fl (80-96) 09/27/16 05:35 MCHC 33.7 g/dl (32.0-36.0) 09/27/16 05:35 RDW 15.0 % (11.6-15.6) 09/27/16 05:35 Plt Count 305 K/MM3 (134-434) 09/27/16 05:35 MPV 7.5 fl (7.5-11.1) 09/27/16 05:35 CMP Sodium 141 mmol/L (136-145) 09/27/16 05:35 Potassium 4.0 mmol/L (3.5-5.1) 09/27/16 05:35 Chloride 104 mmol/L (98-107) 09/27/16 05:35 Carbon Dioxide 26 mmol/L (21-32) 09/27/16 05:35 Anion Gap 11 (8-16) 09/27/16 05:35 BUN 22 mg/dL (7-18) H D 09/27/16 05:35 Creatinine 0.6 mg/dL (0.55-1.02) 09/27/16 05:35 Creat Clearance w eGFR > 60 (>60) 09/22/16 23:10 Calcium 8.6 mg/dL (8.5-10.1) 09/27/16 05:35 Total Bilirubin 0.4 mg/dL (0.2-1.0) 09/22/16 23:10 AST 11 U/L (15-37) L 09/22/16 23:10 ALT 16 U/L (12-78) 09/22/16 23:10 Alkaline Phosphatase 110 U/L (45-117) 09/22/16 23:10 Total Protein 7.7 g/dl (6.4-8.2) 09/22/16 23:10 Albumin 2.8 g/dl (3.4-5.0) L 09/22/16 23:10 Active Medications Generic Name Dose Route Start Last Admin Trade Name Freq PRN Reason Stop Dose Admin Albuterol Sulfate 1 amp 09/23/16 03:30 Ventolin 0.083% Nebulizer Soln - NEB Q4H PRN SHORT OF BREATH/WHEEZING Albuterol Sulfate 1 puff 09/23/16 11:25 09/23/16 12:33 Ventolin Hfa Inhaler - IH 1 puff Q6H PRN Administration SHORT OF BREATH/WHEEZING Budesonide/Formoterol Fumarate 2 puff 09/27/16 10:00 09/27/16 11:45 Symbicort 160/4.5mcg - IH 2 puff BID JESSICA Administration Calamine 1 applic 09/23/16 04:24 09/23/16 14:20 Calamine 8% Topical Lotion - TP 1 applic QID PRN Administration FOR ITCHING Diphenhydramine HCl 25 mg 09/23/16 07:31 09/24/16 21:50 Benadryl - PO 25 mg Q6H PRN Administration FOR ITCHING Guaifenesin 10 ml 09/23/16 20:48 09/27/16 11:44 Robitussin - PO 10 ml Q4H PRN Administration COUGH Heparin Sodium (Porcine) 5,000 unit 09/23/16 10:00 09/27/16 10:15 Heparin - SQ Not Given BID JESSICA Ceftriaxone Sodium 50 mls @ 100 mls/hr 09/23/16 14:30 09/27/16 10:08 Rocephin 1gm Ivpb (Pre-Docked) IVPB 100 mls/hr DAILY JESSICA Administration Ibuprofen 200 mg 09/23/16 11:25 09/26/16 21:44 Advil - PO 200 mg TID PRN Administration PAIN Loperamide HCl 2 mg 09/25/16 10:36 09/25/16 11:41 Imodium - PO 2 mg Q8H PRN Administration DIARRHEA Methylprednisolone Sodium Succinate 30 mg 09/25/16 22:00 09/27/16 10:05 Solu-Medrol - IVPB 30 mg BID JESSICA Administration Ranitidine HCl 150 mg 09/23/16 10:00 09/27/16 11:44 Zantac - PO 150 mg DAILY JESSICA Administration Starch 1 each 09/25/16 22:00 09/26/16 21:36 Anusol Suppository - [place] 1 each BID JESSICA Administration Zinc Oxide/Panthenol/Vitamin E 1 applic 09/26/16 14:00 09/27/16 06:04 Balmex Cream - TP 1 applic TID JESSICA Administration Microbiology 09/22/16 23:10 Blood Culture - Preliminary Blood - Peripheral Venous NO GROWTH OBTAINED AFTER 96 HOURS, INCUBATION TO CONTINUE FOR 1 DAYS. 09/22/16 23:10 Blood Culture - Preliminary Blood - Peripheral Venous NO GROWTH OBTAINED AFTER 96 HOURS, INCUBATION TO CONTINUE FOR 1 DAYS. IMAGING CXR on 09/23: Chronic interstitial lung disease without acute pathology CT chest with IV contrast on 09/09/2016: Large mediastinal and bilateral hilar lymph nodes, as described above. Right infrahilar 2.3 cm mass suggestive of an infrahilar lymph node versus lung mass for which further evaluation is recommended. It is causing moderate narrowing of the adjacent right middle lobe bronchus. There is adjacent subsegmental atelectasis and scarring in the dependent portion of the right middle lobe, posteriorly. ASSESSMENT/PLAN: 71 yo F with h/o upper extremity neuropathy, rheumatoid arthritis, chronic sinusitis, chronic bronchitis, deviated nasal septum, and unconfirmed diagnosis of asthma admitted to med-surg for acute on chronic dyspnea. Most likely 2/2 a combination of above stated chronic upper respiratory condition, but cannot r/o sarcoidosis because of CT finding of bilateral hilar lymph nodes; cannot r/o churg michoacano because of lab finding of eosinophila and diffuse rashes. Dyspnea, exertion and non-exertion - Likely 2/2 Interstitial lung disease + deviated septum + chronic sinusitis * consistent with finding on CXR and history+physical * Transition solu-medrol 30mg BID to predisone 60mg PO daily - Less likely 2/2 asthma exacerbation * no official dx in the past * somewhat refractory to duoneb * cont. solu-medrol * supplemental O2 * cont. symbicort * duoneb PRN only * Cont. rocephin 1g IVPB daily (day 5) * PFT as outpatient - Cannot r/o pulmonary sarcoidosis * consistent with finding of b/l hilar lymph nodes and diffuse rash ( resolved, ?erythema nodosum) * EBUS and PET as outpatient - Cannot r/o Eosinophilic granulomatosis with polyangiitis aka Churg [place] * consistent with finding of weight loss, neuropathy, chronic sinusitis, esosinophilia (resolved) and diffuse rash (resolved) * f/u P-ANCA, CRP, ESR, CBC, rheumatoid factor, STEVIE, hepatitis panel FEN - IVF not indicated - Normal lytes, Cont. to monitor - Regular diet Prophylaxis - DVT: Heparin SQ - GI: on zantac Disposition - Discharge tomorrow Code status - Full code Visit type - Emergency Visit Emergency Visit: No - New Patient This patient is new to me today: No - Critical Care Critical Care patient: No
[2016-09-27] MEDS: IBUPROFEN 200 MG TABLET PO PRN ×2 (13:11→22:52)
[2016-09-27] MEDS: PHENYLEPHRINE 0.25%/STARCH 1 EACH SUPP.RECT PR SCH ×2 (13:59→22:53)
--- NOTE | 2016-09-27 14:40 | PN ---
Progress Note (short form) - Note Progress Note: PULMONARY Breathing continues to improve. Still with cough and wheezing but less. No fevers or chills. Last Vital Signs Temp Pulse Resp BP Pulse Ox 97.8 F 76 20 147/72 98 09/27/16 13:44 09/27/16 13:44 09/27/16 13:44 09/27/16 09:00 09/26/16 21:00 Intake & Output 09/24/16 09/25/16 09/26/16 09/27/16 23:59 23:59 23:59 23:59 Intake Total 1600 1550 700 400 Output Total 400 Balance 1600 1150 700 400 Gen: NAD at rest Heart: RRR Lung: scattered rhonchi, wheezes Abd: soft, nontender Ext: no edema CBC, BMP 09/27/16 05:35 09/27/16 05:35 Active Medications Albuterol Sulfate (Ventolin 0.083% Nebulizer Soln -) 1 amp NEB Q4H PRN PRN Reason: SHORT OF BREATH/WHEEZING Albuterol Sulfate (Ventolin Hfa Inhaler -) 1 puff IH Q6H PRN PRN Reason: SHORT OF BREATH/WHEEZING Last Admin: 09/23/16 12:33 Dose: 1 puff Budesonide/Formoterol Fumarate (Symbicort 160/4.5mcg -) 2 puff IH BID [facility] Last Admin: 09/27/16 11:45 Dose: 2 puff Calamine (Calamine 8% Topical Lotion -) 1 applic TP QID PRN PRN Reason: FOR ITCHING Last Admin: 09/23/16 14:20 Dose: 1 applic Diphenhydramine HCl (Benadryl -) 25 mg PO Q6H PRN PRN Reason: FOR ITCHING Last Admin: 09/24/16 21:50 Dose: 25 mg Guaifenesin (Robitussin -) 10 ml PO Q4H PRN PRN Reason: COUGH Last Admin: 09/27/16 11:44 Dose: 10 ml Heparin Sodium (Porcine) (Heparin -) 5,000 unit SQ BID [facility] Last Admin: 09/27/16 10:15 Dose: Not Given Ceftriaxone Sodium (Rocephin 1gm Ivpb (Pre-Docked)) 50 mls @ 100 mls/hr IVPB DAILY [facility] Last Admin: 09/27/16 10:08 Dose: 100 mls/hr Ibuprofen (Advil -) 200 mg PO TID PRN PRN Reason: PAIN Last Admin: 09/27/16 13:11 Dose: 200 mg Loperamide HCl (Imodium -) 2 mg PO Q8H PRN PRN Reason: DIARRHEA Last Admin: 09/25/16 11:41 Dose: 2 mg Methylprednisolone Sodium Succinate (Solu-Medrol -) 30 mg IVPB BID [facility] Last Admin: 09/27/16 10:05 Dose: 30 mg Ranitidine HCl (Zantac -) 150 mg PO DAILY [facility] Last Admin: 09/27/16 11:44 Dose: 150 mg Starch (Anusol Suppository -) 1 each RI BID [facility] Last Admin: 09/27/16 13:59 Dose: 1 each Zinc Oxide/Panthenol/Vitamin E (Balmex Cream -) 1 applic TP TID [facility] Last Admin: 09/27/16 13:59 Dose: 1 applic A/P Acute Asthma Exacerbation r/o Churg [place] Syndrome Lymphadenopathy - can change steroids to PO prednisone 40mg daily in AM - inhaled bronchodilators - O2 as needed - antihistamines - taper steroids as outpt - can be discharged from pulmonary standpoint in AM if continues to improve with outpt f/u
--- NOTE | 2016-09-27 14:53 | PN ---
Teaching Attending Note Name of Resident: Martinez Hair ATTENDING PHYSICIAN STATEMENT I saw and evaluated the patient. I reviewed the resident's note and discussed the case with the resident. I agree with the resident's findings and plan as documented. SUBJECTIVE:states cough has improved. no longer productive. continues to have dyspnea on exertion. rash has improved and no longer pruritic. denies Cp, SOB, fever, chills, N/V/C/D OBJECTIVE: Last Vital Signs Temp Pulse Resp BP Pulse Ox 97.8 F 76 20 147/72 98 09/27/16 13:44 09/27/16 13:44 09/27/16 13:44 09/27/16 09:00 09/26/16 21:00 General NAD CV S1 S2 RRR no murmur/rub/gallop Lungs CTA B/L no wheezing/rales/rhonchi Skin flat macules sporadically on all extremities nothing appreciated on back or abdomen, some mild excoriations around lesions ASSESSMENT AND PLAN: 71yo F with PMH hyperlipidemia, chronic sinusitis and possible asthma who presented to the ER with cough and shortness of breath. 1. Acute Asthma exacerbation- with eosinophila and rash. possible churg refugio vs sarcoidosis. clinically improved. eosinophilia resolved. Ceftriaxone day5. on solu-medrol taper. autoimmune workup pending. evaluated by rheum and pulm. pre and post O2. switch nebs to prn and monitor improvement. will not consult dermatology at this time for skin bx as rash practically healed and has been on steroids. cont calamine lotion prn. will need outpatient EBUS and PET scan. cont inhalers. pt does not have scabies(no tracking in finger webbing). will d/ c contact precautions 2. Leukocytosis-, steroid-induced. afebrile 3. Hypokalemia-resoled 4. Hyperlipidemia 5. Diarrhea-resolved 6. d/c planning in AM
[2016-09-28] MEDS: guaiFENesin 200 MG/10 ML 10 ML UNIT-DOSE CUPS PO PRN (04:53)
[2016-09-28] MEDS ORDERED: PT OWN MED DRAWER 7, Y5N ONE ×2 (05:41→11:09)
[2016-09-28] MEDS: ALBUTEROL SO4 6.7 GM HFA INHALER IH PRN (05:45)
[2016-09-28] MEDS: ZINC OXIDE/PANTHENOL/VITAMIN E 56 GM TUBE TP SCH (05:46)
[2016-09-28] MEDS: CEFTRIAXONE 50 ML IVPB SCH (09:24)
[2016-09-28] MEDS: methylPREDNISolone NA SUCC 40 MG/1 ML VIAL IVPB SCH (09:24)
[2016-09-28] MEDS: RANITIDINE HCL 150 MG TABLET (FP) PO SCH (09:24)
[2016-09-28] MEDS: HEPARIN NA (PORCINE) 5,000 UNITS/ML 1ML VIAL SQ SCH (09:32)
[2016-09-28 10:24] VITALS: BP 149/82; PULSE 72; TEMP 98.2
[2016-09-28] MEDS: PHENYLEPHRINE 0.25%/STARCH 1 EACH SUPP.RECT PR SCH (11:13)
[2016-09-28] MEDS: BUDESONIDE/FORMETEROL FUMARATE 160/4.5 mcg INHALER IH SCH (11:13)
--- NOTE | 2016-09-28 11:16 | PN ---
Teaching Attending Note Name of Resident: Martinez Hair ATTENDING PHYSICIAN STATEMENT I saw and evaluated the patient. I reviewed the resident's note and discussed the case with the resident. I agree with the resident's findings and plan as documented. SUBJECTIVE:currently asymptomatic. rash has mostly disappeared. denies Cp, SOB, fever, chills, N/V/C/D OBJECTIVE: Last Vital Signs Temp Pulse Resp BP Pulse Ox 98.2 F 72 18 149/82 95 09/28/16 09:00 09/28/16 09:00 09/28/16 09:00 09/28/16 09:00 09/28/16 09:00 General NAD Lungs CTA B/L no wheezing/rales/rhonchi Skin flat macules sporadically on all extremities nothing appreciated on back or abdomen, some mild excoriations around lesions ASSESSMENT AND PLAN: 71yo F with PMH hyperlipidemia, chronic sinusitis and possible asthma who presented to the ER with cough and shortness of breath. 1. Acute Asthma exacerbation- with eosinophila and rash. possible churg refugio vs sarcoidosis. clinically improved. eosinophilia resolved. completed 5 days of Ceftriaxone. will d/c on prednisone 60mg. does not qualify for home O2. expressed importance of following up with Pulmonary and CT surgery for EBUS and PET scan. cont inhalers. rash mostly cleared if does not resolve can consider dermatology eval for skin bx. cont inhalers. pulmonary/CT surgery/Rheum follow up 2. Leukocytosis-, steroid-induced. afebrile 3. Hypokalemia-resoled 4. Hyperlipidemia 5. Diarrhea-resolved 6. d/c home
--- NOTE | 2016-09-28 15:38 | DS ---
Physical Exam: SUBJECTIVE: Patient seen and examined at bedside. She was still short of breath and coughing but much less frequent and able to pull through the night without breathing treatment. Denies fever, chills, chest pain, n/v, headache and dizziness. OBJECTIVE: Vital Signs Period Temp Pulse Resp BP Sys/Cedillo Pulse Ox Last 24 Hr 98 F-98.5 F 59-72 18-20 136-149/70-82 95-95 PHYSICAL EXAM GENERAL: AAO x3, in no respiratory distress, able to speak in full sentences HEAD: Normal with no signs of trauma. EYES: PERRL, extraocular movements intact, sclera anicteric, conjunctiva clear is. ENT: oropharynx clear without exudates, moist mucous membranes. NECK: Trachea midline, full range of motion, supple, no lymphadenopathy LUNGS: CTAB HEART: RRR, S1, S2 without murmur, rub or gallop. ABDOMEN: Soft, nontender, nondistended, normoactive bowel sounds, no guarding, no rebound EXTREMITIES: no edema. SKIN: healed rash with healed scars, sparing face, anterior chest and abd, b/l bottom of feet and palms LABS Laboratory Results - last 24 hr 09/25/16 06:15 Tot Complement (CH50) 33 L HOSPITAL COURSE: Date of Admission:09/23/16 71 yo F with h/o upper extremity neuropathy, rheumatoid arthritis, chronic sinusitis, chronic bronchitis, deviated nasal septum, and unconfirmed diagnosis of asthma admitted to med-surg for acute on chronic dyspnea. Most likely 2/2 a combination of above stated chronic upper respiratory condition, but cannot r/o sarcoidosis because of CT finding of bilateral hilar lymph nodes; cannot r/o churg mich[place]acano because of lab finding of eosinophila and diffuse rashes. CT chest with IV contrast on 09/09/2016 showed large mediastinal and bilateral hilar lymph nodes, right infrahilar 2.3 cm mass suggestive of an infrahilar lymph node versus lung mass. It is causing moderate narrowing of the adjacent right middle lobe bronchus. There is adjacent subsegmental atelectasis and scarring in the dependent portion of the right middle lobe, posteriorly. CXR on 09/23 showed Chronic interstitial lung disease without acute pathology. The etiology for her chronic conditions remain unclear and warrant further workups as outpatient. It's likely due to interstitial lung disease with deviated septum plus chronic sinusitis which is consistent with finding on CXR and history+physical, for which she's treated with solu-medrol 40mg IVPB Q6H. Asthma exacerbation could be a possibility, but less likely because there's no official dx in the past and she's somewhat refractory to duoneb. She can do a PFT as outpatient. Pulmonary sarcoidosis cannot be ruled out because it's onsistent with finding of b/l hilar lymph nodes and diffuse rash (resolved, ? erythema nodosum). She will need EBUS and PET as outpatient. Lastly, eosinophilic granulomatosis with polyangiitis aka Churg [place] cannot be ruled out either. It's consistent with finding of weight loss, neuropathy, chronic sinusitis, esosinophilia (resolved) and diffuse rash (resolved). P-ANCA, CRP, ESR, CBC, rheumatoid factor, STEVIE, hepatitis panel were sent but still pending. She's now in stable condition to be discharged home and continue outpatient workup. Detailed instruction is given to her for follow up with the thoracic surgeon, exchange engineer, printed circuit board layout designer, and PMD. She will also need to take predisone 60mg every day. Date of Discharge: 09/28/16 Minutes to complete discharge: 35 Discharge Summary Reason For Visit: ACUTE ASTHMA EXACERBATION RASH Condition: Stable - Instructions Diet, Activity, Other Instructions: Instruction of continuing care: You were admitted to the hospital due to acute on chronic shortness of breath. Upon extensive workup, it's unclear what is causing your chronic shortness of breath and cough. There are many possibilities that need to be ruled out one by one. It's important that you follow up with Dr. Hoffman (Thoracic surgeon) and Dr. Florence (Fitness Trainer) to continue outpatient workups to find out the root cause. They will send you to do some outpatient imaging tests and lab works which will help pinpoint it. Continue calamine lotion as needed for your skin rash, If it does not improve consider following up with a extermination inspector for skin biopsy Here is the list of things you need to do upon discharge: 1. Continue to take predisone 60mg once daily 2. See Dr. Hoffman within a week for outpatient imaging tests (PET and EBUS) 3. See Dr. Florence within a week for pulmonary function test 4. See Dr. Ames as soon as possible to rule out any autoimmune component of your condition 5. See your primary doctor as soon as possible Resume all the rest of your home medications and usual activities. Do not take motrin while on steroids as this will increase your risk for stomach ulcers. take tylenol as needed. Referrals: Brendan Florence MD [Staff Physician] - (pulmonary) Ronald Ames MD [Staff Physician] - (Rheumatology) Jareth Espino [Non Staff, Medical] - Salvador Hoffman MD [Staff Physician] - (cardiothoracic surgeon) Disposition: HOME - Home Medications Comprehensive Discharge Medication List: Ambulatory Orders Albuterol Sulfate Inhaler - [Ventolin HFA Inhaler -] 1 puff IN Q6H PRN 09/23/16 Mometasone/Formoterol [Dulera 200 Mcg/5 Mcg Inhaler] 2 inh IH BID 09/23/16 Ranitidine [Zantac -] 150 mg PO DAILY 09/23/16 Prednisone [Deltasone -] 60 mg PO DAILY #90 tablet 09/28/16 This patient is new to me today: No Emergency Visit: No Critical Care patient: No - Discharge Referral Referred to [facility] No
[2016-09-30 00:07] LABS: C-ANCA <1:20 titer (Neg:<1:20); MYELOPEROXIDASE ANTIBODY <9.0 U/mL (0.0-9.0); P-ANCA <1:20 titer (Neg:<1:20); PROTEINASE-3 ANTIBODY <3.5 U/mL (0.0-3.5)
--- NOTE | 2016-10-01 19:22 | EKG ---
Test Reason : Blood Pressure : / mmHG Vent. Rate : 111 BPM Atrial Rate : 111 BPM P-R Int : 182 ms QRS Dur : 106 ms QT Int : 340 ms P-R-T Axes : 055 048 009 degrees QTc Int : 462 ms SINUS TACHYCARDIA POSSIBLE LEFT ATRIAL ENLARGEMENT T WAVE ABNORMALITY, CONSIDER INFERIOR ISCHEMIA ABNORMAL ECG WHEN COMPARED WITH ECG OF 09-SEP-2016 17:34, NO SIGNIFICANT CHANGE WAS FOUND Confirmed by TONG SANCHEZ MD ([id number]) on 10/01/2016 7:22:07 PM Referred By: Confirmed By:TONG SANCHEZ MD
== END 2016-09-28 13:11 | disposition home or self-care (01) | DRG 141 ==
LOC: JER 21:27 → JERBED 09-23 01:42 → UNDOADMIN 09-23 02:16 → J6S 09-23 04:48
PROVIDERS: ADMIT Internal Medicine; ATTEND Internal Medicine
DX: J45.901 Unspecified asthma with (acute) exacerbation (principal); E78.5 Hyperlipidemia, unspecified; E87.6 Hypokalemia; D72.829 Elevated white blood cell count, unspecified; R19.7 Diarrhea, unspecified; R59.1 Generalized enlarged lymph nodes; R21 Rash and other nonspecific skin eruption; K64.9 Unspecified hemorrhoids; J32.9 Chronic sinusitis, unspecified
CPT/HCPCS: 36415; 71010-TC; 80048; 80053; 81003; 81015; 82550; 83520; 83735; 84484; 85025; 85027; 85610; 85651; 86038; 86140; 86162; 86256; 86431; 87040; 93005; 93010; 93306-TC; 94640; 94761; 97116-GP; 97161; 99283-25; J1644

== ENCOUNTER 2017-01-16 11:00 | Observation (INO) | payer OTHER ==
--- NOTE | 2017-01-16 11:17 | PDOC ---
History of Present Illness - General Chief Complaint: Respiratory Stated Complaint: WEAKNESS (RAPID RESPONSE) Time Seen by Provider: 01/16/17 11:17 - History of Present Illness Initial Comments: 71 year old female with pmh asthma and HLD presenting from intake after a rapid response was called because she seemed slightly steady on her feet so the rapid was called. The patient was mentating well and not acutely ill on appearance with good vital signs once we responded to the rapid. She was SATing well on RA and VSS. She just admitted to this chronic inability to ambulate properly with weakness. that has acutely worsened. The majority of her symptoms revolve aroudn her subjective SOB. 01/16/17 12:26 01/16/17 20:04 Past History - Past Medical History Allergies/Adverse Reactions: Allergies Allergy/AdvReac Type Severity Reaction Status Date / Time No Known Allergies Allergy Verified 01/16/17 12:17 Home Medications: Ambulatory Orders Oxymetazoline HCl [Nasal [place]] 30 ml NS HS 01/16/17 Rosuvastatin Calcium [Crestor] 20 mg PO HS 01/16/17 Asthma: Yes GI Disorders: Yes (gerd) Hypercholesterolemia: Yes - Immunization History Immunization Up to Date: No - Suicide/Smoking/Psychosocial Hx Smoking History: Never smoked Have you smoked in the past 12 months: No Information on smoking cessation initiated: No Hx Alcohol Use: No Drug/Substance Use Hx: No Substance Use Type: None Review of Systems - Review of Systems Constitutional: Yes: Loss of Appetite. No: Chills, Diaphoresis, Fever Respiratory: Yes: Cough, Shortness of Breath, SOB with Exertion Cardiac (ROS): Yes: Lightheadedness. No: Chest Pain, Syncope, Chest Tightness ABD/GI: No: Diarrhea, Nausea, Vomiting *Physical Exam - Vital Signs Last Vital Signs Temp Pulse Resp BP Pulse Ox 98 F 85 20 132/82 97 01/16/17 11:07 01/16/17 11:07 01/16/17 11:07 01/16/17 11:07 01/16/17 11:07 - Physical Exam General Appearance: Yes: Appropriately Dressed, Apparent Distress, Mild Distress HEENT: positive: EOMI, MISTI. negative: Normal ENT Inspection, Normal Voice Neck: positive: Trachea midline, Normal Thyroid, Supple. negative: Tender, Rigid Respiratory/Chest: negative: Chest Tender, Lungs Clear, Normal Breath Sounds ( Slightly SOB and lung soudns positive for bilateral rhonchi and rales.), Respiratory Distress, Accessory Muscle Use Cardiovascular: positive: Regular Rhythm, Regular Rate. negative: Murmur, Bradycardia, Tachycardia Gastrointestinal/Abdominal: positive: Normal Bowel Sounds, Flat, Soft. negative : Tender Musculoskeletal: positive: Normal Inspection Extremity: positive: Normal Inspection, Normal Range of Motion Integumentary: positive: Normal Color, Dry, Warm Neurologic: positive: Fully Oriented, Alert, Normal Mood/Affect, Motor Strength 09/02 ED Treatment Course - LABORATORY CBC & Chemistry Diagram: 01/16/17 11:46 01/16/17 11:46 Medical Decision Making - Medical Decision Making 71 year old female rapid response patient who was complaining of generalized weakness and subjective SOB. There are no vital sign abnormalities and she has no lab abnormalities that point to infection or other electrolyte cause for weakness. Her lungs do sound poor and are concernign for pneumonia although CXR is unchanged from previous. Will admit under Dr. Husain for obs tele and give 40 meq K and levaquin IV. 01/16/17 15:20 01/16/17 15:27 01/16/17 20:05 *DC/Admit/Observation/Transfer Diagnosis at time of Disposition: PNA (pneumonia), Weakness - Discharge Dispostion Admit: Yes
[2017-01-16 11:24] VITALS: BMI 26.2
[2017-01-16 12:00] LABS: BASOPHIL 1.2 % (0-2.0); EOSINOPHIL 10.5 % (0-4.5); MCH 28.4 pg (25.7-33.7); MEAN CELL VOLUME 83.6 fl (80-96); MEAN PLT VOLUME 6.7 fl (7.5-11.1); NEUTROPHILS 52.7 % (42.8-82.8); PLATELET COUNT 269 K/MM3 (134-434); RDW 14.4 % (11.6-15.6); WHITE BLOOD COUNT 5.3 K/mm3 (4.0-10.0)
[2017-01-16] MEDS ORDERED: SODIUM CHLORIDE 500 ML IV STA (12:23)
[2017-01-16] MEDS ORDERED: ALBUTEROL SO4 2.5/IPRATROPIUM 0.5 INH SOL 3 ML VIAL.NEB. NEB ONE ×2 (12:23→12:26)
[2017-01-16 12:34] LABS: ALBUMIN 3.4 g/dl (3.4-5.0); ANION GAP 11 (8-16); BILIRUBIN,TOTAL 0.7 mg/dL (0.2-1.0); CALCIUM 8.7 mg/dL (8.5-10.1); CO2 24 mmol/L (21-32); CREATININE 0.6 mg/dL (0.55-1.02); GLUCOSE,RANDOM 85 mg/dL (74-106); MAGNESIUM 2.2 mg/dL (1.8-2.4); PHOSPHOROUS 2.6 mg/dL (2.5-4.9); SGOT/AST 13 U/L (15-37); SGPT/ALT 19 U/L (12-78); TOT PROT 6.9 g/dl (6.4-8.2)
[2017-01-16 12:36] LABS: ALK PHOS 81 U/L (45-117); CPK 80 IU/L (26-192); TROPONIN I < 0.02 ng/ml (0.00-0.05)
--- NOTE | 2017-01-16 13:50 | EKG ---
Test Reason : Blood Pressure : / mmHG Vent. Rate : 070 BPM Atrial Rate : 070 BPM P-R Int : 192 ms QRS Dur : 094 ms QT Int : 402 ms P-R-T Axes : 052 013 036 degrees QTc Int : 434 ms NORMAL SINUS RHYTHM NORMAL ECG WHEN COMPARED WITH ECG OF 22-SEP-2016 21:40, VENT. RATE HAS DECREASED BY 41 BPM T WAVE VARIATION Confirmed by PREET WEST MD ([id number]) on 01/16/2017 1:50:20 PM Referred By: Confirmed By:PREET WEST MD
[2017-01-16] MEDS ORDERED: POTASSIUM CHLORIDE TABS 20 MEQ TABLET.ER (FP) PO ONE ×2 (15:16→15:33)
[2017-01-16] MEDS ORDERED: LEVOFLOXACIN 500 MG IVPB 100 ML IVPB ONE (15:48)
--- NOTE | 2017-01-16 17:49 | HP ---
Admitting History and Physical - Primary Care Physician PCP: Jose De Jesus Husain - Admission History of Present Illness: - 71 year old female with pmh asthma and HLD presenting from intake after a rapid response was called because she seemed slightly steady on her feet so the rapid was called. sent to er by for cough and upper resp symptoms - Past Medical History Cardiovascular: Yes: Hyperlipdemia. No: AFIB Pulmonary: Yes: Asthma, Pneumonia. No: Cancer, O2 Dependent Heme/Onc: Yes: Anemia ENT: Yes: Sinusitis Dermatology: Yes: Other (RECENT ? SCABIES) - Smoking History Smoking history: Never smoked Have you smoked in the past 12 months: No - Alcohol/Substance Use Hx Alcohol Use: No - Social History ADL: Independent Home Medications - Allergies Allergies/Adverse Reactions: Allergies Allergy/AdvReac Type Severity Reaction Status Date / Time No Known Allergies Allergy Verified 01/16/17 12:17 - Home Medications Home Medications: Ambulatory Orders Oxymetazoline HCl [Nasal [place]] 30 ml NS HS 01/16/17 Rosuvastatin Calcium [Crestor] 20 mg PO HS 01/16/17 Prednisone 10 mg PO ASDIR #30 tablet 01/18/17 Physical Examination Vital Signs: Vital Signs Temperature 98.1 F 01/16/17 16:33 Pulse Rate 74 01/16/17 16:33 Respiratory Rate 18 01/16/17 16:33 Blood Pressure 131/74 01/16/17 16:33 O2 Sat by Pulse Oximetry (%) 99 01/16/17 16:33 Constitutional: Yes: No Distress HENT: Yes: Atraumatic Neck: Yes: Supple Cardiovascular: Yes: Regular Rate and Rhythm Respiratory: Yes: Rhonchi Gastrointestinal: Yes: Normal Bowel Sounds Extremities: Yes: WNL Edema: No Peripheral Pulses WNL: Yes Neurological: Yes: Alert, Oriented Problem List - Problems (1) Weakness Assessment/Plan: doing well Code(s): R53.1 - WEAKNESS (2) PNA (pneumonia) Assessment/Plan: start abx id consult stable Code(s): J18.9 - PNEUMONIA, UNSPECIFIED ORGANISM (3) Asthma attack Assessment/Plan: iv steroids duo nebs prn oxygen Code(s): J45.901 - UNSPECIFIED ASTHMA WITH (ACUTE) EXACERBATION (4) Bronchospasm Assessment/Plan: duo nebs prn Code(s): J98.01 - ACUTE BRONCHOSPASM Assessment/Plan Laboratory Tests 01/16/17 01/16/17 01/16/17 11:45 11:46 11:46 WBC 5.3 D RBC 4.00 Hgb 11.4 Hct 33.5 MCV 83.6 MCH 28.4 MCHC 34.0 RDW 14.4 Plt Count 269 MPV 6.7 L D Neutrophils % 52.7 D Lymphocytes % 26.1 D Monocytes % 9.5 D Eosinophils % 10.5 H D Basophils % 1.2 Sodium 142 Potassium 3.4 L Chloride 107 Carbon Dioxide 24 Anion Gap 11 BUN 12 D Creatinine 0.6 Creat Clearance w eGFR > 60 POC Glucometer [phone] Random Glucose 85 D Calcium 8.7 Phosphorus 2.6 Magnesium 2.2 Total Bilirubin 0.7 D AST 13 L ALT 19 Alkaline Phosphatase 81 D Creatine Kinase 80 Troponin I < 0.02 Total Protein 6.9 Albumin 3.4 D 01/16/17 11:46 WBC RBC Hgb Hct MCV MCH MCHC RDW Plt Count MPV Neutrophils % Lymphocytes % Monocytes % Eosinophils % Basophils % Sodium Potassium Chloride Carbon Dioxide Anion Gap BUN Creatinine Creat Clearance w eGFR POC Glucometer Random Glucose Calcium Phosphorus Magnesium Total Bilirubin AST ALT Alkaline Phosphatase Creatine Kinase Cancelled Troponin I Cancelled Total Protein Albumin
[2017-01-16 19:28] LABS: CPK 72 IU/L (26-192); TROPONIN I < 0.02 ng/ml (0.00-0.05)
[2017-01-16] MEDS ORDERED: CEFTRIAXONE 1 GM in DEXTROSE 5%-WATER - 50 ML IVPB SCH (20:15)
[2017-01-16] MEDS ORDERED: cefTRIAXone SODIUM 1 GM VIAL ONE (20:19)
[2017-01-16] MEDS ORDERED: DEXTROSE 5%-WATER - 50 ML IVPB ONE (20:19)
[2017-01-16] MEDS: methylPREDNISolone NA SUCC 125 MG/2 ML VIAL IVPB SCH (20:33)
[2017-01-16] MEDS: guaiFENesin/CODEINE 10 ML UNIT-DOSE CUPS PO PRN (20:49)
[2017-01-16] MEDS: CEFTRIAXONE 1 GM in DEXTROSE 5%-WATER - 50 ML IVPB SCH (20:49)
[2017-01-16] MEDS ORDERED: PNEUMOC 13-VAL CONJ-DIP CRM/PF 0.5 ML DISP.SYRIN IM ONE (21:00)
[2017-01-16] MEDS: ROSUVASTATIN CA 20 MG TABLET (FP) PO SCH (21:01)
[2017-01-16 23:12] LABS: URINE APPEARANCE CLEAR; URINE BILIRUBIN NEGATIVE (NEGATIVE); URINE BLOOD NEGATIVE (NEGATIVE); URINE COLOR STRAW; URINE GLUCOSE (UA) NEGATIVE (NEGATIVE); URINE KETONE NEGATIVE (NEGATIVE); URINE NITRITE NEGATIVE (NEGATIVE); URINE PROTEIN NEGATIVE (NEGATIVE); URINE UROBILINOGEN NEGATIVE mg/dL (0.2-1.0)
[2017-01-16 23:14] LABS: URINE LEUK ESTERASE 3+ (NEGATIVE)
[2017-01-16 23:15] LABS: URINE MUCUS RARE; URINE RBC <1 /hpf (0-3); URINE WBC 7 /hpf (3-5)
[2017-01-17] MEDS: methylPREDNISolone NA SUCC 125 MG/2 ML VIAL IVPB SCH ×3 (02:30→18:08)
[2017-01-17 07:59] LABS: BASOPHIL 0.4 % (0-2.0); EOSINOPHIL 0.2 % (0-4.5); MCH 28.6 pg (25.7-33.7); MCHC 33.8 g/dl (32.0-36.0); MEAN CELL VOLUME 84.6 fl (80-96); MEAN PLT VOLUME 7.3 fl (7.5-11.1); PLATELET COUNT 248 K/MM3 (134-434); RDW 14.2 % (11.6-15.6); WHITE BLOOD COUNT 3.4 K/mm3 (4.0-10.0)
[2017-01-17 08:10] LABS: ALBUMIN 3.2 g/dl (3.4-5.0); ANION GAP 8 (8-16); CALCIUM 9.2 mg/dL (8.5-10.1); CO2 25 mmol/L (21-32); GLUCOSE,RANDOM 163 mg/dL (74-106)
[2017-01-17 08:14] LABS: ALK PHOS 78 U/L (45-117); BILIRUBIN,TOTAL 0.5 mg/dL (0.2-1.0); CREATININE 0.6 mg/dL (0.55-1.02); SGOT/AST 15 U/L (15-37); SGPT/ALT 19 U/L (12-78)
[2017-01-17] MEDS ORDERED: cefTRIAXone SODIUM 1 GM VIAL ONE (09:58)
[2017-01-17] MEDS ORDERED: DEXTROSE 5%-WATER - 50 ML IVPB ONE (09:58)
[2017-01-17] MEDS: ACETAMINOPHEN 325 MG TABLET (FP) PO PRN ×2 (10:42→21:20)
[2017-01-17] MEDS: guaiFENesin/CODEINE 10 ML UNIT-DOSE CUPS PO PRN ×2 (10:42→21:20)
[2017-01-17] MEDS: ALBUTEROL SO4 0.083% IH SOL 2.5 MG/3 ML VIAL.NEB. NEB PRN (10:57)
[2017-01-17] MEDS: CEFTRIAXONE 1 GM in DEXTROSE 5%-WATER - 50 ML IVPB SCH (10:58)
--- NOTE | 2017-01-17 11:26 | CON.CARD ---
Consult Consult Specialty:: Cardiology Referred by:: Dr. Husain Reason for Consultation:: Cardiac evaluation - History of Present Illness Chief Complaint: Reproducible chest pain History of Present Illness: Patient is a 71 year old female of descent with underlying history of hypercholesterolemia who came for CXR, was in registration when rapid response was called because she seemed unsteady on her feet. She complains of rib pain with cough - nonproductive. She denies shortness of breath or palpitations. She denies paroxysmal nocturnal dyspnea or orhtopnea. She denies fever or chills. She denies headache or lightheadedness. She complains of generalized weakness. Cardiology consultation was called for further input. Patient was recently evaluated by Pulmonary service with possible interstitial lung and hilar adenopathy. - History Source History Provided By: Patient, Medical Record Limitations to Obtaining History: No Limitations - Past Medical History Cardio/Vascular: Yes: Hyperlipdemia. No: AFIB Pulmonary: Yes: Asthma (Medical record states this, but patient denies), Pneumonia ENT: Yes: Sinusitis - Past Surgical History Additional Surgical History: Toe surgery - Alcohol/Substance Use Hx Alcohol Use: No History of Substance Use: reports: None - Smoking History Smoking history: Never smoked Have you smoked in the past 12 months: No - Social History ADL: Independent Home Medications - Allergies Allergies/Adverse Reactions: Allergies Allergy/AdvReac Type Severity Reaction Status Date / Time No Known Allergies Allergy Verified 01/16/17 12:17 - Home Medications Home Medications: Ambulatory Orders Oxymetazoline HCl [Nasal [place]] 30 ml NS HS 01/16/17 Rosuvastatin Calcium [Crestor] 20 mg PO HS 01/16/17 Family Disease History - Family Disease History Family Disease History: Heart Disease: Brother (Heart transplant, ) Review of Systems - Review of Systems Constitutional: denies: Chills, Fever Cardiovascular: denies: Chest Pain, Palpitations, Shortness of Breath Respiratory: reports: Cough. denies: Hemoptysis, Orthopnea, PND, SOB, SOB on Exertion Gastrointestinal: denies: Abdominal Pain, Constipation, Diarrhea, Melena, Nausea , Rectal Bleeding, Vomiting Musculoskeletal: denies: Back Pain, Joint Pain Neurological: reports: Weakness. denies: Dizziness, Headache, Seizure, Syncope Vital Signs: Vital Signs Temperature 98.9 F 01/17/17 09:43 Pulse Rate 85 01/17/17 09:43 Respiratory Rate 20 01/17/17 09:43 Blood Pressure 131/73 01/17/17 09:43 O2 Sat by Pulse Oximetry (%) 98 01/16/17 22:00 Neck: Yes: Supple Respiratory: Yes: CTA Bilaterally Gastrointestinal: Yes: Normal Bowel Sounds, Soft. No: Tenderness Cardiovascular: Yes: Regular Rate and Rhythm. No: Gallop JVD: No Carotid Bruit: No PMI: Non-Displaced Heart Sounds: Yes: S1, S2 Murmur: No: Systolic Murmur, Diastolic Murmur Edema: No - Other Data Labs, Other Data: CBC, BMP 01/17/17 05:35 01/17/17 05:35 Imaging - Results Chest X-ray: Report Reviewed (Unremarkable) EKG: Report Reviewed Problem List - Problems (1) Weakness Code(s): R53.1 - WEAKNESS (2) Cough Code(s): R05 - COUGH (3) Bronchospasm Code(s): J98.01 - ACUTE BRONCHOSPASM (4) Interstitial lung disease Code(s): J84.9 - INTERSTITIAL PULMONARY DISEASE, UNSPECIFIED Assessment/Plan 1. Chest pain syndrome appears musculoskeletal 2. Cough nonproductive 3. Hypercholesterolemia 4. Bronchial asthma vs. bronchospastic pulmonary process and history of hilar adenopathy PLAN: 1. Cardiac enzymes negative 2. Continue Rosuvastatin 3. Transthoracic echocardiography was done recently - normal LV systolic function, mild MR and TR 4. Analgesics as needed 5. Consider pulmonary follow up and further work up of etiology Further plans are to follow Asaf Stoddard MD
--- NOTE | 2017-01-17 15:11 | CON.ID ---
Consult Consult Specialty:: infectious diseases Reason for Consultation:: pna - History of Present Illness Chief Complaint: cough and passing out History of Present Illness: 71 year old female of descent with underlying history of hypercholesterolemia who came for CXR, was in registration when rapid response was called because she seemed unsteady on her feet. She complains of rib pain with cough - nonproductive. She denies shortness of breath or palpitations. according to the patient she has been having cough for 16 months patient has been having this issue for quite some time patient has been teated earlier and patient has had a ct scan done last month patient had a xray done yesterday which is essentially normal patient currently stable cough still present - History Source History Provided By: Patient Limitations to Obtaining History: No Limitations - Past Medical History Cardio/Vascular: Yes: Hyperlipdemia. No: AFIB Pulmonary: Yes: Asthma (Medical record states this, but patient denies), Pneumonia ENT: Yes: Sinusitis Dermatology: Yes: Other (RECENT ? SCABIES) - Past Surgical History Additional Surgical History: Toe surgery - Alcohol/Substance Use Hx Alcohol Use: No History of Substance Use: reports: None - Smoking History Smoking history: Never smoked Have you smoked in the past 12 months: No - Social History ADL: Independent Home Medications - Allergies Allergies/Adverse Reactions: Allergies Allergy/AdvReac Type Severity Reaction Status Date / Time No Known Allergies Allergy Verified 01/16/17 12:17 - Home Medications Home Medications: Ambulatory Orders Oxymetazoline HCl [Nasal [place]] 30 ml NS HS 01/16/17 Rosuvastatin Calcium [Crestor] 20 mg PO HS 01/16/17 Family Disease History - Family Disease History Family Disease History: Heart Disease: Brother (Heart transplant, ) Review of Systems - Review of Systems Constitutional: reports: Weakness Eyes: reports: No Symptoms HENT: reports: No Symptoms Neck: reports: No Symptoms Cardiovascular: reports: No Symptoms Respiratory: reports: Cough Gastrointestinal: reports: No Symptoms Genitourinary: reports: No Symptoms Integumentary: reports: No Symptoms Neurological: reports: No Symptoms Endocrine: reports: No Symptoms Hematology/Lymphatic: reports: No Symptoms Psychiatric: reports: No Symptoms Physical Exam Vital Signs: Vital Signs Temperature 98.7 F 01/17/17 14:00 Pulse Rate 83 01/17/17 14:00 Respiratory Rate 18 01/17/17 14:00 Blood Pressure 128/61 09/19/17 14:00 O2 Sat by Pulse Oximetry (%) 96 01/17/17 08:00 Constitutional: Yes: Well Nourished, No Distress, Calm Eyes: Yes: Conjunctiva Clear Neck: Yes: Supple, Trachea Midline Cardiovascular: Yes: Regular Rate and Rhythm Respiratory: Yes: Regular, CTA Bilaterally Gastrointestinal: Yes: Normal Bowel Sounds, Soft Musculoskeletal: Yes: WNL Extremities: Yes: WNL Neurological: Yes: Alert, Oriented Psychiatric: Yes: Alert, Oriented Imaging - Results Chest X-ray: Report Reviewed, Image Reviewed Cat Scan: Report Reviewed, Image Reviewed Assessment/Plan Problem List - Problems (1) Weakness Code(s): R53.1 - WEAKNESS (2) Cough Code(s): R05 - COUGH (3) Bronchospasm Code(s): J98.01 - ACUTE BRONCHOSPASM (4) Interstitial lung disease Code(s): J84.9 - INTERSTITIAL PULMONARY DISEASE, UNSPECIFIED after ooking at the previous ct scan,there has been significant decrease in lymph node sizes in the lung still continues to have dry cough one interesting thing is that the patient has been having eosinophilia and also patient has 2 cats at home and i dont know if patient has been having allergic reaction to the cats looking at the labs and ct scan patient has probably some type of alergic reaction plan continue ceftriaxone for now stop if the urine cx is negative incentive eladia rest as per primary
--- NOTE | 2017-01-17 17:57 | PN ---
Progress Note, Physician - Current Medication List Current Medications: Active Medications Acetaminophen (Tylenol -) 650 mg PO Q6H PRN PRN Reason: FEVER OR PAIN Last Admin: 01/17/17 10:42 Dose: 650 mg Albuterol Sulfate (Ventolin 0.083% Nebulizer Soln -) 1 amp NEB Q4H PRN PRN Reason: SHORT OF BREATH/WHEEZING Last Admin: 01/17/17 10:57 Dose: 1 amp Guaifenesin/Codeine Phosphate (Robitussin Ac -) 10 ml PO Q8H PRN PRN Reason: COUGH Last Admin: 01/17/17 10:42 Dose: 10 ml Methylprednisolone Sodium Succinate (Solu-Medrol -) 60 mg IVPB Q8H-IV JESSICA Last Admin: 01/17/17 10:35 Dose: 60 mg Rosuvastatin Calcium (Crestor -) 20 mg PO HS JESSICA Last Admin: 01/16/17 21:01 Dose: 20 mg - Objective Vital Signs: Vital Signs Temperature 98.7 F 01/17/17 14:00 Pulse Rate 83 01/17/17 14:00 Respiratory Rate 18 01/17/17 14:00 Blood Pressure 128/61 01/17/17 14:00 O2 Sat by Pulse Oximetry (%) 96 01/17/17 08:00 Constitutional: Yes: Calm HENT: Yes: Atraumatic Neck: Yes: Supple Cardiovascular: Yes: Regular Rate and Rhythm Respiratory: Yes: Rhonchi, Wheezes Gastrointestinal: Yes: Normal Bowel Sounds Extremities: Yes: WNL Neurological: Yes: Alert, Oriented Problem List - Problems (1) Weakness Assessment/Plan: doing well Code(s): R53.1 - WEAKNESS (2) PNA (pneumonia) Assessment/Plan: on abx Code(s): J18.9 - PNEUMONIA, UNSPECIFIED ORGANISM (3) Asthma attack Assessment/Plan: iv steroids Code(s): J45.901 - UNSPECIFIED ASTHMA WITH (ACUTE) EXACERBATION (4) Bronchospasm Code(s): J98.01 - ACUTE BRONCHOSPASM
[2017-01-17 19:47] LABS: CPK 60 IU/L (26-192); TROPONIN I < 0.02 ng/ml (0.00-0.05)
[2017-01-17] MEDS: ROSUVASTATIN CA 20 MG TABLET (FP) PO SCH (21:20)
[2017-01-18] MEDS: methylPREDNISolone NA SUCC 125 MG/2 ML VIAL IVPB SCH ×3 (01:14→17:35)
[2017-01-18] MEDS: ALBUTEROL SO4 0.083% IH SOL 2.5 MG/3 ML VIAL.NEB. NEB PRN (03:30)
[2017-01-18] MEDS: guaiFENesin/CODEINE 10 ML UNIT-DOSE CUPS PO PRN ×2 (09:20→14:59)
--- NOTE | 2017-01-18 09:34 | PN ---
Progress Note, Physician History of Present Illness: Continued dry cough with post-tussive chest discomfort, denies dyspnea. - Current Medication List Current Medications: Active Medications Acetaminophen (Tylenol -) 650 mg PO Q6H PRN PRN Reason: FEVER OR PAIN Last Admin: 01/17/17 21:20 Dose: 650 mg Albuterol Sulfate (Ventolin 0.083% Nebulizer Soln -) 1 amp NEB Q4H PRN PRN Reason: SHORT OF BREATH/WHEEZING Last Admin: 01/18/17 03:30 Dose: 1 amp Guaifenesin/Codeine Phosphate (Robitussin Ac -) 10 ml PO Q8H PRN PRN Reason: COUGH Last Admin: 01/18/17 09:20 Dose: 10 ml Methylprednisolone Sodium Succinate (Solu-Medrol -) 60 mg IVPB Q8H-IV JESSICA Last Admin: 01/18/17 09:09 Dose: 60 mg Rosuvastatin Calcium (Crestor -) 20 mg PO HS JESSICA Last Admin: 01/17/17 21:20 Dose: 20 mg - Objective Vital Signs: Vital Signs Temperature 97.9 F 01/18/17 08:04 Pulse Rate 84 01/18/17 08:04 Respiratory Rate 20 01/18/17 08:04 Blood Pressure 160/93 01/18/17 08:04 O2 Sat by Pulse Oximetry (%) 96 01/17/17 21:00 Constitutional: Yes: No Distress, Calm Neck: Yes: Supple Cardiovascular: Yes: Regular Rate and Rhythm Respiratory: Yes: Regular, Cough, Diminished Gastrointestinal: Yes: Normal Bowel Sounds, Soft Edema: No - ....Imaging EKG: Report Reviewed (NSR, no arrhythmias) Problem List - Problems (1) Bronchospasm Code(s): J98.01 - ACUTE BRONCHOSPASM (2) Cough Code(s): R05 - COUGH (3) Atypical chest pain Code(s): R07.89 - OTHER CHEST PAIN (4) Hyperlipidemia Code(s): E78.5 - HYPERLIPIDEMIA, UNSPECIFIED Qualifiers: Hyperlipidemia type: pure hypercholesterolemia Qualified Code(s): E78.00 - Pure hypercholesterolemia, unspecified; E78.0 - Pure hypercholesterolemia (5) Acute asthma exacerbation Code(s): J45.901 - UNSPECIFIED ASTHMA WITH (ACUTE) EXACERBATION Qualifiers: Asthma severity: moderate persistent Qualified Code(s): J45.41 - Moderate persistent asthma with (acute) exacerbation Assessment/Plan 1. 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 Hypercholesterolemia 3. Bronchial asthma with h/o flares and history of hilar adenopathy PLAN: 1. Ruled out for DC 2. Continue Rosuvastatin 20 qd 3. Transthoracic echocardiography was performed 01/17/2017 - normal LV and RV systolic function, mild MR and TR 4. Analgesics as needed 5. D/c telemetry, steroids taper, BD, O2 as needed
--- NOTE | 2017-01-18 15:59 | PN ---
Progress Note, Physician History of Present Illness: patient still with that dry cough stable otherwise - Current Medication List Current Medications: Active Medications Acetaminophen (Tylenol -) 650 mg PO Q6H PRN PRN Reason: FEVER OR PAIN Last Admin: 01/17/17 21:20 Dose: 650 mg Albuterol Sulfate (Ventolin 0.083% Nebulizer Soln -) 1 amp NEB Q4H PRN PRN Reason: SHORT OF BREATH/WHEEZING Last Admin: 01/18/17 03:30 Dose: 1 amp Guaifenesin/Codeine Phosphate (Robitussin Ac -) 10 ml PO Q8H PRN PRN Reason: COUGH Last Admin: 01/18/17 14:59 Dose: 10 ml Methylprednisolone Sodium Succinate (Solu-Medrol -) 60 mg IVPB Q8H-IV JESSICA Last Admin: 01/18/17 09:09 Dose: 60 mg Rosuvastatin Calcium (Crestor -) 20 mg PO HS JESSICA Last Admin: 01/17/17 21:20 Dose: 20 mg - Objective Vital Signs: Vital Signs Temperature 97.9 F 01/18/17 08:04 Pulse Rate 84 01/18/17 08:04 Respiratory Rate 20 01/18/17 08:04 Blood Pressure 160/93 01/18/17 08:04 O2 Sat by Pulse Oximetry (%) 98 01/18/17 08:00 Constitutional: Yes: No Distress, Calm Cardiovascular: Yes: S1, S2 Respiratory: Yes: Regular, Rhonchi Gastrointestinal: Yes: Normal Bowel Sounds, Soft Musculoskeletal: Yes: WNL Extremities: Yes: WNL Neurological: Yes: Alert, Oriented Psychiatric: Yes: Alert, Oriented Assessment/Plan Problem List - Problems (1) Weakness Code(s): R53.1 - WEAKNESS (2) Cough Code(s): R05 - COUGH (3) Bronchospasm Code(s): J98.01 - ACUTE BRONCHOSPASM (4) Interstitial lung disease Code(s): J84.9 - INTERSTITIAL PULMONARY DISEASE, UNSPECIFIED plan off of abx continue to monitor rest as per primary urine cx negative
--- NOTE | 2017-01-18 19:08 | PN ---
Progress Note, Physician History of Present Illness: still has cough - Current Medication List Current Medications: Active Medications Acetaminophen (Tylenol -) 650 mg PO Q6H PRN PRN Reason: FEVER OR PAIN Last Admin: 01/17/17 21:20 Dose: 650 mg Albuterol Sulfate (Ventolin 0.083% Nebulizer Soln -) 1 amp NEB Q4H PRN PRN Reason: SHORT OF BREATH/WHEEZING Last Admin: 01/18/17 03:30 Dose: 1 amp Guaifenesin/Codeine Phosphate (Robitussin Ac -) 10 ml PO Q8H PRN PRN Reason: COUGH Last Admin: 01/18/17 14:59 Dose: 10 ml Methylprednisolone Sodium Succinate (Solu-Medrol -) 60 mg IVPB Q8H-IV JESSICA Last Admin: 01/18/17 17:35 Dose: 60 mg Rosuvastatin Calcium (Crestor -) 20 mg PO HS JESSICA Last Admin: 01/17/17 21:20 Dose: 20 mg - Objective Vital Signs: Vital Signs Temperature 98.3 F 01/18/17 17:28 Pulse Rate 20 L 01/18/17 17:28 Respiratory Rate 69 H 01/18/17 17:28 Blood Pressure 134/73 01/18/17 17:28 O2 Sat by Pulse Oximetry (%) 98 01/18/17 16:33 Constitutional: Yes: No Distress HENT: Yes: Atraumatic Neck: Yes: Supple Cardiovascular: Yes: Regular Rate and Rhythm Respiratory: Yes: CTA Bilaterally Gastrointestinal: Yes: Normal Bowel Sounds Extremities: Yes: WNL Problem List - Problems (1) Weakness Assessment/Plan: doing well Code(s): R53.1 - WEAKNESS (2) PNA (pneumonia) Assessment/Plan: off of abx stable Code(s): J18.9 - PNEUMONIA, UNSPECIFIED ORGANISM (3) Asthma attack Assessment/Plan: iv steroids...will switch to po Code(s): J45.901 - UNSPECIFIED ASTHMA WITH (ACUTE) EXACERBATION (4) Bronchospasm Code(s): J98.01 - ACUTE BRONCHOSPASM Assessment/Plan pt see dr bella , she wants to see him as out pt, i have told her that i can call him here she refused
[2017-01-18] MEDS: ROSUVASTATIN CA 20 MG TABLET (FP) PO SCH (21:36)
[2017-01-19] MEDS: guaiFENesin/CODEINE 10 ML UNIT-DOSE CUPS PO PRN (00:38)
--- NOTE | 2017-01-19 10:53 | PN ---
Progress Note, Physician History of Present Illness: Non-productive cough with post-tussive chest discomfort improving, denies dyspnea. Reports perimeal irritation post BM. - Current Medication List Current Medications: Active Medications Acetaminophen (Tylenol -) 650 mg PO Q6H PRN PRN Reason: FEVER OR PAIN Last Admin: 01/17/17 21:20 Dose: 650 mg Albuterol Sulfate (Ventolin 0.083% Nebulizer Soln -) 1 amp NEB Q4H PRN PRN Reason: SHORT OF BREATH/WHEEZING Last Admin: 01/18/17 03:30 Dose: 1 amp Guaifenesin/Codeine Phosphate (Robitussin Ac -) 10 ml PO Q8H PRN PRN Reason: COUGH Last Admin: 01/19/17 00:38 Dose: 10 ml Rosuvastatin Calcium (Crestor -) 20 mg PO HS JESSICA Last Admin: 01/18/17 21:36 Dose: 20 mg - Objective Vital Signs: Vital Signs Temperature 97.6 F 01/19/17 06:00 Pulse Rate 62 01/19/17 06:00 Respiratory Rate 18 01/19/17 06:00 Blood Pressure 136/69 01/19/17 06:00 O2 Sat by Pulse Oximetry (%) 97 01/18/17 21:00 Constitutional: Yes: No Distress, Calm Neck: Yes: Supple Cardiovascular: Yes: Regular Rate and Rhythm Respiratory: Yes: Regular, Diminished Gastrointestinal: Yes: Normal Bowel Sounds, Soft, Abdomen, Obese Edema: No Problem List - Problems (1) Bronchospasm Code(s): J98.01 - ACUTE BRONCHOSPASM (2) Cough Code(s): R05 - COUGH (3) Atypical chest pain Code(s): R07.89 - OTHER CHEST PAIN (4) Hyperlipidemia Code(s): E78.5 - HYPERLIPIDEMIA, UNSPECIFIED Qualifiers: Hyperlipidemia type: pure hypercholesterolemia Qualified Code(s): E78.00 - Pure hypercholesterolemia, unspecified; E78.0 - Pure hypercholesterolemia (5) Acute asthma exacerbation Code(s): J45.901 - UNSPECIFIED ASTHMA WITH (ACUTE) EXACERBATION Qualifiers: Asthma severity: moderate persistent Qualified Code(s): J45.41 - Moderate persistent asthma with (acute) exacerbation Assessment/Plan 1. 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 Hypercholesterolemia 3. Bronchial asthma with h/o flares and history of hilar adenopathy PLAN: 1. Ruled out for GA 2. Continue Rosuvastatin 20 qd 3. Transthoracic echocardiography was performed 01/17/2017 - normal LV and RV systolic function, mild MR and TR 4. Analgesics as needed 5. D/c telemetry, steroids taper, BD, O2 as needed
[2017-01-19 11:17] VITALS: BP 126/66; PULSE 67; TEMP 97.3
[2017-01-19] MEDS ORDERED: predniSONE 20 MG TABLET (UD) PO ONE (11:30)
--- NOTE | 2017-01-19 17:58 | DS ---
Physical Examination Vital Signs: Vital Signs Temperature 97.3 F L 01/19/17 09:50 Pulse Rate 67 01/19/17 09:50 Respiratory Rate 18 01/19/17 09:50 Blood Pressure 126/66 01/19/17 09:50 O2 Sat by Pulse Oximetry (%) 97 01/19/17 09:00 Discharge Summary Reason For Visit: WEAKNESS - Instructions Referrals: Brendan Florence MD [Staff Physician] - Jareth Espino [Primary Care Provider] - Disposition: HOME - Home Medications Comprehensive Discharge Medication List: Ambulatory Orders Oxymetazoline HCl [Nasal [place]] 30 ml NS HS 01/16/17 Rosuvastatin Calcium [Crestor] 20 mg PO HS 01/16/17 Prednisone 10 mg PO ASDIR #30 tablet 01/18/17 ct home
== END 2017-01-19 13:03 | disposition home or self-care (01) ==
LOC: JER 11:00 → UNDOADMOB 15:34 → JERBED 15:34 → J4W 16:50 → OBSVTOIN 20:10 → INTOOBSV 20:10 → JERBED 01-17 11:20 → J4W 01-17 11:20 → J5S 01-18 12:38
PROVIDERS: ADMIT Internal Medicine; ATTEND Internal Medicine
CPT/HCPCS: 36415; 71020-TC; 80053; 81003; 81015; 83735; 84100; 84484; 85025; 87086; 90670; 93005; 93010; 93306-TC; 94640; 97116-GP; 97162-GP; 99285-25; G0378

== ENCOUNTER 2017-07-03 17:05 | Emergency (ER) | payer OTHER ==
[2017-07-03 17:15] VITALS: TEMP 98.6; BMI 25.7
[2017-07-03] MEDS ORDERED: ACETAMINOPHEN WITH CODEINE 300MG/30MG TABLET PO ONE (19:48)
[2017-07-03] MEDS ORDERED: ACETAMINOPHEN WITH CODEINE 300MG/30MG TABLET ONE (20:29)
--- NOTE | 2017-07-03 20:37 | PDOC ---
History of Present Illness - General History Source: Patient Exam Limitations: No Limitations - History of Present Illness Initial Comments: 07/03/17 20:45 The patient is a 72 year old female with a significant PMH hypertension and 3yrs of chronic daily cough who presents to the emergency department with worsening of chronic cough since May. The patient states the cough begins at approximately 1PM everyday and lasts about 8 hours. The patient endorses associated sweats, body aches, shortness of breath and chest congestion. The patient reports difficulty sleeping at night secondary to this cough. The patient states she has been followed by her PMD and ENT for her symptoms but they have been unable to find the cause for her cough. The patient states her cough has been persistent for the past three years with mild alleviation after a surgery for her nasal cavities in March but noticed the cough returned in May. The patient reports alleviation of her symptoms with prednisone in the past but is declining steroids at this time. The patient has a scheduled appointment with ENT tomorrow and with the funeral service practitioner/embalmer on 07/11/17. Th The patient takes mucinex in the morning and at night and takes meds for her sinuses. The patient denies chest pain, headache and dizziness. Denies fever, chills, nausea, vomit, diarrhea and constipation. Denies dysuria, frequency, urgency and hematuria. Allergies: NKA Social history: No reported alcohol, drug, or cigarette use. <Josie Sanders - Last Filed: 07/03/17 20:45> <Opal Bell - Last Filed: 07/03/17 21:08> - General Chief Complaint: Respiratory Stated Complaint: Shortness of Breath Time Seen by Provider: 07/03/17 19:29 Past History <Josie Sanders - Last Filed: 07/03/17 20:45> - Past Medical History Asthma: Yes (PATIENT DENIES HAVING ASTHMA) COPD: No GI Disorders: Yes (gerd) Hypercholesterolemia: Yes - Immunization History Immunization Up to Date: No - Suicide/Smoking/Psychosocial Hx Smoking History: Never smoked Have you smoked in the past 12 months: No Information on smoking cessation initiated: No Hx Alcohol Use: No Drug/Substance Use Hx: No Substance Use Type: None <Opal Bell - Last Filed: 07/03/17 21:08> - Past Medical History Allergies/Adverse Reactions: Allergies Allergy/AdvReac Type Severity Reaction Status Date / Time No Known Allergies Allergy Verified 07/03/17 17:12 Home Medications: Ambulatory Orders Rosuvastatin Calcium [Crestor] 20 mg PO HS 01/16/17 Acetaminophen W/ Codeine #3 [Tylenol # 3 -] 1 - 2 tab PO Q6H PRN #6 tablet MDD 8 07/03/17 Review of Systems - Review of Systems Able to Perform ROS?: Yes Comments:: 07/03/17 20:46 See HPI. All other systems reviewed and unremarkable <Josie Sanders - Last Filed: 07/03/17 20:45> *Physical Exam - Vital Signs Last Vital Signs Temp Pulse Resp BP Pulse Ox 98.6 F 90 24 156/97 99 07/03/17 17:12 07/03/17 17:12 07/03/17 17:12 07/03/17 17:12 07/03/17 17:12 - Physical Exam Comments: 07/03/17 20:46 GENERAL: Awake, alert, and fully oriented, in no acute distress HEENT: EOMI, MISTI MMM, OP WNL NECK: NCAT, no midline cervical tenderness CARDIOVASCULAR: RRR, nl s1/s2, no m/r/g LUNGS: Scattered rhonchi. no w/r. ABDOMEN: Soft, NTND EXTREMITIES: No edema, WWP, no rash NEURO: Neuro grossly intact, gait WNL, moving all 4. A&O x 3, mood/affect WNL. SKIN: Warm, Dry, normal turgor, no rashes or lesions noted. <Josie Sanders - Last Filed: 07/03/17 20:45> - Vital Signs Last Vital Signs Temp Pulse Resp BP Pulse Ox 98.6 F 90 24 156/97 99 07/03/17 17:12 07/03/17 17:12 07/03/17 17:12 07/03/17 17:12 07/03/17 17:12 <Opal Bell - Last Filed: 07/03/17 21:08> ED Treatment Course - RADIOLOGY Radiology Studies Ordered: Category Date Time Status CHEST PA & LAT [RAD] Stat Radiology 07/03/17 19:48 Taken <Opal Bell - Last Filed: 07/03/17 21:08> Medical Decision Making - Medical Decision Making 07/03/17 20:57 72yoF w/ chronic cough x years presents w/ increasing severity. Pt has close f/ u tomorrow. Simply seeking sxs relief tonight. - CXR r/o PNA - will attempt sxs relief w/ tylenol #3. Pt does not think she has tried this mediation before. - DC, has ENT f/u tomorrow. <Opal Bell - Last Filed: 07/03/17 21:08> *DC/Admit/Observation/Transfer - Attestations Scribe Attestion: 07/03/17 20:52 Documentation prepared by Josie Sanders, acting as medical typist for Opal Bell MD. <Josie Sanders - Last Filed: 07/03/17 20:45> - Discharge Dispostion Admit: No <Opal Bell - Last Filed: 07/03/17 21:08> Diagnosis at time of Disposition: Cough - Discharge Dispostion Disposition: HOME Condition at time of disposition: Good - Prescriptions Prescriptions: Acetaminophen W/ Codeine #3 [Tylenol # 3 -] 1 - 2 tab PO Q6H PRN #6 tablet MDD 8 PRN Reason: Cough - Referrals Referrals: ON STAFF,NOT [Primary Care Provider] - - Patient Instructions Additional Instructions: Continue with your primary physicians as scheduled. Tylenol #3 sent to your pharmacy. OK to take 1-2 tabs every 6 hours. OK to take Mucinex with Tylenol #3. - Post Discharge Activity
[2017-07-03 22:24] VITALS: BP 135/79; PULSE 74
== END 2017-07-03 22:09 | disposition home or self-care (01) ==
LOC: JER 17:05
DX: R05 Cough (principal); I10 Essential (primary) hypertension; K21.9 Gastro-esophageal reflux disease without esophagitis; E78.00 Pure hypercholesterolemia, unspecified
CPT/HCPCS: 71046-TC-FY; 99281-25

== ENCOUNTER 2021-05-16 17:45 | Emergency (ER) | payer OTHER ==
[2021-05-16] MEDS ORDERED: LORazepam 2 MG/ML SDV VIAL IM ONE (17:50)
[2021-05-16 18:22] VITALS: BMI 24.7
[2021-05-16] MEDS ORDERED: ACETAMINOPHEN 1000 MG/100 ML BAG IVPB ONE (18:26)
[2021-05-16] MEDS ORDERED: ACETAMINOPHEN INJECTION 100 ML IVPB ONE (18:29)
[2021-05-16 18:41] LABS: BASO % 0.6 % (0-2.0); EOS % 1.3 % (0-4.5); HEMATOCRIT 34.5 % (32.4-45.2); HEMOGLOBIN 11.9 GM/dL (10.7-15.3); LYMPH % 22.5 % (8-40); MCH 29.6 pg (25.7-33.7); MCHC 34.6 g/dl (32.0-36.0); MEAN CELL VOLUME 85.5 fl (80-96); MEAN PLT VOLUME 7.1 fl (7.5-11.1); MONO % 8.1 % (3.8-10.2); NEUT % 67.5 % (42.8-82.8); PLATELET COUNT 233 10^3/uL (134-434); RBC 4.03 M/mm3 (3.60-5.2); RDW 12.8 % (11.6-15.6); WHITE BLOOD COUNT 6.3 K/mm3 (4.0-10.0)
[2021-05-16 18:59] LABS: CHLORIDE 107 mmol/L (98-107); SODIUM 143 mmol/L (136-145)
[2021-05-16 19:01] LABS: CALCIUM 9.6 mg/dL (8.5-10.1)
[2021-05-16 19:02] LABS: ALBUMIN 4.1 g/dl (3.4-5.0); ANION GAP 9 MMOL/L (8-16); BLOOD UREA NITROGEN 9.6 mg/dL (7-18); CO2 27 mmol/L (21-32); GLUCOSE,RANDOM 84 mg/dL (74-106)
[2021-05-16 19:05] LABS: CREATININE 0.7 mg/dL (0.55-1.3); SGOT/AST 19 U/L (15-37); SGPT/ALT 24 U/L (13-61)
[2021-05-16 19:06] LABS: BILIRUBIN,TOTAL 0.5 mg/dL (0.2-1); TOT PROT 7.5 g/dl (6.4-8.2)
[2021-05-16 19:08] LABS: ALK PHOS 84 U/L (45-117)
[2021-05-16 20:04] VITALS: BP 148/76; PULSE 82; TEMP 97.2
== END 2021-05-16 20:04 | disposition home or self-care (01) ==
LOC: JER 17:45
PROC: 3E023GC Introduction of Other Therapeutic Substance into Muscle, Percutaneous Approach (ICD-10-PCS; principal; 2021-05-16)
PROC: 3E033GC Introduction of Other Therapeutic Substance into Peripheral Vein, Percutaneous Approach (ICD-10-PCS; principal; 2021-05-16)
DX: R09.89 Other specified symptoms and signs involving the circulatory and respiratory systems (principal)
CPT/HCPCS: 36415; 70490-TC; 71045-TC-FY; 80053; 82550; 84484; 85025; 93005; 93010; 99285-25; C9803; J0131; U0003; U0005

== ENCOUNTER 2021-12-13 10:32 | Inpatient (IN) | payer OTHER ==
[2021-12-13] MEDS ORDERED: ACETAMINOPHEN INJECTION 100 ML IVPB ONE (11:22)
[2021-12-13] MEDS ORDERED: SODIUM CHLORIDE 0.9% 1000 ML INFUS.BAG IV ONE (11:23)
[2021-12-13] MEDS ORDERED: ACETAMINOPHEN 1000 MG/100 ML BAG IVPB ONE (11:23)
[2021-12-13] MEDS ORDERED: METOCLOPRAMIDE HCL INJECTION 10 MG/2 ML VIAL IVPB ONE (12:03)
[2021-12-13] MEDS ORDERED: METOCLOPRAMIDE HCL INJECTION 10 MG/2 ML VIAL ONE (12:21)
[2021-12-13 12:32] LABS: VENOUS BASE EXCESS 0.7 mmol/L (-2-2); VENOUS O2 SATURATION 50.8 % (70-80); VENOUS PCO2 36.7 mmHg (38-52); VENOUS PH 7.441 (7.310-7.410)
[2021-12-13 12:41] LABS: BASO % 0.6 % (0-2.0); EOS % 0.1 % (0-4.5); HEMATOCRIT 32.7 % (32.4-45.2); HEMOGLOBIN 11.4 GM/dL (10.7-15.3); LYMPH % 23.6 % (8-40); MCH 29.2 pg (25.7-33.7); MEAN CELL VOLUME 83.4 fl (80-96); MEAN PLT VOLUME 7.3 fl (7.5-11.1); MONO % 7.1 % (3.8-10.2); NEUT % 68.6 % (42.8-82.8); PLATELET COUNT 273 10^3/uL (134-434); RBC 3.92 M/mm3 (3.60-5.2); RDW 13.3 % (11.6-15.6); WHITE BLOOD COUNT 5.7 K/mm3 (4.0-10.0)
[2021-12-13 12:55] LABS: CALCIUM 8.9 mg/dL (8.5-10.1)
[2021-12-13 12:56] LABS: ALBUMIN 3.7 g/dl (3.4-5.0); BLOOD UREA NITROGEN 10.3 mg/dL (7-18)
[2021-12-13 12:58] LABS: CREATININE 0.7 mg/dL (0.55-1.3)
[2021-12-13 13:01] LABS: BILIRUBIN,TOTAL 0.7 mg/dL (0.2-1)
[2021-12-13 15:47] LABS: EPI CELLS 6 /uL (0-25.1); HYALINE CASTS 1 /uL (0-3.1); URINE APPEARANCE CLEAR; URINE BACTERIA 42 /uL (0-1359); URINE BILIRUBIN NEGATIVE (NEGATIVE); URINE COLOR YELLOW; URINE GLUCOSE (UA) NEGATIVE (NEGATIVE); URINE KETONE NEGATIVE (NEGATIVE); URINE LEUK ESTERASE 1+ (NEGATIVE); URINE NITRITE NEGATIVE (NEGATIVE); URINE PROTEIN NEGATIVE (NEGATIVE); URINE RBC 35 /uL (0-23.9); URINE UROBILINOGEN 0.2 mg/dL (0.2-1.0); URINE WBC 63 /uL (0-25.8)
[2021-12-13] MEDS ORDERED: CEFTRIAXONE 1 GM in DEXTROSE 5%-WATER - 100 ML IVPB ONE (16:32)
[2021-12-13] MEDS ORDERED: CEFTRIAXONE 1 GM/50 ML BAG ONE (17:08)
[2021-12-13] MEDS: ACETAMINOPHEN 325 MG TABLET (FP) PO PRN (21:58)
[2021-12-14] MEDS: KETOROLAC TROMETHAMINE 15 MG/ML VIAL IVPUSH PRN (06:36)
[2021-12-14 09:25] LABS: BASO % 0.9 % (0-2.0); EOS % 1.7 % (0-4.5); HEMATOCRIT 32.4 % (32.4-45.2); HEMOGLOBIN 11.4 GM/dL (10.7-15.3); MCH 29.3 pg (25.7-33.7); MCHC 35.2 g/dl (32.0-36.0); MEAN CELL VOLUME 83.3 fl (80-96); MEAN PLT VOLUME 7.2 fl (7.5-11.1); NEUT % 57.4 % (42.8-82.8); PLATELET COUNT 237 10^3/uL (134-434); RBC 3.89 M/mm3 (3.60-5.2); RDW 13.2 % (11.6-15.6); WHITE BLOOD COUNT 4.1 K/mm3 (4.0-10.0)
[2021-12-14 09:56] LABS: ALBUMIN 3.5 g/dl (3.4-5.0); BLOOD UREA NITROGEN 7.6 mg/dL (7-18); TOT PROT 6.8 g/dl (6.4-8.2)
[2021-12-14 09:57] LABS: BILIRUBIN,TOTAL 0.7 mg/dL (0.2-1)
[2021-12-14 09:58] LABS: CALCIUM 8.6 mg/dL (8.5-10.1)
[2021-12-14 09:59] LABS: CREATININE 0.7 mg/dL (0.55-1.3)
[2021-12-14] MEDS: ACETAMINOPHEN 325 MG TABLET (FP) PO PRN (10:14)
[2021-12-14] MEDS: CEFTRIAXONE 1 GM in DEXTROSE 5%-WATER - 50 ML IVPB SCH (10:15)
[2021-12-14] MEDS: ENOXAPARIN NA (PORCINE) 40 MG/0.4 ML DISP.SYRIN SQ SCH (10:15)
[2021-12-14] MEDS ORDERED: SODIUM CHLORIDE 0.9% 500 ML INFUS.BAG IV SCH (11:15)
[2021-12-14] MEDS: ACETAMINOPHEN/CAFFEINE/BUTALBITAL 1 TAB PO PRN ×2 (11:47→19:46)
[2021-12-15] MEDS: CEFTRIAXONE 1 GM in DEXTROSE 5%-WATER - 50 ML IVPB SCH (09:35)
[2021-12-15] MEDS: ENOXAPARIN NA (PORCINE) 40 MG/0.4 ML DISP.SYRIN SQ SCH (09:36)
[2021-12-15] MEDS: ACETAMINOPHEN/CAFFEINE/BUTALBITAL 1 TAB PO PRN ×3 (10:41→23:05)
[2021-12-15 14:21] VITALS: BMI 20.6
[2021-12-15] MEDS: KETOROLAC TROMETHAMINE 15 MG/ML VIAL IVPUSH PRN (20:57)
[2021-12-15] MEDS: MELATONIN 5 MG TABLETS PO PRN (23:05)
[2021-12-16] MEDS ORDERED: ZOLPIDEM TARTRATE 5 MG TABLET PO ONE (00:16)
[2021-12-16] MEDS: ACETAMINOPHEN/CAFFEINE/BUTALBITAL 1 TAB PO PRN ×2 (06:20→22:10)
[2021-12-16] MEDS: KETOROLAC TROMETHAMINE 15 MG/ML VIAL IVPUSH PRN ×2 (06:20→16:09)
[2021-12-16] MEDS ORDERED: ACETAMINOPHEN 1000 MG/100 ML BAG IVPB ONE (09:08)
[2021-12-16] MEDS ORDERED: ACETAMINOPHEN/CAFFEINE/BUTALBITAL 1 TAB PO ONE (09:12)
[2021-12-16 09:23] LABS: EOS % 3.6 % (0-4.5); HEMATOCRIT 31.6 % (32.4-45.2); HEMOGLOBIN 11.5 GM/dL (10.7-15.3); LYMPH % 40.8 % (8-40); MCH 30.3 pg (25.7-33.7); MCHC 36.3 g/dl (32.0-36.0); MEAN CELL VOLUME 83.3 fl (80-96); MEAN PLT VOLUME 7.2 fl (7.5-11.1); MONO % 13.8 % (3.8-10.2); NEUT % 40.8 % (42.8-82.8); PLATELET COUNT 221 10^3/uL (134-434); RBC 3.79 M/mm3 (3.60-5.2); RDW 13.1 % (11.6-15.6); WHITE BLOOD COUNT 3.4 K/mm3 (4.0-10.0)
[2021-12-16] MEDS: ENOXAPARIN NA (PORCINE) 40 MG/0.4 ML DISP.SYRIN SQ SCH (09:24)
[2021-12-16 09:43] LABS: ALBUMIN 3.4 g/dl (3.4-5.0); CALCIUM 8.6 mg/dL (8.5-10.1); MAGNESIUM 2.2 mg/dL (1.8-2.4)
[2021-12-16 09:44] LABS: BLOOD UREA NITROGEN 12.7 mg/dL (7-18)
[2021-12-16 09:47] LABS: CREATININE 0.7 mg/dL (0.55-1.3); PHOSPHOROUS 4.1 mg/dL (2.5-4.9)
[2021-12-16 09:48] LABS: BILIRUBIN,TOTAL 0.4 mg/dL (0.2-1); TOT PROT 6.6 g/dl (6.4-8.2)
[2021-12-16] MEDS ORDERED: SUMAtriptan SUCCINATE 25 MG TABLET PO ONE ×2 (12:15→17:24)
[2021-12-16] MEDS: SODIUM CHLORIDE 0.9% 500 ML INFUS.BAG IV SCH ×2 (16:13→16:47)
[2021-12-16] MEDS: SODIUM CHLORIDE 1,000 ML IV SCH (18:02)
[2021-12-16] MEDS: NORTRIPTYLINE HCL 10 MG CAPSULE PO SCH (22:11)
[2021-12-17] MEDS: MELATONIN 5 MG TABLETS PO PRN (00:08)
[2021-12-17] MEDS: KETOROLAC TROMETHAMINE 15 MG/ML VIAL IVPUSH PRN ×2 (06:05→16:39)
[2021-12-17 10:47] LABS: BASO % 0.4 % (0-2.0); EOS % 3.4 % (0-4.5); HEMATOCRIT 32.9 % (32.4-45.2); HEMOGLOBIN 11.1 GM/dL (10.7-15.3); LYMPH % 42.1 % (8-40); MCH 29.2 pg (25.7-33.7); MCHC 33.7 g/dl (32.0-36.0); MEAN CELL VOLUME 86.6 fl (80-96); MEAN PLT VOLUME 7.6 fl (7.5-11.1); MONO % 10.9 % (3.8-10.2); NEUT % 43.2 % (42.8-82.8); PLATELET COUNT 242 10^3/uL (134-434); RDW 12.9 % (11.6-15.6); WHITE BLOOD COUNT 3.5 K/mm3 (4.0-10.0)
[2021-12-17 11:17] LABS: CALCIUM 8.7 mg/dL (8.5-10.1)
[2021-12-17 11:18] LABS: ALBUMIN 3.3 g/dl (3.4-5.0); BLOOD UREA NITROGEN 22.8 mg/dL (7-18); MAGNESIUM 2.2 mg/dL (1.8-2.4)
[2021-12-17 11:21] LABS: CREATININE 0.7 mg/dL (0.55-1.3)
[2021-12-17 11:22] LABS: BILIRUBIN,TOTAL 0.4 mg/dL (0.2-1); TOT PROT 6.4 g/dl (6.4-8.2)
[2021-12-17] MEDS: ENOXAPARIN NA (PORCINE) 40 MG/0.4 ML DISP.SYRIN SQ SCH (11:23)
[2021-12-17] MEDS: SODIUM CHLORIDE 1,000 ML IV SCH ×2 (11:35→19:04)
[2021-12-17] MEDS ORDERED: SUMAtriptan SUCCINATE 50 MG TABLET PO ONE (12:00)
[2021-12-17 13:31] LABS: PH,URINE 5.5 (5.0-8.0); URINE APPEARANCE CLEAR; URINE BILIRUBIN NEGATIVE (NEGATIVE); URINE COLOR YELLOW; URINE GLUCOSE (UA) NEGATIVE (NEGATIVE); URINE KETONE TRACE (NEGATIVE); URINE LEUK ESTERASE NEGATIVE (NEGATIVE); URINE NITRITE NEGATIVE (NEGATIVE); URINE PROTEIN NEGATIVE (NEGATIVE); URINE UROBILINOGEN 0.2 mg/dL (0.2-1.0)
[2021-12-17] MEDS: NORTRIPTYLINE HCL 10 MG CAPSULE PO SCH (21:40)
[2021-12-18] MEDS: KETOROLAC TROMETHAMINE 15 MG/ML VIAL IVPUSH PRN (02:09)
[2021-12-18] MEDS: MELATONIN 5 MG TABLETS PO PRN ×2 (02:09→21:20)
[2021-12-18] MEDS: ACETAMINOPHEN/CAFFEINE/BUTALBITAL 1 TAB PO PRN ×2 (06:10→15:01)
[2021-12-18] MEDS: SODIUM CHLORIDE 1,000 ML IV SCH ×3 (09:01→22:22)
[2021-12-18] MEDS: ENOXAPARIN NA (PORCINE) 40 MG/0.4 ML DISP.SYRIN SQ SCH (09:01)
[2021-12-18 11:29] LABS: BASO % 0.7 % (0-2.0); EOS % 4.3 % (0-4.5); HEMATOCRIT 30.3 % (32.4-45.2); HEMOGLOBIN 10.6 GM/dL (10.7-15.3); LYMPH % 40.6 % (8-40); MCH 29.8 pg (25.7-33.7); MCHC 34.9 g/dl (32.0-36.0); MEAN CELL VOLUME 85.3 fl (80-96); MEAN PLT VOLUME 7.6 fl (7.5-11.1); MONO % 9.8 % (3.8-10.2); NEUT % 44.6 % (42.8-82.8); PLATELET COUNT 209 10^3/uL (134-434); RBC 3.55 M/mm3 (3.60-5.2); RDW 13.2 % (11.6-15.6); WHITE BLOOD COUNT 3.2 K/mm3 (4.0-10.0)
[2021-12-18 11:41] LABS: CALCIUM 8.6 mg/dL (8.5-10.1)
[2021-12-18 11:42] LABS: ALBUMIN 3.2 g/dl (3.4-5.0); BLOOD UREA NITROGEN 14.4 mg/dL (7-18); MAGNESIUM 2.2 mg/dL (1.8-2.4)
[2021-12-18 11:45] LABS: CREATININE 0.6 mg/dL (0.55-1.3)
[2021-12-18 11:46] LABS: BILIRUBIN,TOTAL 0.2 mg/dL (0.2-1); TOT PROT 6.3 g/dl (6.4-8.2)
[2021-12-18] MEDS: NORTRIPTYLINE HCL 10 MG CAPSULE PO SCH (21:19)
[2021-12-19] MEDS: ACETAMINOPHEN 325 MG TABLET (FP) PO PRN ×2 (06:12→12:28)
[2021-12-19] MEDS: ENOXAPARIN NA (PORCINE) 40 MG/0.4 ML DISP.SYRIN SQ SCH ×2 (09:22→09:25)
[2021-12-19] MEDS: SODIUM CHLORIDE 1,000 ML IV SCH ×2 (09:22→17:42)
[2021-12-19 09:27] LABS: BASO % 0.5 % (0-2.0); EOS % 3.5 % (0-4.5); HEMATOCRIT 30.3 % (32.4-45.2); HEMOGLOBIN 10.6 GM/dL (10.7-15.3); LYMPH % 42.5 % (8-40); MCH 29.5 pg (25.7-33.7); MCHC 34.9 g/dl (32.0-36.0); MEAN CELL VOLUME 84.5 fl (80-96); MEAN PLT VOLUME 7.9 fl (7.5-11.1); MONO % 8.9 % (3.8-10.2); NEUT % 44.6 % (42.8-82.8); PLATELET COUNT 224 10^3/uL (134-434); RBC 3.58 M/mm3 (3.60-5.2); RDW 13.2 % (11.6-15.6); WHITE BLOOD COUNT 3.7 K/mm3 (4.0-10.0)
[2021-12-19 09:32] LABS: CALCIUM 8.5 mg/dL (8.5-10.1)
[2021-12-19 09:33] LABS: ALBUMIN 3.3 g/dl (3.4-5.0); BLOOD UREA NITROGEN 12.4 mg/dL (7-18)
[2021-12-19 09:36] LABS: CREATININE 0.6 mg/dL (0.55-1.3)
[2021-12-19 09:37] LABS: BILIRUBIN,TOTAL 0.4 mg/dL (0.2-1); TOT PROT 6.3 g/dl (6.4-8.2)
[2021-12-19] MEDS ORDERED: SUMAtriptan SUCCINATE 50 MG TABLET PO ONE (10:15)
[2021-12-19 14:24] VITALS: RESP 18
[2021-12-19] MEDS: ACETAMINOPHEN/CAFFEINE/BUTALBITAL 1 TAB PO PRN (17:44)
[2021-12-19] MEDS ORDERED: NORTRIPTYLINE HCL 25 MG CAPSULE PO SCH (22:00)
[2021-12-20] MEDS: ACETAMINOPHEN/CAFFEINE/BUTALBITAL 1 TAB PO PRN ×2 (04:51→13:05)
[2021-12-20] MEDS: ENOXAPARIN NA (PORCINE) 40 MG/0.4 ML DISP.SYRIN SQ SCH ×2 (10:46→10:51)
[2021-12-20 13:07] LABS: IRON SERUM 90 ug/dL (50-175); TOTAL IRON BINDING CAPACITY 364 ug/dL (250-450)
[2021-12-20 14:04] VITALS: BP 130/76; PULSE 71; TEMP 97.9
[2021-12-20 16:07] LABS: ATYPICAL pANCA <1:20 titer (Neg:<1:20); C-ANCA <1:20 titer (Neg:<1:20)
== END 2021-12-20 16:22 | disposition home or self-care (01) | DRG 103 ==
LOC: JER 10:32 → JERBED 15:38 → OBSVTOIN 17:15 → J6S 21:25
PROVIDERS: ADMIT Internal Medicine; ATTEND Nurse Practitioner Family
DX: G43.909 Migraine, unspecified, not intractable, without status migrainosus (principal); N39.0 Urinary tract infection, site not specified; G44.86 Cervicogenic headache; K21.9 Gastro-esophageal reflux disease without esophagitis; E78.00 Pure hypercholesterolemia, unspecified; J45.909 Unspecified asthma, uncomplicated; M54.9 Dorsalgia, unspecified; R53.1 Weakness; G44.209 Tension-type headache, unspecified, not intractable; Y92.89 Other specified places as the place of occurrence of the external cause; W18.30XA Fall on same level, unspecified, initial encounter
CPT/HCPCS: 0241U-QW; 36415; 70450-TC; 70551-TC; 71045-TC-FY; 80053; 80307; 81003; 82085; 82550; 82803; 83520; 83540; 83550; 83605; 83615; 83735; 84100; 84443; 84484; 85025; 85651; 86038; 86256; 86341; 87040; 87086; 93005; 93010; 93970-TC; 97116-GP; 97162-GP; 99285-25; G0378

== ENCOUNTER 2022-08-20 10:52 | Observation (INO) | payer OTHER ==
[2022-08-20] MEDS ORDERED: ACETAMINOPHEN 1000 MG/100 ML BAG IVPB ONE (11:50)
[2022-08-20] MEDS ORDERED: ACETAMINOPHEN INJECTION 100 ML IVPB ONE (11:59)
[2022-08-20 12:28] LABS: BASO % 1.1 % (0-2.0); EOS % 5.1 % (0-4.5); HEMATOCRIT 35.2 % (32.4-45.2); HEMOGLOBIN 12.4 GM/dL (10.7-15.3); LYMPH % 22.9 % (8-40); MCH 29.6 pg (25.7-33.7); MCHC 35.2 g/dl (32.0-36.0); MEAN CELL VOLUME 84.1 fl (80-96); MEAN PLT VOLUME 7.9 fl (7.5-11.1); MONO % 7.9 % (3.8-10.2); PH,URINE 7.5 (5.0-8.0); PLATELET COUNT 249 10^3/uL (134-434); RBC 4.18 M/mm3 (3.60-5.2); RDW 13.4 % (11.6-15.6); URINE APPEARANCE CLEAR; URINE BILIRUBIN NEGATIVE (NEGATIVE); URINE COLOR YELLOW; URINE GLUCOSE (UA) NEGATIVE (NEGATIVE); URINE KETONE NEGATIVE (NEGATIVE); URINE LEUK ESTERASE NEGATIVE (NEGATIVE); URINE NITRITE NEGATIVE (NEGATIVE); URINE PROTEIN NEGATIVE (NEGATIVE); URINE UROBILINOGEN 0.2 mg/dL (0.2-1.0); WHITE BLOOD COUNT 3.7 K/mm3 (4.0-10.0)
[2022-08-20 12:49] LABS: CALCIUM 9.1 mg/dL (8.5-10.1)
[2022-08-20 12:50] LABS: ALBUMIN 3.6 g/dl (3.4-5.0); BLOOD UREA NITROGEN 9.6 mg/dL (7-18)
[2022-08-20 12:53] LABS: CREATININE 0.6 mg/dL (0.55-1.3)
[2022-08-20 12:55] LABS: TOT PROT 7.2 g/dl (6.4-8.2)
[2022-08-20] MEDS ORDERED: KETOROLAC TROMETHAMINE 15 MG/ML VIAL IVPUSH ONE ×2 (13:03→14:12)
[2022-08-20] MEDS ORDERED: KETOROLAC TROMETHAMINE 15 MG/ML VIAL ONE ×2 (13:06→15:09)
[2022-08-20] MEDS ORDERED: LIDOCAINE 5% TOPICAL PATCH TP ONE (14:12)
[2022-08-20] MEDS ORDERED: METHOCARBAMOL 750 MG TAB PO ONE (14:12)
[2022-08-20] MEDS ORDERED: LIDOCAINE 5% TOPICAL PATCH ONE (15:09)
[2022-08-20] MEDS ORDERED: METHOCARBAMOL 500 MG TABLET ONE (15:09)
[2022-08-20] MEDS ORDERED: oxyCODONE HCL 5 MG TABLET PO ONE (16:14)
[2022-08-20] MEDS ORDERED: oxyCODONE HCL 5 MG TABLET ONE (17:10)
[2022-08-20] MEDS ORDERED: morphine CARPU-JECT 2 MG/1 ML DISP.SYRIN IVPUSH ONE (18:11)
[2022-08-20] MEDS ORDERED: LIDOCAINE PATCH REMOVAL MC SCH (22:00)
[2022-08-20] MEDS ORDERED: ACETAMINOPHEN 325 MG TABLET (FP) PO PRN (23:37)
[2022-08-21] MEDS: KETOROLAC TROMETHAMINE 10 MG TABLET PO PRN ×2 (00:05→06:01)
[2022-08-21] MEDS ORDERED: LIDOCAINE PATCH REMOVAL MC ONE (03:00)
[2022-08-21 05:01] VITALS: BMI 25.0
[2022-08-21] MEDS ORDERED: ALBUTEROL SO4 HFA INHALER IH PRN (06:30)
[2022-08-21] MEDS ORDERED: LIDOCAINE 2.5%/PRILOCAINE 2.5% 30 GRAM TUBE TP PRN (06:33)
[2022-08-21] MEDS: LIDOCAINE 5% TOPICAL PATCH TP SCH (10:26)
[2022-08-21] MEDS: CYCLOBENZAPRINE HCL 10 MG TABLET (FP) PO SCH ×3 (10:27→21:34)
[2022-08-21] MEDS: ENOXAPARIN NA (PORCINE) 40 MG/0.4 ML DISP.SYRIN SQ SCH (10:27)
[2022-08-21] MEDS: IBUPROFEN 600 MG TABLET (FP) PO SCH ×3 (11:50→23:30)
[2022-08-21] MEDS: ACETAMINOPHEN 500 MG TABLET (FP) PO SCH ×2 (13:43→21:33)
[2022-08-21] MEDS ORDERED: LIDOCAINE PATCH REMOVAL MC SCH (22:00)
[2022-08-21] MEDS ORDERED: NORTRIPTYLINE HCL 25 MG CAPSULE PO SCH (22:00)
[2022-08-22] MEDS: oxyCODONE HCL 5 MG TABLET PO PRN ×2 (01:01→08:15)
[2022-08-22] MEDS: CYCLOBENZAPRINE HCL 10 MG TABLET (FP) PO SCH (06:02)
[2022-08-22] MEDS: IBUPROFEN 600 MG TABLET (FP) PO SCH ×2 (06:02→12:56)
[2022-08-22] MEDS: ACETAMINOPHEN 500 MG TABLET (FP) PO SCH (06:03)
[2022-08-22] MEDS: LIDOCAINE 5% TOPICAL PATCH TP SCH (10:41)
[2022-08-22] MEDS: ENOXAPARIN NA (PORCINE) 40 MG/0.4 ML DISP.SYRIN SQ SCH ×2 (10:42→10:47)
[2022-08-22 10:43] VITALS: BP 101/55; PULSE 68; RESP 16; TEMP 97.8
== END 2022-08-22 13:00 | disposition home or self-care (01) ==
LOC: JER 10:52 → JERBED 20:46 → J7W 23:20
PROVIDERS: ADMIT Internal Medicine; ATTEND Internal Medicine
PROC: 3E033NZ Introduction of Analgesics, Hypnotics, Sedatives into Peripheral Vein, Percutaneous Approach (ICD-10-PCS; principal; 2022-08-20)
PROC: 3E0333Z Introduction of Anti-inflammatory into Peripheral Vein, Percutaneous Approach (ICD-10-PCS; 2022-08-20)
DX: R10.31 Right lower quadrant pain (principal); M54.9 Dorsalgia, unspecified; E78.00 Pure hypercholesterolemia, unspecified; K21.9 Gastro-esophageal reflux disease without esophagitis; I10 Essential (primary) hypertension; J45.909 Unspecified asthma, uncomplicated
CPT/HCPCS: 0241U-QW; 36415; 71046-TC-FY; 74176-TC; 80053; 81003; 85025; 87086; 93005; 93010; 97116-GP; 99285-25; G0378